=== PATIENT | male | born 1940 | race Caucasian/White ===

== ENCOUNTER → 2017-09-08 | Day surgery (SDC) | payer OTHER ==
[2017-08-31 15:25] VITALS: Ht 182.9 cm; Wt 108.2 kg
[~2017-09-08] VITALS: Ht 182.9 cm; Wt 108.2 kg
[~2017-09-08] MED LIST: 500ML BSS 0.3ML EPI 1:1000PF IRRIG ONE; ACETAMINOPHEN 325 MG TAB PO PRN; AMLO-110 PO; AMVISC PLUS 0.8ML SYRINGE INT OCU ONE; ATOR10TA82 PO; ATROPINE SULFATE 0.1 MG/ML 5ML SYR IV PRN; BSS FLUSH ONE; ENDOCOAT 0.85ML SYRINGE INT OCU ONE; EpHEDrine SULFATE INJ 50 MG/ML AMP IV PRN; EpINEphrine INJ 1MG/ML AMP 1 MG/ML AMP ONE; LACTATED RINGER'S 1000ML 500 ML IV SCH; LIDOCAINE 4% OP SOLN DROP CHARGE ONE; LIDOCAINE 4% OP SOLN DROP CHARGE OPL SCH; LIDOCAINE HCL 1% MPF 2 ML VIAL ONE; LORA-741 PO; LOSA1TAB38 PO; MIDAZOLAM HCL 1 MG/ML 2ML VIAL ONE; MIX: 4ML BSS 1ML EPI 1:1000 PF TOP ONE; MOXIFLOXACIN OPH SOLN PER DROP CHARGE ONE; NXM/40 PO; PHENYLEPHRINE HCL 10% OP SOLN 5 ML BTL OPL ONE; POVIDONE-IODINE OP SOLN 30 ML BTL ONE; PROPARACAINE 0.5% OP SOLN PER DROP CHARGE OPL SCH; PROPARACAINE HCL 0.5% OP SOLN 15 ML BTL OPL ONE; SERT25TA PO; TOBRAMYCIN/DEXAMETHASONE OPH OINT PER APPLN CHARGE ONE
[2017-09-08] MEDS: TROPICAMIDE 1% OP SOLN PER DROP CHARGE OPL SCH ×3 (07:10→07:20)
[2017-09-08] MEDS: PHENYLEPHRINE HCL 2.5% OP SOLN PER DROP CHARGE OPL SCH ×3 (07:10→07:19)
[2017-09-08] MEDS: CYCLOPENTOLATE HCL 1% OP SOLN PER DROP CHARGE OPL SCH ×3 (07:11→07:21)
[2017-09-08] MEDS: MOXIFLOXACIN OPH SOLN PER DROP CHARGE OPL SCH ×3 (07:12→07:22)
--- NOTE | 2017-09-08 07:33 | History & Physical Bridge - SC ---
H&P Re-Evaluation Bridge Note: I have examined the patient, reviewed the History & Physical and in the interval since the performance of the History & Physical I have noted the following changes of clinical significance: No changes noted
--- NOTE | 2017-09-08 08:50 | [facility] Post Operative Brief Note ---
Immediate Operative Summary Operative Date Sep 08, 2017. 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
--- NOTE | 2017-09-08 08:53 | Discharge Instructions-SurgCtr ---
Discharge Instructions Date of Service Sep 08, 2017. Visit Reason for Visit: Cataract Left Eye Discharge Discharge Diagnosis / Problem: left cataract Discharge Goals Goal(s): Decrease discomfort, Improve function Activity Recommendations Activity Limitations: as noted below Anesthesia . Post Anesthesia Instructions: If you have had General Anesthesia or IV Sedation: * Do not drive today. * Resume driving when surgeon permits. * Do not make important decisions or sign legal documents today. * Call surgeon for: 1. Temperature elevations greater than 101 degrees F. 2. Uncontrollable pain. 3. Excessive bleeding. 4. Persistent nausea and vomiting. 5. Medication intolerance (nausea, vomiting or rash). * For nausea and vomiting use only clear liquids such as: tea, soda, bouillon until nausea subsides, then gradually increase diet as tolerated. * If you have any concerns or questions, call your surgeon's office. If physician is unavailable and it is an emergency, call 911 or go to the nearest emergency room. . Instructions / Follow-Up Instructions / Follow-Up ACTIVITY RECOMMENDATIONS: * Light activities. * You may walk outside, read, watch television. * You may notice redness on the white part of the eye and some blurry vision - this is normal. MEDICATIONS: Resume previous medications unless instructed otherwise by your surgeon. Start all eye drops at 11 am today: * Eye drops (today): Prednisone - one drop in operative eye every 2 hours while awake Ofloxacin - one drop in operative eye every 2 hours while awake Ilevro - one drop in operative eye daily SPECIAL CARE INSTRUCTIONS: * Tape plastic shield over eye to sleep at night. Call your doctor at with any concerns or problems. FOLLOW UP VISIT: Follow-up with Dr Ding at [facility] as scheduled. Diet Recommendations Home Diet: no limitations Procedures Procedures Performed: Left Cataract Phacoemulsification With Intraocular Lens Implant Pending Studies Studies pending at discharge: no Medical Emergencies . Who to Call and When: Medical Emergencies: If at any time you feel your situation is an emergency, please call 911 immediately. . Non-Emergent Contact Non-Emergency issues call your: Surgeon . . "Provider Documentation" section prepared by Simone Ding. .
--- NOTE | 2017-09-08 08:53 | [facility] Operative Report ---
Operative Report Date of Service Sep 08, 2017. Operative Report DATE OF OPERATION: 09/08/17 PREOPERATIVE DIAGNOSIS: Senile nuclear cataract and astigmatism, left eye POSTOPERATIVE DIAGNOSIS: Senile nuclear cataract and astigmatism, left eye PROCEDURE PERFORMED: Femtosecond laser-assisted phacoemulsification with intraocular lens implantation, left eye SURGEON: Dr. Simone Ding ANESTHESIA: Topical with 1% intracameral lidocaine and monitored anesthesia care COMPLICATIONS: None DESCRIPTION OF PROCEDURE: After positively identifying the patient both verbally and by wristband in the preoperative area, the left eye was marked as the operative eye. Using a sterile marker, the 3:00, 6:00 and 9:00 positions on the limbus were marked after placing a drop of proparacaine. The patient was first taken to the laser room where the femtosecond laser was used to create the capsulotomy, lens fragmentation, main incision, and arcuate incisions. The patient was then brought back to the operating room by the anesthesia and nursing staff where they were given a drop of tetracaine and betadine into the operative eye. They were then sterilely prepped and draped in the standard fashion typical for ophthalmic surgery. Steri-strips were placed along the upper eyelids to keep the lashes back, and a lid speculum was placed into the operative eye. At this point, a documented time out was performed with members of the ophthalmology, nursing, and anesthesia staffs all agreeing upon the correct patient, correct location for surgery, correct procedure, and correct type and power of intraocular lens to be implanted. The microscope was then swung into position. Then, a paracentesis wound was made using a sideport blade. Then, in sequence, 1% preservative-free lidocaine followed by Endocoat viscoelastic was injected into the anterior chamber. Next , the main incision was opened with a Jasbir spatula, and Utrata forceps were used to remove the capsulotomy. Hydrodissection was then performed with BSS on a flat-tip cannula. Next, the phacoemulsification handpiece was introduced into the eye and used to remove the nucleus in a [id number]-[id number] fashion. This was done without complication and then the irrigation-aspiration handpiece was introduced into the eye and used to remove all remaining cortical and epinuclear material. Amvisc was then injected into the anterior chamber as well as into the capsular bag and using the lens injector system, an MX60 21.0 D lens, serial number [id number], and expiration date 03/2020 was injected into the capsular bag and rotated into the correct position. Next, the irrigation- aspiration handpiece was used to remove all remaining Amvisc. BSS was used to hydrate the main wound, and then BSS was injected into the paracentesis site to reach physiologic pressure and then the main wound was checked and found to be watertight. The patient was given drops of Vigamox and tobradex ointment into the operative eye, and then the surrounding area was cleaned and dried. A clear plastic shield was placed over the eye and the patient was then sat up and taken from the operating room by the anesthesia staff having tolerated the procedure well and suffering no complications. DISPOSITION: The patient was returned to the recovery room in stable condition. I attest to the content of the Intraoperative Record and any orders documented therein. Any exceptions are noted below.
[2017-09-08 08:55] VITALS: TEMP 36.5
[2017-09-08 09:10] VITALS: PULSE 64; O2SAT 95
[2017-09-08 09:21] VITALS: BP 146/80
--- NOTE | 2017-09-08 09:30 | Anesthesiology Progress Note ---
Anesthesia Post Op Note Date & Time Sep 08, 2017 at 09:30 Vital Signs Pain Intensity: 0 Vital Signs Past 12 Hours Date Time Temp Pulse Resp B/P (MAP) Pulse Ox O2 Delivery O2 Flow Rate FiO2 09/08/17 09:21 146/80 (102) 09/08/17 09:10 64 16 166/88 (114) 95 Room Air 09/08/17 08:55 36.5 68 16 156/101 (119) 96 Room Air 09/08/17 08:23 66 169/97 97 09/08/17 08:18 68 154/97 96 09/08/17 07:02 36.7 68 16 151/88 (109) 95 Room Air Notes Mental Status: alert / awake / arousable, participated in evaluation Nausea / Vomiting: adequately controlled Pain: adequately controlled Airway Patency, RR, SpO2: stable & adequate BP & HR: stable & adequate Hydration State: stable & adequate Anesthetic Complications: no major complications apparent
== END | disposition home or self-care (01) ==
LOC: X.SURG 06:45
PROVIDERS: ATTEND Ophthalmology
DX: H25.12 Age-related nuclear cataract, left eye (principal); I10 Essential (primary) hypertension; Z90.49 Acquired absence of other specified parts of digestive tract; Z90.89 Acquired absence of other organs; F41.9 Anxiety disorder, unspecified; Z79.899 Other long term (current) drug therapy; Z87.891 Personal history of nicotine dependence

== ENCOUNTER → 2017-09-22 | Day surgery (SDC) | payer OTHER ==
[2017-09-20 10:37] VITALS: Ht 182.9 cm; Wt 108.2 kg
[~2017-09-22] VITALS: Ht 182.9 cm; Wt 108.2 kg
[~2017-09-22] MED LIST changes: -LIDOCAINE 4% OP SOLN DROP CHARGE OPL SCH; +LIDOCAINE 4% OP SOLN DROP CHARGE OPR SCH; -PHENYLEPHRINE HCL 10% OP SOLN 5 ML BTL OPL ONE; +PHENYLEPHRINE HCL 10% OP SOLN 5 ML BTL OPR ONE; -PROPARACAINE 0.5% OP SOLN PER DROP CHARGE OPL SCH; +PROPARACAINE 0.5% OP SOLN PER DROP CHARGE OPR SCH; -PROPARACAINE HCL 0.5% OP SOLN 15 ML BTL OPL ONE; +PROPARACAINE HCL 0.5% OP SOLN 15 ML BTL OPR ONE
[2017-09-22] MEDS: PHENYLEPHRINE HCL 2.5% OP SOLN PER DROP CHARGE OPR SCH ×3 (07:22→07:35)
[2017-09-22] MEDS: TROPICAMIDE 1% OP SOLN PER DROP CHARGE OPR SCH ×3 (07:23→07:36)
[2017-09-22] MEDS: CYCLOPENTOLATE HCL 1% OP SOLN PER DROP CHARGE OPR SCH ×3 (07:24→07:38)
[2017-09-22] MEDS: MOXIFLOXACIN OPH SOLN PER DROP CHARGE OPR SCH ×3 (07:25→07:39)
--- NOTE | 2017-09-22 07:36 | History & Physical Bridge - [place] ---
H&P Re-Evaluation Bridge Note: Addendum: Right eye femtosecond laser-assisted cataract surgery.
--- NOTE | 2017-09-22 09:12 | [facility] Post Operative Brief Note ---
Immediate Operative Summary Operative Date Sep 22, 2017. Pre-Operative Diagnosis Right Eye Cataract Post-Operative Diagnosis same Procedure(s) Performed Right Cataract Phacoemulsification With Intraocular Lens Implant Surgeon Dr. Marcus Ding Critical Care Registered Nurse Surgeon(s) 0 Estimated Blood Loss 0 Findings Consistent with Post-Op Diagnosis Specimens none Anesthesia Type MAC Disposition Accompanied Pt To Recover: no Disposition:
[2017-09-22 09:15] VITALS: TEMP 36.6
--- NOTE | 2017-09-22 09:15 | [facility] Operative Report ---
Operative Report Date of Service Sep 22, 2017. Operative Report DATE OF OPERATION: 09/22/17 PREOPERATIVE DIAGNOSIS: Senile nuclear cataract and astigmatism, right eye POSTOPERATIVE DIAGNOSIS: Senile nuclear cataract and astigmatism, right eye PROCEDURE PERFORMED: Femtosecond laser-assisted phacoemulsification with toric intraocular lens implantation, right eye SURGEON: Dr. Simone Ding ANESTHESIA: Topical with 1% intracameral lidocaine and monitored anesthesia care COMPLICATIONS: None DESCRIPTION OF PROCEDURE: After positively identifying the patient both verbally and by wristband in the preoperative area, the right eye was marked as the operative eye. Using a sterile marker, the 3:00, 6:00, and 9:00 positions on the limbus were marked after placing a drop of proparacaine. A Robomarker was then used to tova the 26 degree axis for the toric lens The patient was taken to the laser room where the femtosecond laser was used to create the capsulotomy, lens fragmentation, and main incision. The patient was then brought back to the operating room by the anesthesia and nursing staff where they were given a drop of tetracaine and betadine into the operative eye. They were then sterilely prepped and draped in the standard fashion typical for ophthalmic surgery. Steri-strips were placed along the upper eyelids to keep the lashes back, and a lid speculum was placed into the operative eye. At this point, a documented time out was performed with members of the ophthalmology, nursing, and anesthesia staffs all agreeing upon the correct patient, correct location for surgery, correct procedure, and correct type and power of intraocular lens to be implanted. The microscope was then swung into position. Then, a paracentesis wound was made using a sideport blade. Then, in sequence, 1% preservative-free lidocaine followed by Endocoat viscoelastic was injected into the anterior chamber. Next , the main incision was opened with a Jasbir spatula, and Utrata forceps were used to remove the capsulotomy. Hydrodissection was then performed with BSS on a flat-tip cannula. Next, the phacoemulsification handpiece was introduced into the eye and used to remove the nucleus in a [[id number]-[id number] or stop-and -chop] fashion. This was done without complication and then the irrigation- aspiration handpiece was introduced into the eye and used to remove all remaining cortical and epinuclear material. Amvisc was then injected into the anterior chamber as well as into the capsular bag and using the lens injector system, a [id number] 21.0 D [id number] serial number, and expiration date 2020 was injected into the capsular bag and rotated into the correct position to correctly line up with the toric marking. Next, the irrigation-aspiration handpiece was used to remove all remaining Amvisc. BSS was used to hydrate the main wound, and then BSS was injected into the paracentesis site to reach physiologic pressure and then the main wound was checked and found to be watertight. The patient was given drops of Vigamox and tobradex ointment into the operative eye, and then the surrounding area was cleaned and dried. A clear plastic shield was placed over the eye and the patient was then sat up and taken from the operating room by the anesthesia staff having tolerated the procedure well and suffering no complications. DISPOSITION: The patient was returned to the recovery room in stable condition. I attest to the content of the Intraoperative Record and any orders documented therein. Any exceptions are noted below.
--- NOTE | 2017-09-22 09:16 | Discharge Instructions-SurgCtr ---
Discharge Instructions Date of Service Sep 22, 2017. Visit Reason for Visit: Right Cataract Discharge Discharge Diagnosis / Problem: right cataract Discharge Goals Goal(s): Decrease discomfort, Improve function Activity Recommendations Activity Limitations: as noted below Anesthesia . Post Anesthesia Instructions: If you have had General Anesthesia or IV Sedation: * Do not drive today. * Resume driving when surgeon permits. * Do not make important decisions or sign legal documents today. * Call surgeon for: 1. Temperature elevations greater than 101 degrees F. 2. Uncontrollable pain. 3. Excessive bleeding. 4. Persistent nausea and vomiting. 5. Medication intolerance (nausea, vomiting or rash). * For nausea and vomiting use only clear liquids such as: tea, soda, bouillon until nausea subsides, then gradually increase diet as tolerated. * If you have any concerns or questions, call your surgeon's office. If physician is unavailable and it is an emergency, call 911 or go to the nearest emergency room. . Instructions / Follow-Up Instructions / Follow-Up ACTIVITY RECOMMENDATIONS: * Light activities. * You may walk outside, read, watch television. * You may notice redness on the white part of the eye and some blurry vision - this is normal. MEDICATIONS: Resume previous medications unless instructed otherwise by your surgeon. Start all eye drops at 11:30 am today: * Eye drops (today): Prednisone - one drop in operative eye every 2 hours while awake Ofloxacin - one drop in operative eye every 2 hours while awake Ilevro - one drop in operative eye daily SPECIAL CARE INSTRUCTIONS: * Tape plastic shield over eye to sleep at night. Call your doctor at with any concerns or problems. FOLLOW UP VISIT: Follow-up with Dr Ding at [place] office as scheduled. Diet Recommendations Home Diet: no limitations Procedures Procedures Performed: Right Cataract Phacoemulsification With Intraocular Lens Implant Pending Studies Studies pending at discharge: no Medical Emergencies . Who to Call and When: Medical Emergencies: If at any time you feel your situation is an emergency, please call 911 immediately. . Non-Emergent Contact Non-Emergency issues call your: Surgeon . . "Provider Documentation" section prepared by Simone Ding. .
--- NOTE | 2017-09-22 09:29 | Anesthesiology Progress Note ---
Anesthesia Post Op Note Date & Time Sep 22, 2017 at 09:29 Vital Signs Pain Intensity: 0 Vital Signs Past 12 Hours Date Time Temp Pulse Resp B/P (MAP) Pulse Ox O2 Delivery O2 Flow Rate FiO2 09/22/17 09:15 36.6 58 16 155/83 (107) 94 Room Air 09/22/17 08:43 65 18 144/81 95 Room Air 09/22/17 08:34 60 18 138/82 94 Room Air 09/22/17 07:13 36.4 76 18 154/54 (87) 96 Room Air Notes Mental Status: alert / awake / arousable, participated in evaluation Nausea / Vomiting: adequately controlled Pain: adequately controlled Airway Patency, RR, SpO2: stable & adequate BP & HR: stable & adequate Hydration State: stable & adequate Anesthetic Complications: no major complications apparent
[2017-09-22 09:35] VITALS: O2SAT 96
[2017-09-22 09:40] VITALS: BP 155/85
== END | disposition home or self-care (01) ==
LOC: X.SURG 07:00
PROVIDERS: ATTEND Ophthalmology
DX: H25.11 Age-related nuclear cataract, right eye (principal); I10 Essential (primary) hypertension; K21.9 Gastro-esophageal reflux disease without esophagitis; E78.00 Pure hypercholesterolemia, unspecified; Z87.891 Personal history of nicotine dependence

== ENCOUNTER 2020-03-02 22:30 | Inpatient (IN) ==
--- OUTSIDE RECORDS SUMMARY | 2020-03-02 22:33 | External Medical Summary | Continuity of Care Document ---
:1940 Author Name Yolanda Tellez Address Unavailable Unavailable , Care Team Providers Name Role Phone Juwan Tellez, B Unavailable [email or web address] Unavailable Unavailable Unavailable Unavailable Unavailable Problems Active medical history not documented Allergies and Adverse Reactions Allergy history not documented Medications Medications not documented Procedures Procedures not documented Immunizations Immunizations not documented Plan of Treatment Planned Observations Planned Goals not documented Results No Known Results Results not documented
--- OUTSIDE RECORDS SUMMARY | 2020-03-02 22:33 | External Medical Summary | Continuity of Care Document ---
:1940 Author Name Yolanda Tellez Address Unavailable Unavailable , Care Team Providers Name Role Phone Juwan Tellez, B Unavailable [email or web address], [email or web address] Unavailable Unavailable Unavailable Unavailable Unavailable Problems Active medical history not documented Allergies and Adverse Reactions Allergy history not documented Medications Medications not documented Procedures Procedures not documented Immunizations Immunizations not documented Plan of Treatment Planned Observations Planned Goals not documented Results No Known Results Results not documented
[2020-03-02] MEDS ORDERED: SODIUM CHLORIDE 0.9% 1000ML 1,000 ML IV ONE (22:38)
[2020-03-02] MEDS ORDERED: PIPERACILL/TAZOBAC CONSULT ACTIVE PRN (22:40)
[2020-03-02] MEDS ORDERED: PIPERACILLIN/TAZOBACTAM 4.5 GM/120 ML BAG IV ONE (22:40)
--- NOTE | 2020-03-02 23:20 | Emergency Department Note ---
Impression & Plan Pneumonia, Hypoxia, Generalized weakness ED Provider Note NAME: ADAM SEVILLA JR AGE: 79 SEX: M : 1940 ARRIVES VIA: Walk-In INFORMANT: Patient, ED PROVIDER(S): Sal Serrano DO CHIEF COMPLAINT: Shortness of breath HPI: The patient is a 79-year-old male who presented to the emergency department for an evaluation of difficulty breathing. The patient was diagnosed this week with COVID-19. He states that multiple family members were also diagnosed with COVID-19. Over the course of the week he has been noticing increasing difficulty with ambulation and generalized weakness. He has had some falls from a standing position from generalized weakness. He denies any injury. He denies having any headache or head injury. He has no nausea or vomiting. He is had decreased p.o. intake because he states he does not feel hungry. He states he has had fevers and has been taking medications for fever. He states he had w orsening shortness of breath and cough. The cough is been overall nonproductive. He denies having any lower extremity swelling or pain. He states his symptoms are very severe especially with any ambulation. ROS: See above HPI for pertinent positives & negatives. A total of 10 systems reviewed and were otherwise negative. PAST MEDICAL HISTORY: See Below PAST SURGICAL HISTORY: See Below FAMILY HISTORY: See Below SOCIAL HISTORY: See Below HOME MEDICATIONS: See Below ALLERGIES: See Below VITALS: See Below PHYSICAL EXAMINATION: GENERAL: The patient is awake and alert. He is very listless and appears to be in mild to moderate distress. EYES: The conjunctivae are clear. The pupils are round and reactive. EARS, NOSE, MOUTH AND THROAT: The nose is without any evidence of any deformity. Mucous membranes are dry. NECK: The neck is nontender and supple. RESPIRATORY: Diminished breath sounds are noted throughout. There is poor air movement in the left lung field. Scattered rales are noted at the right base. CARDIOVASCULAR: Regular rate and rhythm noted there no murmurs rubs or gallops normal S1 normal S2. GASTROINTESTINAL: The abdomen is soft. Abdomen is nontender. MUSCULOSKELETAL/EXTREMITIES: There is no evidence of gross deformity full range of motion is noted in the hips and shoulders. SKIN: There is no obvious evidence of any rash. Trace pedal edema was noted bilaterally. NEUROLOGIC: Patient is awake alert and oriented x3 strength is symmetric patellar reflexes are 2+ bilaterally MEDICAL DECISION MAKING: The patient is a 79-year-old male who presented to the emergency department for an evaluation of generalized weakness and difficulty breathing. The patient has been noticing falls because of generalized weakness. He was diagnosed this week with COVID-19 after he had an exposure to a family member who also was positive for COVID-19. He was dropped off at the front door by a family member because he is been worsening with his symptoms. He was found to have significant hypoxia upon arrival to the emergency department. The patient was placed on supplemental oxygen with significant improvement of his hypoxia. I discussed the patient's laboratory and radiographic studies with him. He was treated with IV fluids and IV antibiotics without overhydration given the possibility of COVID-19 pneumonia. He was reevaluated multiple times. [facility]. [facility] have agreed to evaluate the patient in the emergency department for further management and disposition. Triage Nursing notes reviewed. Prior medical records reviewed Vital Signs: reviewed and remarkable for hypoxia Differential diagnosis: Reactive airway disease, pneumonia, pneumothorax, COPD, CHF, infections, cardiac ischemia, pulmonary embolism, musculoskeletal, gastrointestinal, as well as other pathologies. ER treatment provided: See below Diagnostics interpreted by me: ECG: EKG was obtained in the emergency department. My interpretation is normal sinus rhythm at 76 bpm. LVH was noted by voltage criteria. There is diffuse ST segment depressions noted. This was compared to a tracing from August 302014. No significant changes were noted. Cardiac Monitoring: An order was placed for continuous cardiac monitoring. The monitor shows a rate of 80 with sinus rhythm. Laboratory studies: As stated above and show below. Imaging studies: See below Consultation(s): 2330: I discussed this case with Dr. Collazo who is on-call for the [facility] hospitalist group. He is agreed to evaluate the patient in the emergency department for further management and disposition. ED COURSE: Procedures: none PDMP:reviewed and no issues Critical Care: I have personally spent greater than 60 minutes of critical care time in the direct management of this patient. This includes bedside care, interpretation of diagnostic studies, and testing, discussion with consultants, patient, and family members, and other required patient management activities. This 60 minutes is in excess of all separately billable procedures. Past Med/Surg History Medical History (Updated 03/03/20 @ 00:36 by Sal Serrano DO) Chest pain (Acute) Gastritis (Acute) GERD (gastroesophageal reflux disease) (Acute) Hypertension (Chronic) Social History Feels Safe at Home: Yes Smoking Status: Never smoker Allergies Allergies Allergy/AdvReac Type Severity Reaction Status Date / Time No Known Allergies Allergy Unknown Verified 03/02/20 23:07 Home Meds Home Medications Medication Instructions Recorded Confirmed amlodipine [Norvasc] 5 mg PO QAM 03/02/20 03/02/20 atorvastatin [Lipitor] 10 mg PO QAM 03/02/20 03/02/20 esomeprazole magnesium [Nexium] 40 mg PO QAM 03/02/20 03/02/20 lorazepam [Ativan] 0.5 mg PO TID PRN 03/02/20 03/02/20 losartan [Cozaar] 100 mg PO QAM 03/02/20 03/02/20 prednisone 0 mg PO UD 03/02/20 03/02/20 sertraline [Zoloft] 25 mg PO QAM 03/02/20 03/02/20 Results & Data (ED) Vital Signs Vital Signs - 24 hr 03/02/20 22:35 03/02/20 22:42 03/02/20 23:50 Temperature 37.2 C Temperature Source Oral Pulse Rate 81 77 Pulse Rhythm Regular Respiratory Rate 20 22 Blood Pressure 105/73 Blood Pressure Mean 83 Blood Pressure Position Lying Pulse Oximetry 77 L 93 93 Oxygen Delivery Method Room Air Nasal Cannula Nasal Cannula Oxygen Flow Rate 5 5 Sepsis Recent Fever Within 48 Hours No Sepsis New/Unexplained Change in Mental Status No Sepsis Action Taken by Nursing No Action Required Home Medications Current Medication List: was personally reviewed by me Laboratory Data Attestation: I reviewed the patient's lab results. Result diagrams: 03/02/20 23:42 03/02/20 23:42 Lab Results 03/02/20 03/02/20 03/02/20 Range/Units 22:40 23:42 23:42 WBC 10.46 (4.8-10.8) K/uL RBC 4.22 L (4.7-6.1) M/uL Hgb 12.1 L (14.0-18.0) g/dL Hct 36.8 L (42-52) % MCV 87.2 (80-100) fL MCH 28.7 (25-34) pg MCHC 32.9 (32-36) g/dL RDW Std Deviation 42.2 (36.4-46.3) fL RDW Coeff of Vinny 13.2 (11.5-14.5) % Plt Count 201 (130-400) K/uL MPV 11.0 H (7.4-10.4) fL Immature Gran % (Auto) 0.4 % Neut % (Auto) 74.1 % Lymph % (Auto) 12.6 % Harnett % (Auto) 12.8 % Eos % (Auto) 0.0 % Baso % (Auto) 0.1 % Neut # (Auto) 7.75 H (1.4-6.5) K/uL Lymph # (Auto) 1.32 (1.2-3.4) K/uL Harnett # (Auto) 1.34 H (0.11-0.59) K/uL Eos # (Auto) 0.00 (0-0.5) K/uL Baso # (Auto) 0.01 (0-0.2) K/uL Immature Gran # (Auto) 0.04 H (0.00-0.02) K/uL PT 11.9 (9.0-12.0) Seconds INR 1.1 (0.9-1.1) APTT 29.2 (21.0-31.0) Seconds PTT Ratio 1.0 VBG pH 7.48 H (7.36-7.41) VBG pCO2 38 (38-50) mmHg VBG pO2 45 mmHg VBG HCO3 27 mmol/L VBG O2 Saturation 79.8 % VBG Base Excess 3.5 mEq/L Sodium (136-145) mmol/L Potassium (3.5-5.1) mmol/L Chloride (98-107) mmol/L Carbon Dioxide (21-32) mmol/L Anion Gap (3-11) BUN (7-18) mg/dl Creatinine (0.6-1.4) mg/dl Est Cr Clr Drug Dosing ml/min Est GFR ( Amer) Est GFR (Non-Af Amer) BUN/Creatinine Ratio (10-20) Glucose (70-99) mg/dl Lactate (0.4-2.0) mmol/L Calcium (8.5-10.1) mg/dl Magnesium (1.8-2.4) mg/dl Total Bilirubin (0.2-1) mg/dl AST (15-37) U/L ALT (12-78) U/L Alkaline Phosphatase (45-117) U/L Lactate Dehydrogenase (87-241) U/L Total Creatine Kinase (39-308) U/L Troponin I (0-0.045) ng/ml Total Protein (6.4-8.2) gm/dl Albumin (3.4-5.0) gm/dl Globulin (2.5-4.0) gm/dl Albumin/Globulin Ratio (0.9-2) 03/02/20 03/02/20 03/02/20 Range/Units 23:42 23:42 23:46 WBC (4.8-10.8) K/uL RBC (4.7-6.1) M/uL Hgb (14.0-18.0) g/dL Hct (42-52) % MCV (80-100) fL MCH (25-34) pg MCHC (32-36) g/dL RDW Std Deviation (36.4-46.3) fL RDW Coeff of Vinny (11.5-14.5) % Plt Count (130-400) K/uL MPV (7.4-10.4) fL Immature Gran % (Auto) % Neut % (Auto) % Lymph % (Auto) % Harnett % (Auto) % Eos % (Auto) % Baso % (Auto) % Neut # (Auto) (1.4-6.5) K/uL Lymph # (Auto) (1.2-3.4) K/uL Harnett # (Auto) (0.11-0.59) K/uL Eos # (Auto) (0-0.5) K/uL Baso # (Auto) (0-0.2) K/uL Immature Gran # (Auto) (0.00-0.02) K/uL PT (9.0-12.0) Seconds INR (0.9-1.1) APTT (21.0-31.0) Seconds PTT Ratio VBG pH (7.36-7.41) VBG pCO2 (38-50) mmHg VBG pO2 mmHg VBG HCO3 mmol/L VBG O2 Saturation % VBG Base Excess mEq/L Sodium 134 L (136-145) mmol/L Potassium 3.7 (3.5-5.1) mmol/L Chloride 100 (98-107) mmol/L Carbon Dioxide 25 (21-32) mmol/L Anion Gap 9.0 (3-11) BUN 23 H (7-18) mg/dl Creatinine 1.29 (0.6-1.4) mg/dl Est Cr Clr Drug Dosing 59.4 ml/min Est GFR ( Amer) 61.6 Est GFR (Non-Af Amer) 53.1 BUN/Creatinine Ratio 18.1 (10-20) Glucose 127 H (70-99) mg/dl Lactate 1.0 (0.4-2.0) mmol/L Calcium 8.3 L (8.5-10.1) mg/dl Magnesium 2.0 (1.8-2.4) mg/dl Total Bilirubin 0.8 (0.2-1) mg/dl AST 26 (15-37) U/L ALT 30 (12-78) U/L Alkaline Phosphatase 54 (45-117) U/L Lactate Dehydrogenase 274 H (87-241) U/L Total Creatine Kinase 142 (39-308) U/L Troponin I 0.028 (0-0.045) ng/ml Total Protein 7.1 (6.4-8.2) gm/dl Albumin 2.9 L (3.4-5.0) gm/dl Globulin 4.2 H (2.5-4.0) gm/dl Albumin/Globulin Ratio 0.7 L (0.9-2) Imaging Data Attestation: I personally reviewed and interpreted this imaging study as follows: My Impression: Portable chest x-ray was obtained in the emergency department. My interpretation is severe bilateral infiltrates consistent with bilateral pneumonia. There is no free air. Heart size is normal. Blood Pressure Blood Pressure Findings: Low blood pressure Discharge Plan Visit Data Chief Complaint: Fall Stated Complaint: FALL ED Provider: Sal Serrano Discharge Problem: Pneumonia, Hypoxia, Generalized weakness Patient Disposition: Admitted As Inpatient Condition: Fair Forms Stand Alone Forms: My [facility] Prescriptions Prescriptions: No Action prednisone 10 mg tablet 0 mg PO UD RF: 0 atorvastatin [Lipitor] 10 mg tablet 10 mg PO QAM RF: 0 amlodipine [Norvasc] 5 mg tablet 5 mg PO QAM RF: 0 lorazepam [Ativan] 0.5 mg tablet 0.5 mg PO TID PRN (Reason: Anxiety) RF: 0 esomeprazole magnesium [Nexium] 40 mg capsule,delayed release(DR/EC) 40 mg PO QAM RF: 0 sertraline [Zoloft] 25 mg tablet 25 mg PO QAM RF: 0 losartan [Cozaar] 100 mg tablet 100 mg PO QAM RF: 0 Referrals Referrals: Robyn Parham DO [Primary Care Provider] -
[2020-03-02 23:53] LABS: Base Excess VBG 3.5 mEq/L; HCO3 VBG 27 mmol/L; Oxygen Saturation VBG 79.8 %; PCO2 VBG 38 mmHg (38-50); PO2 VBG 45 mmHg; pH VBG 7.48 (7.36-7.41)
[2020-03-03 00:02] LABS: Basophils # (auto) 0.01 K/uL (0-0.2); Basophils % (auto) 0.1 %; Hematocrit (blood only) 36.8 % (42-52); Hemoglobin 12.1 g/dL (14.0-18.0); Immature Granulocytes # (auto) 0.04 K/uL (0.00-0.02); Immature Granulocytes % (auto) 0.4 %; Lymphocytes # (auto) 1.32 K/uL (1.2-3.4); Lymphocytes % (auto) 12.6 %; Mean Corpuscular Hemoglobin 28.7 pg (25-34); Mean Corpuscular Hgb Conc 32.9 g/dL (32-36); Mean Corpuscular Volume 87.2 fL (80-100); Monocytes # (auto) 1.34 K/uL (0.11-0.59); Monocytes % (auto) 12.8 %; Neutrophils # (auto) 7.75 K/uL (1.4-6.5); Neutrophils % (auto) 74.1 %; Platelet Count 201 K/uL (130-400); RDW Coefficient of Variation 13.2 % (11.5-14.5); RDW Standard Deviation 42.2 fL (36.4-46.3); Red Blood Count 4.22 M/uL (4.7-6.1); White Blood Count 10.46 K/uL (4.8-10.8)
[2020-03-03] MEDS ORDERED: IPRATROPIUM BROMIDE HFA INHALER INH STA (00:03)
[2020-03-03] MEDS ORDERED: dexAMETHasone 1.5 ML IV STA (00:06)
[2020-03-03] MEDS ORDERED: ALBUTEROL HFA 8 GM INHALER INH STA (00:08)
[2020-03-03 00:14] LABS: INR 1.1 (0.9-1.1); Partial Thromboplastin Time 29.2 Seconds (21.0-31.0); Prothrombin Time 11.9 Seconds (9.0-12.0)
[2020-03-03 00:21] LABS: Potassium 3.7 mmol/L (3.5-5.1)
[2020-03-03 00:26] LABS: Albumin Level 2.9 gm/dl (3.4-5.0); BUN Creatinine Ratio 18.1 (10-20); Calcium 8.3 mg/dl (8.5-10.1); Creatinine Clr Calc Pharmacy 59.4 ml/min; Est GFR (African American) 61.6; Est GFR (Non-African American) 53.1
[2020-03-03 00:31] LABS: Albumin Globulin Ratio 0.7 (0.9-2); Bilirubin,Total 0.8 mg/dl (0.2-1); Globulin 4.2 gm/dl (2.5-4.0); Total Protein 7.1 gm/dl (6.4-8.2); Troponin I 0.028 ng/ml (0-0.045)
--- NOTE | 2020-03-03 01:14 | History & Physical Report ---
Date of Service March 03, 2020 Assessment & Plan (1) Acute hypoxemic respiratory failure: Secondary to COVID 19 bronchopneumonia, severe disease hypertension, stable prediabetes, outpatient hemoglobin A1c of 6.01 July 2019 Acute on chronic anemia, hemoglobin drop from baseline past tobacco abuse Medical telemetry Supplemental O2 Baseline ABG Decadron course Combivent MDI RTC given expiratory wheezes Pulmonary consult RE respiratory failure, COVID-19 pneumonia Remdesevir given severity of disease if pulmonary okay Anemia work-up, transfuse PRBC if hemoglobin less than 7 and or for symptomatic anemia Basal insulin, ISS BG goal [id number], update hemoglobin A1c DVT prophylaxis with Lovenox subcu Full code Case discussed with Dr. 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 He recommends Remdesevir and convalescent plasma tx given severity of illness. Total critical time was 40 minutes. History of Present Illness Search 3 Chief Complaint: Worsening shortness of breath Primary Care Provider: Robyn Parham, History obtained from patient and records. Medical history significant for hypertension, hyperlipidemia, prediabetes as per records, past tobacco abuse, chronic anemia (baseline hemoglobin of 13), skin cancer as per records. Patient not feeling well the last 6 days. Raspy barking cough. No chest pain or S OB initially. Later with watery diarrhea symptoms without abdominal pain. 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 PCP prescribed steroid course for possible bronchitis. Arrangements made for outpatient COVID-19 testing. Patient and 's COVID-19 swabs later found to be positive. Patient and instructed to quarantine at home. Patient later noted pleuritic chest pain with coughing and worsening shortness of breath. Chest pain improve on the flat/supine position as per patient. Cough continues to be dry as per patient. Generalized weakness without syncope. Poor appetite. Fever at home. At the ER, O2 sats noted to be 70s on room air initially. 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 Allergies Allergy/AdvReac Type Severity Reaction Status Date / Time No Known Allergies Allergy Unknown Verified 03/02/20 23:07 Home Medications Home Medications Medication Instructions Recorded Confirmed Type amlodipine [Norvasc] 5 mg PO QAM 03/02/20 03/02/20 History atorvastatin [Lipitor] 10 mg PO QAM 03/02/20 03/02/20 History esomeprazole magnesium [Nexium] 40 mg PO QAM 03/02/20 03/02/20 History lorazepam [Ativan] 0.5 mg PO TID PRN 03/02/20 03/02/20 History losartan [Cozaar] 100 mg PO QAM 03/02/20 03/02/20 History prednisone 0 mg PO UD 03/02/20 03/02/20 History sertraline [Zoloft] 25 mg PO QAM 03/02/20 03/02/20 History Past Med/Surg History Medical History (Updated 03/03/20 @ 08:19 by Andrés Barraza MD) Chest pain (Acute) Gastritis (Acute) GERD (gastroesophageal reflux disease) (Acute) Hypertension (Chronic) Social History Preferred Language: Moroccan Communication Ability: Effective Municipal Court Magistrate Required: No Beliefs That Will Affect Care: None Current Living Situation: Spouse Feels Safe at Home: Yes Safety Concerns: Feels Safe At This Time Smoking Status: Former smoker Hx Alcohol Use: Yes Alcohol type: beer Hx Substance Use: No Review of Systems Review of Systems: As per HPI, all 10 systems reviewed, all other ROS negative Physical Exam Physical Exam: GENERAL: uncomfortable, anxious, minimal respiratory distress, obese SKIN: Pallor , warm HEENT: Alopecia, bespectacled, pale palpebral conjunctivae, no ptosis, dry buccal mucosa, nasal cannula in place NECK : Supple, no tenderness CHEST : Crackles both lung montes expiratory wheezes, no tenderness HEART : RRR, no obvious murmurs ABDOMEN: Some distention, nontender RECTAL : Intact sphincter, yellow stool (FOBT negative) EXTREMITIES : No LE swelling/tenderness, no other conspicuous deformities noted NEUROLOGIC : Coherent, no facial asymmetry, no other gross focality Results & Data Results & Data ([facility]) Vital Signs (Past 12 Hours) Vital Signs Temp Pulse Resp BP Pulse Ox 03/02/20 23:50 77 22 93 03/02/20 22:42 93 03/02/20 22:35 37.2 C 81 20 105/73 77 L Laboratory Results Laboratory Results WBC 10.46 K/uL (4.8-10.8) 07/04/20 23:42 RBC 4.22 M/uL (4.7-6.1) L 03/02/20 23:42 Hgb 12.1 g/dL (14.0-18.0) L 03/02/20 23:42 Hct 36.8 % (42-52) L 03/02/20 23:42 MCV 87.2 fL (80-100) 03/02/20 23:42 MCH 28.7 pg (25-34) 03/02/20 23:42 MCHC 32.9 g/dL (32-36) 03/02/20 23:42 RDW Std Deviation 42.2 fL (36.4-46.3) 03/02/20 23: RDW Coeff of Vinny 13.2 % (11.5-14.5) 03/02/20 23: Plt Count 201 K/uL (130-400) 03/02/20 23:42 MPV 11.0 fL (7.4-10.4) H 03/02/20 23:42 Immature Gran % (Auto) 0.4 % 03/02/20 23:42 Neut % (Auto) 74.1 % 03/02/20 23:42 Lymph % (Auto) 12.6 % 03/02/20 23:42 Ford % (Auto) 12.8 % 03/02/20 23:42 Eos % (Auto) 0.0 % 03/02/20 23:42 Baso % (Auto) 0.1 % 03/02/20 23:42 Neut # (Auto) 7.75 K/uL (1.4-6.5) H 03/02/20 23:42 Lymph # (Auto) 1.32 K/uL (1.2-3.4) 03/02/20 23:42 Ford # (Auto) 1.34 K/uL (0.11-0.59) H 03/02/20 23:42 Eos # (Auto) 0.00 K/uL (0-0.5) 03/02/20 23:42 Baso # (Auto) 0.01 K/uL (0-0.2) 03/02/20 23:42 Immature Gran # (Auto) 0.04 K/uL (0.00-0.02) H 03/02/20 23:42 PT 11.9 Seconds (9.0-12.0) 03/02/20 23:42 INR 1.1 (0.9-1.1) 03/02/20 23:42 APTT 29.2 Seconds (21.0-31.0) 03/02/20 23:42 PTT Ratio 1.0 03/02/20 23:42 VBG pH 7.48 (7.36-7.41) H 03/02/20 22:40 VBG pCO2 38 mmHg (38-50) 03/02/20 22:40 VBG pO2 45 mmHg 03/02/20 22:40 VBG HCO3 27 mmol/L 03/02/20 22:40 VBG O2 Saturation 79.8 % 03/02/20 22:40 VBG Base Excess 3.5 mEq/L 03/02/20 22:40 Sodium 134 mmol/L (136-145) L 03/02/20 23:42 Potassium 3.7 mmol/L (3.5-5.1) 03/02/20 23:42 Chloride 100 mmol/L (98-107) 03/02/20 23:42 Carbon Dioxide 25 mmol/L (21-32) 03/02/20 23:42 Anion Gap 9.0 (3-11) 03/02/20 23:42 BUN 23 mg/dl (7-18) H 03/02/20 23:42 Creatinine 1.29 mg/dl (0.6-1.4) 03/02/20 23:42 Est Cr Clr Drug Dosing 59.4 ml/min 03/02/20 23:42 Est GFR ( Amer) 61.6 03/02/20 23:42 Est GFR (Non-Af Amer) 53.1 03/02/20 23:42 BUN/Creatinine Ratio 18.1 (10-20) 03/02/20 23:42 Glucose 127 mg/dl (70-99) H 03/02/20 23:42 Lactate 1.0 mmol/L (0.4-2.0) 03/02/20 23:46 Calcium 8.3 mg/dl (8.5-10.1) L 03/02/20 23:42 Magnesium 2.0 mg/dl (1.8-2.4) 03/02/20 23:42 Total Bilirubin 0.8 mg/dl (0.2-1) 03/02/20 23:42 AST 26 U/L (15-37) 03/02/20 23:42 ALT 30 U/L (12-78) 03/02/20 23:42 Alkaline Phosphatase 54 U/L (45-117) 03/02/20 23:42 Lactate Dehydrogenase 274 U/L (87-241) H 03/02/20 23:42 Total Creatine Kinase 142 U/L (39-308) 03/02/20 23:42 Troponin I 0.028 ng/ml (0-0.045) 03/02/20 23:42 Total Protein 7.1 gm/dl (6.4-8.2) 03/02/20 23:42 Albumin 2.9 gm/dl (3.4-5.0) L 03/02/20 23:42 Globulin 4.2 gm/dl (2.5-4.0) H 03/02/20 23:42 Albumin/Globulin Ratio 0.7 (0.9-2) L 03/02/20 23:42 Procalcitonin 0.31 ng/ml (0-0.5) 03/02/20 23:42 Diagnostic Findings Chest x-ray as per my interpretation bilateral pneumonia EKG as per my interpretation : Rate 75, NSR, LAD, LAFB, LVH, no ischemia
[2020-03-03] MEDS ORDERED: CONSULT PHARMACY STA (01:37)
[2020-03-03] MEDS ORDERED: TRAMADOL HCL 50 MG TABLET PO PRN (02:55)
[2020-03-03] MEDS ORDERED: GLUCAGON FOR INJ 1 MG VIAL SQ PRN (02:55)
[2020-03-03] MEDS ORDERED: DEXTROSE 50% 50 ML SYRINGE IV PRN (02:55)
[2020-03-03] MEDS ORDERED: CARBOHYDRATES FOR HYPOGLYCEMIA PO PRN (02:55)
[2020-03-03] MEDS ORDERED: GLUCOSE 10 TABS/TUBE PO PRN (02:55)
[2020-03-03] MEDS ORDERED: GLUCOSE 40% GEL 15 GM TUBE PO PRN (02:55)
[2020-03-03] MEDS ORDERED: PROMETHAZINE HCL 12.5 MG in SODIUM CHLORIDE 0.9% 50 ML IV PRN (02:55)
[2020-03-03] MEDS ORDERED: ACETAMINOPHEN 325 MG TAB PO PRN (02:55)
[2020-03-03] MEDS ORDERED: INSULIN GLARGINE SOLOSTAR 100 UNITS/ML 3 ML PEN SC ONE ×2 (03:15→21:00)
[2020-03-03] MEDS ORDERED: REMDESIVIR 200 mg: Day 1 IV ONE (03:30)
[2020-03-03] MEDS: guaiFENesin 600 MG TABCR PO SCH ×3 (03:40→20:14)
[2020-03-03] MEDS: INSULIN ASPART 100 UNITS/ML 3 ML PEN SC SCH ×5 (03:54→20:30)
[2020-03-03 05:00] LABS: Hematocrit (blood only) 33.6 % (42-52); Hemoglobin 11.5 g/dL (14.0-18.0); Mean Corpuscular Hgb Conc 34.2 g/dL (32-36); Mean Corpuscular Volume 84.8 fL (80-100); Mean Platelet Volume 10.6 fL (7.4-10.4); Platelet Count 171 K/uL (130-400); RDW Standard Deviation 39.8 fL (36.4-46.3); Red Blood Count 3.96 M/uL (4.7-6.1); White Blood Count 11.33 K/uL (4.8-10.8)
[2020-03-03 05:03] LABS: Base Excess ABG 2.1 mEq/L (-9-1.8); HCO3 ABG 25 mmol/L (19-24); Oxygen Saturation ABG 93.3 % (90-95); PCO2 ABG 35 mmHg (35-46); PO2 ABG 67 mmHg (80-95); pH ABG 7.48 (7.35-7.45)
[2020-03-03 05:07] LABS: Allen Test Pos (Pos)
[2020-03-03 05:20] LABS: Basophils # (auto) 0.01 K/uL (0-0.2); Basophils % (auto) 0.1 %; Immature Granulocytes # (auto) 0.05 K/uL (0.00-0.02); Immature Granulocytes % (auto) 0.4 %; Lymphocytes # (auto) 0.88 K/uL (1.2-3.4); Lymphocytes % (auto) 7.8 %; Monocytes # (auto) 0.88 K/uL (0.11-0.59); Monocytes % (auto) 7.8 %; Neutrophils # (auto) 9.51 K/uL (1.4-6.5); Neutrophils % (auto) 83.9 %
[2020-03-03 05:28] LABS: Albumin Level 2.6 gm/dl (3.4-5.0); BUN Creatinine Ratio 18.5 (10-20); Calcium 7.8 mg/dl (8.5-10.1); Creatinine Clr Calc Pharmacy 63.3 ml/min; Est GFR (African American) 66.5; Est GFR (Non-African American) 57.4; Potassium 3.7 mmol/L (3.5-5.1)
[2020-03-03 05:31] LABS: Albumin Globulin Ratio 0.7 (0.9-2); Bilirubin,Total 0.9 mg/dl (0.2-1); Ferritin 1298.9 ng/ml (8-388); Total Protein 6.6 gm/dl (6.4-8.2)
[2020-03-03] MEDS: NSS 30mL Flush, Days 1-5 IV SCH (05:57)
[2020-03-03] MEDS: ALBUTEROL HFA 8 GM INHALER INH SCH ×4 (08:20→19:27)
[2020-03-03] MEDS: IPRATROPIUM BROMIDE HFA INHALER INH SCH ×4 (08:20→19:27)
[2020-03-03] MEDS: SERTRALINE HCL 50 MG TABLET PO SCH (08:21)
--- NOTE | 2020-03-03 08:22 | Pulmonary Consultation ---
Date of Consultation March 03, 2020 Assessment & Plan (1) Acute hypoxemic respiratory failure: Impression: 79-year-old male with COVID-19 viral pneumonia admitted with progressive hypoxemic respiratory failure. Recommendations: 1. Hypoxemic respiratory failure: Continue supplemental oxygen titrated to keep saturations 85 to 90%. Okay to transition to high flow oxygen if needed. Would give the patient 1 dose of Lasix to see if there is any component of potential hydrostatic edema contributing to his hypoxemic respiratory failure. Would also recommend empiric antibiotics as were unable to exclude potential secondary bacterial component. Will place on Rocephin and doxycycline and anticipate 3 to 5-day course. Could consider self pronating if the patient has progressive increasing oxygen requirement 2. Novel coronavirus pneumonia/infection: Inflammatory markers elevated. He harrison s received Remdesivir and should complete the course. Orders were entered by the primary service for convalescent plasma through the [facility] clinical trial. Continue zinc. He has been started on dexamethasone per recent study demonstrating benefit in patients with severe disease. Would recommend rechecking inflammatory markers in 48 hours Recommend discussion with patient and family as to whether or not he would want aggressive efforts including intubation mechanical ventilation should his respiratory status decline. Consideration for palliative care consultation would also be appropriate to define goals of therapy in the event the patient should clinically worsen. This is deferred to the primary service (2) COVID-19: History of Present Illness Attending Physician: Yesica Boyer MD History of Present Illness Asked by hospitalist to assist in management of this patient admitted with hypoxemic respiratory failure due to novel coronavirus infection. History is obtained from discussion with the hospitalist as well as review the electronic medical record. The patient is a 79-year-old male with a history of hypertension and depression as well as overweight who apparently was diagnosed with novel coronavirus last week. The actual test is not available in our system to review but this was reported to the ER staff and the admitting hospitalist. Over the last week the patient has had issues with progressive weakness and shortness of breath. He was dropped off the emergency room last night due to shortness of breath and found to be significantly hypoxemic. He was placed on supplemental oxygen. Chest x-ray demonstrated bibasilar pulmonary infiltrates. His inflammatory markers were elevated. He was admitted to the hospitalist service and started on zinc, Remdesivir and an order was placed for convalescent plasma which is currently pending. Allergies Allergy/AdvReac Type Severity Reaction Status Date / Time No Known Allergies Allergy Unknown Verified 03/02/20 23:07 Home Medications Home Medications Medication Instructions Recorded Confirmed Type amlodipine [Norvasc] 5 mg PO QAM 03/02/20 03/02/20 History atorvastatin [Lipitor] 10 mg PO QAM 03/02/20 03/02/20 History esomeprazole magnesium [Nexium] 40 mg PO QAM 03/02/20 03/02/20 History lorazepam [Ativan] 0.5 mg PO TID PRN 03/02/20 03/02/20 History losartan [Cozaar] 100 mg PO QAM 03/02/20 03/02/20 History prednisone 0 mg PO UD 03/02/20 03/02/20 History sertraline [Zoloft] 25 mg PO QAM 03/02/20 03/02/20 History Patient History Medical History (Updated 03/03/20 @ 08:19 by Andrés Barraza MD) Chest pain (Acute) Gastritis (Acute) GERD (gastroesophageal reflux disease) (Acute) Hypertension (Chronic) Social History Preferred Language: Macedonian Communication Ability: Effective [employer]/S[employer] Manager Required: No Beliefs That Will Affect Care: None Current Living Situation: Spouse Feels Safe at Home: Yes Safety Concerns: Feels Safe At This Time Smoking Status: Former smoker Hx Alcohol Use: Yes Alcohol type: beer Hx Substance Use: No Review of Systems Review of Systems: Please refer to admission H&P. No changes. Physical Exam Physical Exam: Physical exam deferred due to COVID-19 restrictions and hospital policy. Please refer to the exam from the primary service from today Results & Data Results & Data ([facility]) Vital Signs (Past 12 Hours) Vital Signs Temp Pulse Pulse Resp BP BP Pulse Ox 03/03/20 08:09 36.3 C L 70 16 144/76 H 92 03/03/20 04:44 36.5 C 03/03/20 03:49 82 03/03/20 02:57 38.3 C H 82 26 H 122/68 89 L 03/03/20 02:00 82 24 137/65 94 03/03/20 01:30 82 24 164/72 H 92 03/03/20 01:03 80 20 142/72 H 92 03/02/20 23:50 77 22 93 03/02/20 22:42 93 03/02/20 22:35 37.2 C 81 20 105/73 77 L Laboratory Results 03/03/20 04:00 03/03/20 04:00 ESR 49 03/02/20 03/03/20 22:40 04:00 ABG pH 7.48 H ABG pCO2 35 ABG pO2 67 L ABG HCO3 25 H ABG O2 Saturation 93.3 ABG Base Excess 2.1 H VBG pH 7.48 H VBG pCO2 38 VBG pO2 45 VBG HCO3 27 VBG O2 Saturation 79.8 VBG Base Excess 3.5 Ferritin 1298 LDH 274 C-reactive protein 17 Procalcitonin 0.31 Diagnostic Findings Chest x-ray from yesterday was independently reviewed. It demonstrates bibasilar pulmonary infiltrates. PG Care Time/CCT Total # of Minutes Spent Total Time Spent with Patient: Total time spent is greater than 50% in coor dination of care (as documented) at patient's floor/unit and/or counseling patient: Coding Level of Care Code 74963 Initial Inpt Care Lvl 3 Diagnoses Acute hypoxemic respiratory failure J96.01 COVID-19 U07.1 Time Spent (min) 55
[2020-03-03] MEDS: LOSARTAN POTASSIUM 50 MG TAB PO SCH (08:24)
[2020-03-03] MEDS: ATORVASTATIN 10 MG TAB PO SCH (08:24)
[2020-03-03] MEDS: PANTOprazole 40 MG TAB PO SCH (08:25)
[2020-03-03] MEDS: AMLODIPINE BESYLATE 5 MG TAB PO SCH (08:25)
[2020-03-03] MEDS ORDERED: FUROSEMIDE 40 MG TAB PO ONE (08:30)
[2020-03-03] MEDS: ASCORBIC ACID 500 MG TAB PO SCH ×2 (08:31→20:15)
[2020-03-03] MEDS: MAGNESIUM OXIDE 400 MG TAB PO SCH (08:31)
[2020-03-03] MEDS: CHOLECALCIFEROL 1,000 UNITS 25 MCG TAB PO SCH (08:32)
[2020-03-03] MEDS: ZINC SULFATE 220 MG CAPSULE PO SCH (08:32)
--- NOTE | 2020-03-03 08:56 | XRay Report ---
XR chest 1V portable HISTORY: 79 years-old Male SEPSIS acute sepsis with reported Covid 19 COMPARISON: Chest radiograph 08/30/2014 TECHNIQUE: Portable AP view of the chest FINDINGS: Multifocal mixed interstitial and alveolar opacities are noted within the bilateral mid and lower diane g zones. Cardiac silhouette is mildly enlarged. No overt pulmonary edema, pneumothorax or large pleur al effusion.. Remote fracture of the mid left clavicle. Degenerative changes of the shoulders and spi ne. IMPRESSION: Mixed interstitial and alveolar opacities within the mid and lower lung zones are compati ble with multifocal pneumonia. Close follow-up is needed. ACT 112: Negative or not required by law. The above report was generated using voice recognition software. It may contain grammatical, syntax o r spelling errors. Electronically signed by: Pietro Padilla M.D. 03/03/2020 8:55 AM
[2020-03-03] MEDS ORDERED: ENOXAPARIN INJ 40 MG/0.4 ML SYR SQ SCH (09:00)
[2020-03-03 10:41] LABS: D Dimer 990 ug/L FEU (0-500)
[2020-03-03] MEDS: cefTRIAXone SODIUM 2,000 MG in DEXTROSE 5% 50 ML IV SCH (11:07)
[2020-03-03] MEDS: DOXYCYCLINE HYCLATE 100 MG CAP PO SCH ×2 (11:07→20:14)
--- NOTE | 2020-03-03 12:18 | Electrocardiogram Report ---
Test Reason : Blood Pressure : / mmHG Vent. Rate : 076 BPM Atrial Rate : 076 BPM P-R Int : 164 ms QRS Dur : 104 ms QT Int : 380 ms P-R-T Axes : 052 -36 030 degrees QTc Int : 427 ms Normal sinus rhythm Left axis deviation Minimal voltage criteria for LVH, may be normal variant Abnormal ECG When compared with ECG of 30-AUG-2014 07:46, No significant change was found Confirmed by Sal Charles ([id number]) on 03/03/2020 12:17:41 PM Referred By: REFERRED SELF Confirmed By:Sal Charles
[2020-03-03] MEDS ORDERED: ACETAMINOPHEN 325 MG TAB PO ONE (12:50)
[2020-03-03] MEDS: ENOXAPARIN 100 MG/1ML SYR SC SCH ×2 (14:02→20:14)
--- NOTE | 2020-03-03 14:51 | Hospitalist Progress Note ---
Date of Service March 03, 2020 Assessment & Plan (1) Acute hypoxemic respiratory failure: . (2) COVID-19: (3) Pneumonia: (4) Hypoxia: He and his recently tested positive for COVID-19 outpatient Present on admission with worsening SOB, fever, cough associated with diarrhea CXR showed mixed interstitial and alveolar opacities within the mid and lower lung zones are compatible with multifocal pneumonia Just starting on high flow oxygen since oxygen saturation dropped below 80% on 10L NC Pt appears to be at high risk of progression to life threatening illness Pulmonology on board Received Remdesivir and would complete the course. Convalescent plasma through the [facility] clinical trial ordered Dr. Truong explained to the patient about the [place] study and Convalescent plasma in details Pt signed the consent forms to participate in the study and to received the Convalescent Plasma Continue Dexamethasone 6mg IV for now, will plan to transition once pt respiratory status improves to complete 10days course Will monitor BS while on dexamethasone Starting on Rocephin and doxycycline and anticipate 3 to 5-day course to cover for bacterial pneumonia Continue high flow oxygen and keep oxygen saturation btw 85 to 90 % Will monitor inflammatory markers CRP, ESR, Ferritin level Monitor LFT closely while on Remdesivir Discussed with patient about mechanical ventilation in the events his respiratory status continue to worsening while on high flow oxygen, He agreed with mechanical Ventilation if requires Started on Zinc, Vitamin C, Vitamin D3 and Magnesium supplements Case discussed with Pulmonology Dr. Barraza I called his to update her and no one answered. Left her a VM to call back Will keep on PCU for now Continue monitor closely (5) Generalized weakness: Due to acute illness Fall precaution (6) Elevated d-dimer: D-dimer 990 Initiated therapeutic Lovenox for now Will repeat Ddimer in am If pt will require anticoagulant, will consider to change lovenox to eliquis (7) Elevated glucose: Due to Dexamethasone No hx of Diabetes Will check Hba1c Continue insulin sliding scale Will consult pharmacy for glycemic management Continue monitor BS (8) Hypertension: BP stable Continue Losartan and amlodipine Continue monitor BP closely DVT px on Lovenox subq CODE status Full code Admission and Anticipated Discharge Date Admission Date: March 03, 2020 Subjective Pt was seen and examined Lying in bed with mild respiratory distress Pt said that he continues to have a dry cough He said that he had 2 episodes of diarrhea this morning I called his Charlee, unfortunately she did not answered. Left VM to call back Pt said that he feels weak Denies any chest pain, palpitation and dizziness Physical Exam Physical Exam: General- No acute distress Head- atraumatic Eyes- PERRL, EOMI, ENT- oropharynx clear Neck- supple, no JVD Lungs- diminished breath sound Heart- regular rhythm; no murmur Abdomen- normal bowel sounds, soft, +tender in L side of abdomen with deep palpation Extremities- no calf tenderness Neuro- alert, oriented x 3; PERRL, EOMI; no facial palsy; no dysarthria Skin- warm & dry Results & Data Results & Data ([facility]) Vital Signs (Past 12 Hours) Vital Signs Temp Pulse Pulse Resp BP Pulse Ox 03/03/20 13:04 69 03/03/20 11:34 36.7 C 72 16 134/70 95 03/03/20 08:09 36.3 C L 70 16 144/76 H 92 03/03/20 04:44 36.5 C 03/03/20 03:49 82 03/03/20 02:57 38.3 C H 82 26 H 122/68 89 L (1) Pneumonia Laterality: bilateral Lung location: unspecified part of lung Pneumonia type: due to unspecified organism Qualified Code(s): J18.9 - Pneumonia, unspecified organism
[2020-03-03] MEDS ORDERED: PHARMACY GLYCEMIC MGMT CONSULT PRN (17:30)
--- NOTE | 2020-03-03 18:06 | Pharmacy Report ---
PHA: Glycemic Control AP - Date of Service March 03, 2020 - Assessment & Plan Laboratory Tests 03/03/20 03/03/20 03/03/20 03:39 08:15 11:30 POC Glucose 157 H 214 H 264 H 03/03/20 16:48 POC Glucose 188 H Insulin resistance: Receiving DXM 6mg IV q24h, Doxy/Rocephin, Remdesivir. A1c pending 76 AM. * Basal insulin: Lantus 5 units sq 75 in AM. Give Lantus 10 units sq this evening, reassess 7/6 AM. * Correctional Insulin: Novolog Correction per scale ACHS Goal Range: Low 140 mg/dL - High 180 mg/dL Tighten Correction Factor to: 20 mg/dL/unit * Prandial insulin: Tighten Carb ratio to 1 unit per 8 grams CHO consumed Pharmacy will continue to monitor patient daily and write orders per [facility] inpatient glycemic control protocol. Thanks. * Please note that the plan above was derived based on current level of insulin resistance and hospital stress. These recommendations are appropriate for inpatient admission only. Plan of care upon discharge will need to be reassessed to avoid potential outpatient hypo/hyperglycemia.
[2020-03-04] MEDS: REMDESIVIR 100mg: Days 2-5 IV SCH (03:54)
[2020-03-04] MEDS: ACETAMINOPHEN 500 MG TAB PO PRN ×2 (03:55→09:29)
[2020-03-04] MEDS: NSS 30mL Flush, Days 1-5 IV SCH (05:22)
[2020-03-04 07:11] LABS: D Dimer 550 ug/L FEU (0-500)
[2020-03-04 07:17] LABS: BUN Creatinine Ratio 23.2 (10-20); Calcium 8.1 mg/dl (8.5-10.1); Creatinine Clr Calc Pharmacy 74.3 ml/min; Est GFR (African American) 80.8; Est GFR (Non-African American) 69.7; Potassium 3.6 mmol/L (3.5-5.1)
[2020-03-04 07:22] LABS: C Reactive Protein 14.8 mg/dl (0-0.29); Ferritin 1555.4 ng/ml (8-388)
[2020-03-04] MEDS: IPRATROPIUM BROMIDE HFA INHALER INH SCH ×4 (07:23→19:06)
[2020-03-04] MEDS: ALBUTEROL HFA 8 GM INHALER INH SCH ×4 (07:23→19:06)
[2020-03-04 07:33] LABS: Estimated Average Glucose 148 mg/dl; Hemoglobin A1C 6.8 % (4.5-5.6)
[2020-03-04] MEDS: INSULIN ASPART 100 UNITS/ML 3 ML PEN SC SCH ×4 (07:48→20:46)
[2020-03-04] MEDS: MAGNESIUM OXIDE 400 MG TAB PO SCH (08:00)
[2020-03-04] MEDS: ASCORBIC ACID 500 MG TAB PO SCH ×2 (08:00→21:15)
[2020-03-04] MEDS: CHOLECALCIFEROL 1,000 UNITS 25 MCG TAB PO SCH (08:00)
[2020-03-04] MEDS: PANTOprazole 40 MG TAB PO SCH (08:00)
[2020-03-04] MEDS: ATORVASTATIN 10 MG TAB PO SCH (08:01)
[2020-03-04] MEDS: ZINC SULFATE 220 MG CAPSULE PO SCH (08:01)
[2020-03-04] MEDS: ENOXAPARIN 100 MG/1ML SYR SC SCH (08:01)
[2020-03-04] MEDS: SERTRALINE HCL 50 MG TABLET PO SCH (08:01)
[2020-03-04] MEDS: DOXYCYCLINE HYCLATE 100 MG CAP PO SCH ×2 (08:01→21:16)
[2020-03-04] MEDS: guaiFENesin 600 MG TABCR PO SCH ×2 (08:01→21:16)
[2020-03-04] MEDS: AMLODIPINE BESYLATE 5 MG TAB PO SCH (08:01)
[2020-03-04] MEDS: LOSARTAN POTASSIUM 50 MG TAB PO SCH (08:02)
[2020-03-04] MEDS: cefTRIAXone SODIUM 2,000 MG in DEXTROSE 5% 50 ML IV SCH (08:03)
[2020-03-04] MEDS: DEXAMETHASONE SOD PHOSPHATE 6 MG in SYRINGE 0 ML IV SCH (08:04)
[2020-03-04] MEDS ORDERED: INSULIN GLARGINE SOLOSTAR 100 UNITS/ML 3 ML PEN SC SCH (09:00)
[2020-03-04] MEDS ORDERED: INSULIN GLARGINE SOLOSTAR 100 UNITS/ML 3 ML PEN SC ONE (09:00)
--- NOTE | 2020-03-04 12:28 | Pulmonology Progress Note ---
Date of Service March 04, 2020 Assessment & Plan (1) Acute hypoxemic respiratory failure: Impression: 79-year-old male with COVID-19 viral pneumonia admitted with progressive hypoxemic respiratory failure. Covid-19 was done as an outpatient approximately a week ago. The actual test result is not available in our system but it was reported to the ER staff and admitting hospitalist. --Acute hypoxic respiratory failure Secondary to multilobar pneumonia in the Covid-19 positive patient Continue with high flow to maintain saturation 88 to 92%. Awake proning if there is desaturation even on high flow. Continue with Remdesivir for total of 5 days and later decide whether the patient will benefit from another 5 days of dosing. Continue with dexamethasone 6 mg daily for total of 10 days. Recommend PPI post access Continue with zinc Orders for convalescent plasma has been ordered as per the [facility] trial. Patient CRP is trending down to 14.8 from 17. CPK, AST, ALT and creatinine within normal limit. Procalcitonin has been negative. I would repeat a procalcitonin again tomorrow. We will continue with antibiotic coverage as well for at least 5 days. Plan: Recommend strict in and out. Consider placing [place]. Given the patient is not in respiratory distress continue with the current care. If there is worsening in oxygenation Tocilizumab can be considered. (2) COVID-19: Admission and Anticipated Discharge Date Admission Date: March 03, 2020 Subjective Patient was observed from outside of the room. On the monitor system he was saturating 92% on 70% high flow 30 L with heart rate of 74 at rest. His respiratory rate was around 16/min. Patient did not seem to be in any distress. T-max 38.3 early in the morning today Review of Systems Review of Systems: Not obtained Physical Exam Physical Exam: Deferred due to covid 19 restrictions. Please refer to exam from primary service today. Results & Data Results & Data ([facility]) Vital Signs (Past 12 Hours) Vital Signs Temp Pulse Pulse Pulse Resp BP Pulse Ox 03/04/20 11:36 37.5 C 69 18 122/67 88 L 03/04/20 11:21 69 16 90 03/04/20 11:20 69 16 90 03/04/20 07:58 37.4 C 77 18 149/71 H 95 03/04/20 07:47 36.5 C 84 96 H 18 156/72 H 96 03/04/20 07:24 71 20 89 L 03/04/20 07:23 71 20 89 L 03/04/20 03:53 38.3 C H 80 24 161/78 H 87 L 03/04/20 03:16 75 24 92 03/03/20 04:00 03/04/20 06:18 Laboratory Tests 03/04/20 03/04/20 03/04/20 06:18 06:18 06:18 ESR 52 H D-Dimer 550 H* Ferritin 1555.4 H C-Reactive Protein 14.80 H PG Care Time/CCT Total # of Minutes Spent Total Time Spent with Patient: Total time spent is greater than 50% in coordination of care (as documented) at patient's floor/unit and/or counseling patient: Coding Level of Care Code 60964 Subseq Hosp Care Lvl 2 Diagnoses Acute hypoxemic respiratory failure J96.01 COVID-19 U07.1
[2020-03-04] MEDS ORDERED: PIPERACILL/TAZOBAC CONSULT ACTIVE PRN (13:03)
[2020-03-04] MEDS ORDERED: PIPERACILLIN/TAZOBACTAM 3.375 GM in DEXTROSE 5% 100 ML IV ONE (13:30)
--- NOTE | 2020-03-04 15:08 | Hospitalist Progress Note ---
Date of Service March 04, 2020 Assessment & Plan (1) Acute hypoxemic respiratory failure: . (2) COVID-19: (3) Pneumonia: (4) Hypoxia: He and his recently tested positive for COVID-19 outpatient Present on admission with worsening SOB, fever, cough associated with diarrhea CXR showed mixed interstitial and alveolar opacities within the mid and lower lung zones are compatible with multifocal pneumonia Just starting on high flow oxygen since oxygen saturation dropped below 80% on 10L NC Pt appears to be at high risk of progression to life threatening illness Pulmonology on board Received Remdesivir and would complete the course. Convalescent plasma through the [facility] clinical trial ordered Dr. Truong explained to the patient about the [place] study and Convalescent plasma in details Pt signed the consent forms to participate in the study and to received the Convalescent Plasma Waiting for the Convalescent plasma from [facility] (Called the blood bank and did not receive the plasma convalescent yet) Continue Dexamethasone 6mg IV daily for now, will plan to transition once pt respiratory status improves to complete 10days course Continue monitor BS while on dexamethasone Continue high flow oxygen and keep oxygen saturation btw 85 to 90 % ESR slightly increased from 49 to 52, ferritin increased from 1298. CRP decreased from 17 to 14, D-dimer dropped from 990 to 550 today Continue monitor inflammatory markers CRP, ESR, Ferritin level every 48hrs Blood cx positive for gram negative bacilli IV Rocephin changed to IV Zosyn and will continue IV doxycycline for now Will repeat procalcitonin tomorrow Liver enzymes stable, will continue monitor LFT closely while on Remdesivir Discussed with patient about mechanical ventilation in the events his respiratory status continue to worsening while on high flow oxygen, He agreed with mechanical Ventilation if requires Continue Zinc, Vitamin C, Vitamin D3 and Magnesium supplements Case discussed with Pulmonology Sam If his respiratory status does not improves and worsening in oxygenation Tocilizumab can be considered 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 [employer] recommended to change Lovenox to 40mg BID subq for now Advised pt to continue with proning Continue monitor closely in PCU (5) Bacteremia: Blood cx positive for Gram negative bacilli Febrile with Tmax 38.3 IV Rocephin changed to IV Zosyn and continue IV doxycycline Repeat blood cx collected today Will check Procalcitonin tomorrow Will continue monitor closely (6) Generalized weakness: Due to acute illness Fall precaution Will do PT/OT once respiratory status stable (7) Elevated d-dimer: D-dimer 990 on admission, trending down to 550 today Case discussed with Pulmonology Dr. Vargas that recommended to change Lovenox to 40mg BID If pt will require short term anticoagulant on discharge, will consider to change lovenox to eliquis (8) Elevated glucose: Due to Dexamethasone Hba1c 6.8 on 03/04/20 Continue insulin sliding scale Pharmacy on board for glycemic management Continue monitor BS (9) Hypertension: BP stable Continue Losartan and amlodipine Continue monitor BP closely DVT px on Lovenox subq CODE status Full code Disposition Continue monitor closely in PCU Admission and Anticipated Discharge Date Admission Date: March 03, 2020 Subjective Pt was seen and examined Lying in bed with mild respiratory distress Pt said that he feels very weak He said that he continues to have diarrhea He said that his room feels very hot He said that he is breathing slightly improves compare to when he came Continue to require high flow oxygen with oxygen saturation 90% Called his Charlee and provided with updates Current denies any chest pain, palpitation, dizziness Physical Exam Physical Exam: General- No acute distress Head- atraumatic Eyes- PERRL, EOMI, ENT- oropharynx clear Neck- supple, no JVD Lungs- diminished breath sound Heart- regular rhythm; no murmur Abdomen- normal bowel sounds, soft, +tender in L side of abdomen with deep palpation Extremities- no calf tenderness Neuro- alert, oriented x 3; PERRL, EOMI; no facial palsy; no dysarthria Skin- warm & dry Results & Data Results & Data ([facility]) Vital Signs (Past 12 Hours) Vital Signs Temp Pulse Pulse Pulse Resp BP Pulse Ox 03/04/20 11:36 37.5 C 69 18 122/67 88 L 03/04/20 11:21 69 16 90 03/04/20 11:20 69 16 90 03/04/20 07:58 37.4 C 77 18 149/71 H 95 03/04/20 07:47 36.5 C 84 96 H 18 156/72 H 96 03/04/20 07:24 71 20 89 L 03/04/20 07:23 71 20 89 L 03/04/20 03:53 38.3 C H 80 24 161/78 H 87 L 03/04/20 03:16 75 24 92 (1) Pneumonia Laterality: bilateral Lung location: unspecified part of lung Pneumonia type: due to unspecified organism Qualified Code(s): J18.9 - Pneumonia, unspecified organism
[2020-03-04] MEDS: PIPERACILLIN/TAZOBACTAM 3.375 GM in DEXTROSE 5% 100 ML IV SCH (17:42)
[2020-03-04 18:03] LABS: Appearance Urine Clear (Clear); Bilirubin Urine Negative (Negative); Blood Urine Negative (Negative); Color Urine Yellow; Glucose Urine UA Negative (Negative); Ketones Urine Negative (Negative); Leukocyte Esterase Urine Negative (Negative); Nitrite Urine Negative (Negative); Protein Urine Negative (Negative); Specific Gravity Urine 1.023 (1.000-1.030); Urobilinogen Urine Negative (Negative); pH Urine 5.5 (4.5-7.5)
[2020-03-04] MEDS: ENOXAPARIN INJ 40 MG/0.4 ML SYR SQ SCH (20:34)
[2020-03-04] MEDS ORDERED: ACETAMINOPHEN 325 MG TAB PO ONE (21:00)
[2020-03-04] MEDS ORDERED: ENOXAPARIN 100 MG/1ML SYR SC SCH (21:00)
[2020-03-05] MEDS: PIPERACILLIN/TAZOBACTAM 3.375 GM in DEXTROSE 5% 100 ML IV SCH ×3 (01:00→17:40)
[2020-03-05] MEDS: REMDESIVIR 100mg: Days 2-5 IV SCH (03:55)
[2020-03-05] MEDS: NSS 30mL Flush, Days 1-5 IV SCH (05:17)
[2020-03-05 06:40] LABS: Potassium 3.4 mmol/L (3.5-5.1)
[2020-03-05 06:41] LABS: BUN Creatinine Ratio 23.5 (10-20); Calcium 8.4 mg/dl (8.5-10.1); Est GFR (African American) 85.8; Est GFR (Non-African American) 74.1
[2020-03-05] MEDS: ALBUTEROL HFA 8 GM INHALER INH SCH ×4 (07:33→19:54)
[2020-03-05] MEDS: IPRATROPIUM BROMIDE HFA INHALER INH SCH ×4 (07:34→19:54)
[2020-03-05] MEDS ORDERED: POTASSIUM CHLORIDE 20 MEQ TABCR PO STA (08:10)
[2020-03-05] MEDS: CYANOCOBALAMIN 500 MCG TABLET (VITAMIN B-12) PO SCH (08:42)
[2020-03-05] MEDS: DEXAMETHASONE SOD PHOSPHATE 6 MG in SYRINGE 0 ML IV SCH (08:42)
[2020-03-05] MEDS: DOXYCYCLINE HYCLATE 100 MG CAP PO SCH ×2 (08:42→21:46)
[2020-03-05] MEDS: ASCORBIC ACID 500 MG TAB PO SCH ×2 (08:43→21:46)
[2020-03-05] MEDS: MAGNESIUM OXIDE 400 MG TAB PO SCH (08:43)
[2020-03-05] MEDS: PANTOprazole 40 MG TAB PO SCH (08:43)
[2020-03-05] MEDS: ATORVASTATIN 10 MG TAB PO SCH (08:43)
[2020-03-05] MEDS: guaiFENesin 600 MG TABCR PO SCH ×2 (08:43→21:46)
[2020-03-05] MEDS: LOSARTAN POTASSIUM 50 MG TAB PO SCH (08:43)
[2020-03-05] MEDS: AMLODIPINE BESYLATE 5 MG TAB PO SCH (08:43)
[2020-03-05] MEDS: ENOXAPARIN INJ 40 MG/0.4 ML SYR SQ SCH ×2 (08:44→21:44)
[2020-03-05] MEDS: SERTRALINE HCL 50 MG TABLET PO SCH (08:44)
[2020-03-05] MEDS: ZINC SULFATE 220 MG CAPSULE PO SCH (08:44)
[2020-03-05] MEDS: CHOLECALCIFEROL 1,000 UNITS 25 MCG TAB PO SCH (08:45)
[2020-03-05] MEDS: INSULIN ASPART 100 UNITS/ML 3 ML PEN SC SCH ×4 (08:45→22:24)
[2020-03-05] MEDS ORDERED: INSULIN GLARGINE SOLOSTAR 100 UNITS/ML 3 ML PEN SC ONE (09:00)
--- NOTE | 2020-03-05 12:19 | Pulmonology Progress Note ---
Date of Service March 05, 2020 Assessment & Plan (1) Acute hypoxemic respiratory failure: Impression: 79-year-old male with COVID-19 viral pneumonia admitted with progressive hypoxemic respiratory failure. Covid-19 was done as an outpatient approximately a week ago. The actual test result is not available in our system but it was reported to the ER staff and admitting hospitalist. --Acute hypoxic respiratory failure Secondary to multilobar pneumonia in the Covid-19 positive patient Continue with high flow to maintain saturation 88 to 92%. Awake proning if there is desaturation even on high flow. Continue with Remdesivir for total of 5 days and later decide whether the patient will benefit from another 5 days of dosing. Continue with dexamethasone 6 mg daily for total of 10 days. Recommend PPI Continue with zinc Orders for convalescent plasma has been ordered as per the [facility] trial. Patient CRP is trending down to 14.8 from 17. CPK, AST, ALT and creatinine within normal limit. Procalcitonin has been negative. Repeat procalcitonin 03/05/2020 0.19, would continue with antibiotics for total of 5 days. Plan: Clinically patient seems to be improving given the oxygen requirements are going down. Antibiotics were changed to Zosyn because 1 of the blood culture was growing gram-negative bacilli. I repeated the blood pressure please follow it up to make sure this is not contaminant. Urine is clean. Repeat ferritin, CRP, ESR and d-dimer in the morning. (2) COVID-19: Admission and Anticipated Discharge Date Admission Date: March 03, 2020 Subjective Patient seen from outside of the room. Patient was breathing comfortably at the rate of 18/min on high flow. Saturation was 91% on 60% high flow 30 L Patient does not seem to be in any distress. Review of Systems Review of Systems: Not obtained Physical Exam Physical Exam: Deferred due to covid 19 restrictions. Please refer to exam from primary service today. Results & Data Results & Data ([facility]) Vital Signs (Past 12 Hours) Vital Signs Temp Pulse Pulse Resp BP BP Pulse Ox 03/05/20 11:56 37.1 C 74 14 130/72 90 03/05/20 08:00 67 03/05/20 07:30 36.7 C 67 24 118/91 88 L 03/05/20 07:20 66 20 88 L 03/05/20 04:00 72 16 92 03/05/20 03:06 69 18 82 L 03/05/20 03:00 67 17 148/84 H 88 L 03/05/20 05:30 PG Care Time/CCT Total # of Minutes Spent Total Time Spent with Patient: Total time spent is greater than 50% in coordination of care (as documented) at patient's floor/unit and/or counseling patient: Coding Level of Care Code 02537 Subseq Hosp Care Lvl 2 Diagnoses Acute hypoxemic respiratory failure J96.01 COVID-19 U07.1
--- NOTE | 2020-03-05 17:11 | Hospitalist Progress Note ---
Date of Service March 05, 2020 Assessment & Plan (1) Acute hypoxemic respiratory failure: . (2) COVID-19: (3) Pneumonia: (4) Hypoxia: He and his recently tested positive for COVID-19 outpatient Present on admission with worsening SOB, fever, cough associated with diarrhea CXR showed mixed interstitial and alveolar opacities within the mid and lower lung zones are compatible with multifocal pneumonia Just starting on high flow oxygen since oxygen saturation dropped below 80% on 10L NC Pt appears to be at high risk of progression to life threatening illness Pulmonology on board Received Remdesivir and would complete the course. Convalescent plasma through the [facility] clinical trial ordered Dr. Truong explained to the patient about the [place] study and Convalescent plasma in details Pt signed the consent forms to participate in the study and to received the Convalescent Plasma Received 1 unit of Convalescent plasma on 03/04/20- No complications Continue Dexamethasone 6mg IV daily for now, will plan to transition once pt respiratory status improves to complete 10days course Continue monitor BS while on dexamethasone Continue high flow oxygen and keep oxygen saturation btw 88 to 92 % ESR slightly increased from 49 to 52, ferritin increased from 1298. CRP decreased from 17 to 14, D-dimer dropped from 990 to 550 today Continue monitor inflammatory markers CRP, ESR, Ferritin level every 48hrs Blood cx positive for gram negative bacilli possible contamination, repeat blood cx on 03/04 showed no growth so far IV Rocephin changed to IV Zosyn and Continue IV doxycycline and Zosyn for now Repeat procalcitonin today normal Liver enzymes stable, will continue monitor LFT closely while on Remdesivir Discussed with patient about mechanical ventilation in the events his respiratory status continue to worsening while on high flow oxygen, He agreed with mechanical Ventilation if requires Continue Zinc, Vitamin C, Vitamin D3 and Magnesium supplements Case discussed with Pulmonology Sam If his respiratory status does not improves and worsening in oxygenation Tocilizumab can be considered as per brick off bearer Continue Lovenox 40mg BID subq as per brick off bearer Dr. Vargas Will check ferritin, ESR, CRP and D-dimer in am Advised pt to continue with proning Clinically improves Continue monitor closely in PCU (5) Bacteremia: Blood cx positive for Gram negative bacilli Febrile with Tmax 38.3 IV Rocephin changed to IV Zosyn and continue IV doxycycline Repeat blood cx collected on 03/04 showed no growth for now Repeat procalcitonin today negative Continue IV abx with Zosyn and Rocephin Will continue monitor closely (6) Generalized weakness: Due to acute illness Fall precaution Will do PT/OT once respiratory status stable (7) Elevated d-dimer: D-dimer 990 on admission, trending down to 550 today Case discussed with Pulmonology Dr. Vargas that recommended to change Lovenox to 40mg BID If pt will require short term anticoagulant on discharge, will consider to change lovenox to eliquis Will check D-dimer in am (8) Elevated glucose: Due to Dexamethasone Hba1c 6.8 on 03/04/20 Continue insulin sliding scale Pharmacy on board for glycemic management Continue monitor BS (9) Hypertension: BP stable Continue Losartan and amlodipine Continue monitor BP closely DVT px on Lovenox subq CODE status Full code Disposition Continue monitor closely in PCU Spoke to Charlee for update Admission and Anticipated Discharge Date Admission Date: March 03, 2020 Subjective Pt was seen and examined Sitting at the edge of the bed with no acute distress Pt said that his breathing feels a lot better today He said that he is not struggle to breath now He said that he only had 2 episodes of diarrhea and his stool is getting loose now Denies any chest pain, palpitation, dizziness and fever Physical Exam Physical Exam: General- No acute distress Head- atraumatic Eyes- PERRL, EOMI, ENT- oropharynx clear Neck- supple, no JVD Lungs- diminished breath sound Heart- regular rhythm; no murmur Abdomen- normal bowel sounds, soft, +tender in L side of abdomen with deep palpation Extremities- no calf tenderness Neuro- alert, oriented x 3; PERRL, EOMI; no facial palsy; no dysarthria Skin- warm & dry Results & Data Results & Data ([facility]) Vital Signs (Past 12 Hours) Vital Signs Temp Pulse Pulse Resp BP Pulse Ox 03/05/20 16:14 36.7 C 64 18 154/71 H 91 03/05/20 15:30 71 18 88 L 03/05/20 11:56 37.1 C 74 14 130/72 90 03/05/20 11:30 73 16 94 03/05/20 08:00 67 03/05/20 07:30 36.7 C 67 24 118/91 88 L 03/05/20 07:20 66 20 88 L (1) Pneumonia Laterality: bilateral Lung location: unspecified part of lung Pneumonia type: due to unspecified organism Qualified Code(s): J18.9 - Pneumonia, unspecified organism
[2020-03-06] MEDS: PIPERACILLIN/TAZOBACTAM 3.375 GM in DEXTROSE 5% 100 ML IV SCH ×3 (02:17→19:34)
[2020-03-06] MEDS: REMDESIVIR 100mg: Days 2-5 IV SCH (05:52)
[2020-03-06] MEDS: NSS 30mL Flush, Days 1-5 IV SCH (05:52)
[2020-03-06 07:08] LABS: Hematocrit (blood only) 33.7 % (42-52); Hemoglobin 11.5 g/dL (14.0-18.0); Mean Corpuscular Hemoglobin 29.2 pg (25-34); Mean Corpuscular Hgb Conc 34.1 g/dL (32-36); Mean Corpuscular Volume 85.5 fL (80-100); Mean Platelet Volume 10.8 fL (7.4-10.4); Platelet Count 296 K/uL (130-400); RDW Coefficient of Variation 13.6 % (11.5-14.5); RDW Standard Deviation 42.6 fL (36.4-46.3); Red Blood Count 3.94 M/uL (4.7-6.1); White Blood Count 12.88 K/uL (4.8-10.8)
[2020-03-06 07:20] LABS: D Dimer 500 ug/L FEU (0-500)
[2020-03-06] MEDS: IPRATROPIUM BROMIDE HFA INHALER INH SCH ×4 (07:20→19:24)
[2020-03-06] MEDS: ALBUTEROL HFA 8 GM INHALER INH SCH ×4 (07:20→19:24)
[2020-03-06 07:32] LABS: C Reactive Protein 7.03 mg/dl (0-0.29); Creatinine Clr Calc Pharmacy 84.9 ml/min; Est GFR (African American) 95.1; Est GFR (Non-African American) 82.1
[2020-03-06 07:36] LABS: Ferritin 881.2 ng/ml (8-388)
[2020-03-06] MEDS: ASCORBIC ACID 500 MG TAB PO SCH ×2 (08:05→21:44)
[2020-03-06] MEDS: CYANOCOBALAMIN 500 MCG TABLET (VITAMIN B-12) PO SCH (08:05)
[2020-03-06] MEDS: DOXYCYCLINE HYCLATE 100 MG CAP PO SCH ×2 (08:05→21:44)
[2020-03-06] MEDS: DEXAMETHASONE SOD PHOSPHATE 6 MG in SYRINGE 0 ML IV SCH (08:05)
[2020-03-06] MEDS: ENOXAPARIN INJ 40 MG/0.4 ML SYR SQ SCH ×2 (08:06→21:44)
[2020-03-06] MEDS: LOSARTAN POTASSIUM 50 MG TAB PO SCH (08:06)
[2020-03-06] MEDS: SERTRALINE HCL 50 MG TABLET PO SCH (08:06)
[2020-03-06] MEDS: CHOLECALCIFEROL 1,000 UNITS 25 MCG TAB PO SCH (08:06)
[2020-03-06] MEDS: AMLODIPINE BESYLATE 5 MG TAB PO SCH (08:07)
[2020-03-06] MEDS: ATORVASTATIN 10 MG TAB PO SCH (08:07)
[2020-03-06] MEDS: ZINC SULFATE 220 MG CAPSULE PO SCH (08:07)
[2020-03-06] MEDS: PANTOprazole 40 MG TAB PO SCH (08:07)
[2020-03-06] MEDS: guaiFENesin 600 MG TABCR PO SCH ×2 (08:07→21:44)
[2020-03-06] MEDS: INSULIN GLARGINE SOLOSTAR 100 UNITS/ML 3 ML PEN SC SCH (08:30)
[2020-03-06] MEDS: INSULIN ASPART 100 UNITS/ML 3 ML PEN SC SCH ×4 (08:30→21:43)
--- NOTE | 2020-03-06 08:38 | Pulmonology Progress Note ---
Date of Service March 06, 2020 Assessment & Plan (1) Acute hypoxemic respiratory failure: Impression: 79-year-old male with COVID-19 viral pneumonia admitted with progressive hypoxemic respiratory failure. Covid-19 was done as an outpatient approximately a week ago. The actual test result is not available in our system but it was reported to the ER staff and admitting hospitalist. --Acute hypoxic respiratory failure Secondary to multilobar pneumonia in the Covid-19 positive patient Continue with high flow to maintain saturation 88 to 92%. Awake proning if there is desaturation even on high flow. Continue with Remdesivir for total of 5 days and later decide whether the patient will benefit from another 5 days of dosing. Continue with dexamethasone 6 mg daily for total of 10 days. Recommend PPI Continue with zinc Orders for convalescent plasma has been ordered as per the [facility] trial. Patient CRP is trending down 17-->14.8-->7. CPK and creatinine within normal limit. Ferritin trending down. ESR staying around 50 Procalcitonin has been negative. Repeat procalcitonin 03/05/2020 0.19, would continue with antibiotics for total of 5 days. Plan: Clinically patient seems to be more tachypnic today. His O2 requirements have gone up. His inflammatory markers are trending down. He is positive 3.5 liters since coming to the hospital. I am going to order CXR, BNP to follow up on infiltrates. Will give a dose of lasix. If he continues to be tachypnic and goes up to high 20's mid 30's. Trial of BiPAP should be considered 12/8 70%. Awake proning should be given a try. AST/ALT trending up a little, likely from remdesivir. Would monitor. (2) COVID-19: Admission and Anticipated Discharge Date Admission Date: March 03, 2020 Subjective Patient was seen from the glass door. Seems to be more tachypnic today in the mid 20's although he was off hi-flow as he was cleaning his nose. FiO2 requirement has gone up from 50 to 80% right now. Review of Systems Review of Systems: Not obtained Physical Exam Physical Exam: Deferred due to covid 19 restrictions. Please refer to exam from primary service today. Results & Data Results & Data ([facility]) Vital Signs (Past 12 Hours) Vital Signs Temp Pulse Pulse Resp BP Pulse Ox 03/06/20 08:00 36.8 C 72 24 143/78 H 82 L 03/06/20 07:24 68 18 89 L 03/06/20 07:20 63 18 90 03/06/20 05:58 36.9 C 65 16 153/84 H 95 03/06/20 03:12 60 21 92 03/06/20 02:17 36.7 C 66 18 129/78 95 03/06/20 01:35 62 24 90 03/05/20 23:02 53 L 20 87 L 03/05/20 22:00 36.7 C 66 18 151/79 H 89 L 03/06/20 06:48 03/06/20 06:48 PG Care Time/CCT Total # of Minutes Spent Total Time Spent with Patient: Total time spent is greater than 50% in coordination of care (as documented) at patient's floor/unit and/or counseling patient: Coding Level of Care Code 76972 Subseq Hosp Care Lvl 2 Diagnoses Acute hypoxemic respiratory failure J96.01 COVID-19 U07.1
[2020-03-06] MEDS ORDERED: FUROSEMIDE 40 MG in SYRINGE 0 ML IV ONE (09:19)
[2020-03-06] MEDS ORDERED: FUROSEMIDE 20 MG in SYRINGE 0 ML IV ONE (09:30)
--- NOTE | 2020-03-06 10:02 | XRay Report ---
XR chest 1V portable CLINICAL HISTORY: f/u hypoxia COMPARISON STUDY: Chest radiograph March 02, 2020. FINDINGS: There is no pneumothorax or pleural effusion. Cardiomediastinal silhouette is stable. Bilat eral airspace opacities have slightly improved. IMPRESSION: Persistent, but slightly improved, bilateral airspace opacities. Pneumonia is favored. P ulmonary edema could appear similar but is considered less likely. ACT 112: Negative or not required by law. Electronically signed by: Marc Molina M.D. 03/06/2020 10:01 AM
--- NOTE | 2020-03-06 12:18 | Hospitalist Progress Note ---
Date of Service March 06, 2020 Assessment & Plan (1) Acute hypoxemic respiratory failure: . (2) COVID-19: (3) Pneumonia: (4) Hypoxia: He and his recently tested positive for COVID-19 outpatient Presented on admission with worsening SOB, fever, cough associated with diarrhea CXR showed mixed interstitial and alveolar opacities within the mid and lower lung zones are compatible with multifocal pneumonia Currently on high flow oxygen since oxygen saturation dropped below 80% on 10L [place] High risk of progression to life threatening illness Pulmonology on board Received Remdesivir. Today is Day 3 of Remdesivir therapy. Would complete the 5 day course. Convalescent plasma through the [facility] clinical trial ordered Dr. Truong explained to the patient about the [place] study and Convalescent plasma in details Pt signed the consent forms to participate in the study and to received the Convalescent Plasma Received 1 unit of Convalescent plasma on 03/04/20- No complications Continue Dexamethasone 6mg IV daily for now. Today is Day 3. Will complete 10days course. May be changed to po once respiratory status improves Continue monitor BS while on dexamethasone Continue po PPI Continue high flow oxygen and keep oxygen saturation btw 88 to 92 % Compression Molding Machine Operator recommendations appreciated Got iv lasix this AM Continue prone position. Patient's oxygenation tend to be better while prone CXR this AM noted Will monitor oxygenation. If worsens, trial of NIV Inflammatory markers trending down. Continue to monitor Ferritin: 1298.9-->1555.4-->881.2 CRP: 17-->14.8-->7.03 D-dimer: 990-->550-->500 Blood cx 03/02 positive for gram negative bacilli Repeat blood cx on 03/04 showed no growth so far IV Rocephin changed to IV Zosyn Continue IV doxycycline and Zosyn for now to complete 5 day therapy AST did go up to 58 today. ALT stable Continue to monitor LFT while on Remdesivir Patient ok with NIV and mechanical vent if needed Continue Zinc, Vitamin C, Vitamin D3 and Magnesium supplements Continue Lovenox 40mg BID subq as per reclamation supervisor Dr. Marie Continue monitor closely in PCU called and updated (5) Bacteremia: Blood cx positive for Gram negative bacilli Febrile with Tmax 38.3 IV Rocephin changed to IV Zosyn and continue IV doxycycline Repeat blood cx collected on 03/04 showed no growth for now Repeat procalcitonin today negative Continue IV abx with Zosyn and Rocephin Will continue monitor closely (6) Generalized weakness: Due to acute illness Fall precaution Will do PT/OT once respiratory status stable (7) Elevated d-dimer: D-dimer 990 on admission, trending down to 550 today Case discussed with Pulmonology Dr. Vargas that recommended to change Lovenox to 40mg BID If pt will require short term anticoagulant on discharge, will consider to rivas e lovenox to eliquis Will check D-dimer in am (8) Elevated glucose: Due to Dexamethasone Hba1c 6.8 on 03/04/20 Continue insulin sliding scale Pharmacy on board for glycemic management Continue monitor BS (9) Hypertension: BP stable Continue Losartan and amlodipine Continue monitor BP closely DVT px on Lovenox subq CODE status Full code Disposition Continue monitor closely in PCU Spoke to Charlee for update Admission and Anticipated Discharge Date Admission Date: March 03, 2020 Subjective Patient seen and examined Reported that he had a good night rest yesterday Denied any chest pain Reports shortness of breath with mild exertion such as going to bathroom Still has dry raspy cough Denied any chills. Reported some nausea this AM following a bout of cough Denied any vomiting, abdominal pain. Still has some loose stool, nonbloody Denied any dysuria, frequency, urgency Had increased oxygen requirement overnight. On high flow nasal cannula. Had FiO2 upto 100% and flow rate upto 40 overnight for hypoxia. Patient is currently prone with improvement in oxygenation. Currently on FiO2 50% and flow rate of 25. No fevers. Was tachyneic this AM upto 24 but currently breathing at 16-18 Physical Exam Constitutional: + well hydrated; no acute distress On prone position. Eyes: PERRL, conjunctivae normal, anicteric sclerae ENMT: Nasal cannula in situ Respiratory: normal respiratory effort; no respiratory distress Diminished breath sounds. No obvious crackles Cardiovascular: Rate/Rhythm: regular rate and regular rhythm Heart Sounds: normal S1 and normal S2 Extremities: no edema Gastrointestinal (Abdomen): Limited abdominal exam due to prone position Musculoskeletal: no cyanosis or clubbing, extremities motor strength 5/5 Neurologic: PERRL, EOMI, accommodation nl, no face palsy, no dysarthria Psychiatric: A+Ox3, euthymic affect Results & Data Results & Data ([facility]) Vital Signs (Past 12 Hours) Vital Signs Temp Pulse Pulse Resp BP Pulse Ox 03/06/20 11:18 72 18 91 03/06/20 08:00 36.8 C 72 24 143/78 H 82 L 03/06/20 07:24 68 18 89 L 03/06/20 07:20 63 18 90 03/06/20 05:58 36.9 C 65 16 153/84 H 95 03/06/20 03:12 60 21 92 03/06/20 02:17 36.7 C 66 18 129/78 95 03/06/20 01:35 62 24 90 Laboratory Results Laboratory Results - last 24 hr 03/05/20 03/05/20 03/06/20 16:53 21:41 06:48 WBC RBC Hgb Hct MCV MCH MCHC RDW Std Deviation RDW Coeff of Vinny Plt Count MPV ESR D-Dimer Creatinine 0.90 Est Cr Clr Drug Dosing 84.9 Est GFR ( Amer) 95.1 Est GFR (Non-Af Amer) 82.1 POC Glucose 181 H 185 H Ferritin 881.2 H AST 58 H ALT 54 C-Reactive Protein 7.03 H NT-Pro-B Natriuret Pep 03/06/20 03/06/20 03/06/20 06:48 06:48 06:48 WBC 12.88 H RBC 3.94 L Hgb 11.5 L Hct 33.7 L MCV 85.5 MCH 29.2 MCHC 34.1 RDW Std Deviation 42.6 RDW Coeff of Vinny 13.6 Plt Count 296 MPV 10.8 H ESR 50 H D-Dimer 500 Creatinine Est Cr Clr Drug Dosing Est GFR ( Amer) Est GFR (Non-Af Amer) POC Glucose Ferritin AST ALT C-Reactive Protein NT-Pro-B Natriuret Pep 03/06/20 03/06/20 06:48 07:52 WBC RBC Hgb Hct MCV MCH MCHC RDW Std Deviation RDW Coeff of Vinny Plt Count MPV ESR D-Dimer Creatinine Est Cr Clr Drug Dosing Est GFR ( Amer) Est GFR (Non-Af Amer) POC Glucose 128 H Ferritin AST ALT C-Reactive Protein NT-Pro-B Natriuret Pep 261 Diagnostic Findings XR chest 1V portable CLINICAL HISTORY: f/u hypoxia COMPARISON STUDY: Chest radiograph March 02, 2020. FINDINGS: There is no pneumothorax or pleural effusion. Cardiomediastinal silhouette is stable. Bilateral airspace opacities have slightly improved. IMPRESSION: Persistent, but slightly improved, bilateral airspace opacities. Pneumonia is favored. Pulmonary edema could appear similar but is considered less likely. (1) Pneumonia Laterality: bilateral Lung location: unspecified part of lung Pneumonia type: due to unspecified organism Qualified Code(s): J18.9 - Pneumonia, unspecified organism
[2020-03-06] MEDS: MAGNESIUM OXIDE 400 MG TAB PO SCH (14:40)
[2020-03-06] MEDS: ACETAMINOPHEN 500 MG TAB PO PRN (22:35)
[2020-03-07] MEDS: PIPERACILLIN/TAZOBACTAM 3.375 GM in DEXTROSE 5% 100 ML IV SCH ×2 (02:12→10:10)
[2020-03-07] MEDS: REMDESIVIR 100mg: Days 2-5 IV SCH (05:07)
[2020-03-07] MEDS: NSS 30mL Flush, Days 1-5 IV SCH (06:17)
[2020-03-07] MEDS: ALBUTEROL HFA 8 GM INHALER INH SCH ×4 (07:33→19:29)
[2020-03-07] MEDS: IPRATROPIUM BROMIDE HFA INHALER INH SCH ×4 (07:34→19:29)
[2020-03-07 08:10] LABS: Hematocrit (blood only) 34.4 % (42-52); Hemoglobin 11.4 g/dL (14.0-18.0); Mean Corpuscular Hemoglobin 28.7 pg (25-34); Mean Corpuscular Hgb Conc 33.1 g/dL (32-36); Mean Corpuscular Volume 86.6 fL (80-100); Mean Platelet Volume 10.6 fL (7.4-10.4); Platelet Count 328 K/uL (130-400); RDW Coefficient of Variation 13.8 % (11.5-14.5); RDW Standard Deviation 44.1 fL (36.4-46.3); Red Blood Count 3.97 M/uL (4.7-6.1); White Blood Count 12.11 K/uL (4.8-10.8)
[2020-03-07 08:38] LABS: Albumin Level 2.2 gm/dl (3.4-5.0); BUN Creatinine Ratio 24.5 (10-20); Calcium 8.5 mg/dl (8.5-10.1); Est GFR (African American) 93.9; Potassium 3.7 mmol/L (3.5-5.1)
[2020-03-07 08:40] LABS: Albumin Globulin Ratio 0.6 (0.9-2); Bilirubin,Total 0.6 mg/dl (0.2-1); Total Protein 6.2 gm/dl (6.4-8.2)
[2020-03-07] MEDS: MAGNESIUM OXIDE 400 MG TAB PO SCH (09:00)
[2020-03-07] MEDS: ASCORBIC ACID 500 MG TAB PO SCH ×2 (09:09→21:21)
[2020-03-07] MEDS: CYANOCOBALAMIN 500 MCG TABLET (VITAMIN B-12) PO SCH (09:09)
[2020-03-07] MEDS: ENOXAPARIN INJ 40 MG/0.4 ML SYR SQ SCH ×2 (09:09→21:40)
[2020-03-07] MEDS: INSULIN GLARGINE SOLOSTAR 100 UNITS/ML 3 ML PEN SC SCH (09:09)
[2020-03-07] MEDS: DEXAMETHASONE SOD PHOSPHATE 6 MG in SYRINGE 0 ML IV SCH (09:09)
[2020-03-07] MEDS: INSULIN ASPART 100 UNITS/ML 3 ML PEN SC SCH ×4 (09:10→21:40)
[2020-03-07] MEDS: ZINC SULFATE 220 MG CAPSULE PO SCH (09:10)
[2020-03-07] MEDS: guaiFENesin 600 MG TABCR PO SCH ×2 (09:10→21:20)
[2020-03-07] MEDS: LOSARTAN POTASSIUM 50 MG TAB PO SCH (09:10)
[2020-03-07] MEDS: SERTRALINE HCL 50 MG TABLET PO SCH (09:10)
[2020-03-07] MEDS: DOXYCYCLINE HYCLATE 100 MG CAP PO SCH ×2 (09:10→21:21)
[2020-03-07] MEDS: ATORVASTATIN 10 MG TAB PO SCH (09:10)
[2020-03-07] MEDS: PANTOprazole 40 MG TAB PO SCH (09:10)
[2020-03-07] MEDS: AMLODIPINE BESYLATE 5 MG TAB PO SCH (09:11)
[2020-03-07] MEDS: CHOLECALCIFEROL 1,000 UNITS 25 MCG TAB PO SCH (09:11)
--- NOTE | 2020-03-07 11:43 | Pulmonology Progress Note ---
Date of Service March 07, 2020 Assessment & Plan (1) Acute hypoxemic respiratory failure: Impression: 79-year-old male with COVID-19 viral pneumonia admitted with progressive hypoxemic respiratory failure. Covid-19 was done as an outpatient approximately a week ago. The actual test result is not available in our system but it was reported to the ER staff and admitting hospitalist. --Acute hypoxic respiratory failure Secondary to multilobar pneumonia in the Covid-19 positive patient Continue with high flow to maintain saturation 88 to 92%. Awake proning if there is desaturation even on high flow. Continue with Remdesivir for total of 5 days and later decide whether the patient will benefit from another 5 days of dosing. Continue with dexamethasone 6 mg daily for total of 10 days. Recommend PPI Continue with zinc Orders for convalescent plasma has been ordered as per the [facility] trial. Patient CRP is trending down 17-->14.8-->7. CPK and creatinine within normal limit. Ferritin trending down. ESR staying around 50 Procalcitonin has been negative. Repeat procalcitonin 03/05/2020 0.19, would continue with antibiotics for total of 5 days. Plan: Chest x-ray from 03/06/2020 compared to the time of presentation 03/02/2028 showed improvement in the infiltrates. There is still persistent infiltrates appreciated. Patient's oxygen demand is usually higher in the morning but gradually improves during the end of the day. During awake pronating his oxygen saturation improved significantly. Encourage to continue with awakening. Today with a 4-day of Remdesivir. Given that the infiltrates are improving and the patient's inflammatory markers are trending down I do not think there will be a need to prolong the treatment beyond 5 days. Repeat CRP, ESR, ferritin and d-dimer tomorrow. Continue with high flow. I would recommend not going down on flow less than 35% titrate down FiO2 to 88 to 92% saturation. Give 1 that the repeat blood culture was negative since 03/04/2020 we can de- escalate the antibiotic Zosyn to back Rocephin. Case was discussed with (2) COVID-19: Admission and Anticipated Discharge Date Admission Date: March 03, 2020 Subjective Patient was seen from the glass door. Patient is laying comfortably in bed on high flow. Respiratory rate is mid harshil ns. Not in acute distress. Review of Systems Review of Systems: Not obtained Physical Exam Physical Exam: Deferred due to covid 19 restrictions. Please refer to exam from primary service today. Results & Data Results & Data ([facility]) Vital Signs (Past 12 Hours) Vital Signs Temp Pulse Pulse Resp BP BP Pulse Ox 03/07/20 11:34 72 16 92 03/07/20 11:33 72 16 92 03/07/20 07:37 64 18 88 L 03/07/20 07:36 64 18 88 L 03/07/20 04:43 36.6 C 70 20 154/82 H 90 03/07/20 03:17 57 L 22 97 03/07/20 00:20 60 20 99 03/06/20 23:53 36.7 C 63 24 97/54 L 98 03/07/20 07:15 03/07/20 07:15 PG Care Time/CCT Total # of Minutes Spent Total Time Spent with Patient: Total time spent is greater than 50% in coordination of care (as documented) at patient's floor/unit and/or counseling patient: Coding Level of Care Code 89963 Subseq Hosp Care Lvl 2 Diagnoses Acute hypoxemic respiratory failure J96.01 COVID-19 U07.1
--- NOTE | 2020-03-07 14:37 | Pharmacy Report ---
Pharmacy Glycemic Short Note 2 - Date of Service March 07, 2020 - Glycemic Short BSG Results (Last 24 hours): 03/06/20 03/06/20 03/07/20 16:42 21:02 07:15 Glucose 138 H POC Glucose 222 H 163 H 03/07/20 03/07/20 09:00 11:59 Glucose POC Glucose 133 H 140 H OUTPATIENT ANTIDIABETIC REGIMEN: * N/A * A1c 6.8% 03/04/2020 ASSESSMENT: * Mr. Collier remains on dexamethasone 6 mg IV daily, BSG ranged from 128-222 mg/dL * Utilized 28 units of insulin yesterday: 10 units of basal, 18 correctional/prandial * Fasting BSG this AM 133; continue current basal dosing * Carb ratio tightened this morning, lunch BSG 140 mg/dL today, will continue with current novolog parameters PLAN FOR INPATIENT GLYCEMIC CONTROL: * Hold outpatient oral diabetes medications * Basal insulin * Lantus 10/12 units per scale * Bolus insulin * NovoLog per scale ACHS or Q6hrs while NPO * Goal Range: Low 110 mg/dL - High 140 mg/dL * Correction Factor: 20 mg/dL/unit * Nutritional / Prandial insulin per carb ratio of 1 unit per 7 grams CHO consumed PLAN FOR DISCHARGE: * Patient's A1c 6.8% indicates diabetes, uncertain if patient has had formal diagnosis, however, this A1c is within goal range for patient * Patient likely will not need medication at discharge and can f/u with primary care doctor to discuss lifestyle modifications
--- NOTE | 2020-03-07 15:27 | Hospitalist Progress Note ---
Date of Service March 07, 2020 Assessment & Plan (1) Acute hypoxemic respiratory failure: (2) COVID-19: (3) Pneumonia: (4) Hypoxia: He and his recently tested positive for COVID-19 outpatient Presented on admission with worsening SOB, fever, cough associated with diarrhea CXR showed mixed interstitial and alveolar opacities within the mid and lower lung zones are compatible with multifocal pneumonia Currently on high flow oxygen since oxygen saturation dropped below 80% on 10L [place] High risk of progression to life threatening illness Pulmonology on board Continue Remdesivir. Today is Day 4 of Remdesivir therapy. Would complete the 5 day course. Convalescent plasma through the [facility] clinical trial ordered Dr. Truong explained to the patient about the [place] study and Convalescent plasma in details Pt signed the consent forms to participate in the study and to received the Convalescent Plasma Received 1 unit of Convalescent plasma on 03/04/20- No complications Continue Dexamethasone 6mg IV daily for now. Today is Day 4. Will complete 10days course. May be changed to po once respiratory status improves Continue monitor BS while on dexamethasone Continue po PPI Continue high flow oxygen and keep oxygen saturation btw 88 to 92 % Staff Weapons Officer recommendations appreciated Continue awake prone position. CXR from yesterday show some improvement Will monitor oxygenation. If worsens, trial of NIV Inflammatory markers trending down. Continue to monitor Ferritin: 1298.9-->1555.4-->881.2 CRP: 17-->14.8-->7.03 D-dimer: 990-->550-->500 Recheck tomorrow Blood cx 03/02 positive for gram negative bacilli Repeat blood cx on 03/04 showed no growth so far IV Rocephin changed to IV Zosyn Continue IV doxycycline and Zosyn for now to complete 5 day therapy AST did go up to 58 yesterday, down to 42 today ALT stable Continue to monitor LFT while on Remdesivir Patient ok with NIV and mechanical vent if needed Continue Zinc, Vitamin C, Vitamin D3 and Magnesium supplements Continue Lovenox 40mg BID subq as per racket stringer Dr. Marie Continue monitor closely in PCU Patient pulmonary status appears to have remained same over the past 24h. Inflammatory markers appear to be improving (5) Bacteremia: Blood cx positive for Gram negative bacilli Febrile with Tmax 38.3 IV Rocephin was initially changed to IV Zosyn and continue IV doxycycline Repeat blood cx collected on 03/04 showed no growth for now Repeat procalcitonin negative Antibiotic switched back to rocephine to complete therapy Will continue monitor closely (6) Generalized weakness: Due to acute illness Fall precaution Will do PT/OT once respiratory status stable (7) Elevated d-dimer: D-dimer 990 on admission, trending down to 550 today Per Admitting provider, case discussed with Pulmonology Dr. Vargas that recommended to change Lovenox to 40mg BID If pt will require short term anticoagulant on discharge, will consider to change lovenox to eliquis (8) Elevated glucose: Due to Dexamethasone Hba1c 6.8 on 03/04/20 Continue insulin sliding scale Pharmacy on board for glycemic management Continue monitor BS (9) Hypertension: BP stable Continue Losartan and amlodipine Continue monitor BP closely DVT px on Lovenox subq CODE status Full code Disposition Continue monitor closely in PCU Admission and Anticipated Discharge Date Admission Date: March 03, 2020 Subjective Patient laying comfortably in awake prone position Denied any new complaints today Still reports some SOB with walking, dry cough Denied any chest pain, SOB at rest Physical Exam Constitutional: + well hydrated; no acute distress Eyes: PERRL, conjunctivae normal, anicteric sclerae Respiratory: normal respiratory effort; no respiratory distress On high flow nasal cannula. Reduced breath sounds. No rales Cardiovascular: Rate/Rhythm: regular rate and regular rhythm Heart Sounds: normal S1 and normal S2 Extremities: no edema Gastrointestinal (Abdomen): Limited Musculoskeletal: no cyanosis or clubbing, extremities motor strength 5/5 Neurologic: PERRL, EOMI, accommodation nl, no face palsy, no dysarthria Psychiatric: A+Ox3, euthymic affect Results & Data Results & Data ([facility]) Vital Signs (Past 12 Hours) Vital Signs Temp Pulse Resp BP Pulse Ox 03/07/20 12:00 37.2 C 77 22 151/77 H 90 03/07/20 11:34 72 16 92 03/07/20 11:33 72 16 92 03/07/20 07:37 64 18 88 L 03/07/20 07:36 64 18 88 L 03/07/20 04:43 36.6 C 70 20 154/82 H 90 Laboratory Results Laboratory Results - last 24 hr 03/06/20 03/06/20 03/07/20 16:42 21:02 07:15 WBC RBC Hgb Hct MCV MCH MCHC RDW Std Deviation RDW Coeff of Vinny Plt Count MPV Sodium 139 Potassium 3.7 Chloride 106 Carbon Dioxide 28 Anion Gap 5.0 BUN 22 H Creatinine 0.91 Est Cr Clr Drug Dosing 84.0 Est GFR ( Amer) 93.9 Est GFR (Non-Af Amer) 81.0 BUN/Creatinine Ratio 24.5 H Glucose 138 H POC Glucose 222 H 163 H Calcium 8.5 Total Bilirubin 0.6 AST 42 H ALT 60 Alkaline Phosphatase 51 Total Protein 6.2 L Albumin 2.2 L Globulin 4.0 Albumin/Globulin Ratio 0.6 L 03/07/20 03/07/20 03/07/20 07:15 09:00 11:59 WBC 12.11 H RBC 3.97 L Hgb 11.4 L Hct 34.4 L MCV 86.6 MCH 28.7 MCHC 33.1 RDW Std Deviation 44.1 RDW Coeff of Vinny 13.8 Plt Count 328 MPV 10.6 H Sodium Potassium Chloride Carbon Dioxide Anion Gap BUN Creatinine Est Cr Clr Drug Dosing Est GFR ( Amer) Est GFR (Non-Af Amer) BUN/Creatinine Ratio Glucose POC Glucose 133 H 140 H Calcium Total Bilirubin AST ALT Alkaline Phosphatase Total Protein Albumin Globulin Albumin/Globulin Ratio (1) Pneumonia Laterality: bilateral Lung location: unspecified part of lung Pneumonia type: due to unspecified organism Qualified Code(s): J18.9 - Pneumonia, unspecified organism
[2020-03-07] MEDS: cefTRIAXone SODIUM 2,000 MG in DEXTROSE 5% 50 ML IV SCH (21:56)
[2020-03-08] MEDS: ALBUTEROL HFA 8 GM INHALER INH SCH ×4 (07:08→19:39)
[2020-03-08] MEDS: IPRATROPIUM BROMIDE HFA INHALER INH SCH ×4 (07:08→19:39)
[2020-03-08 08:01] LABS: Hematocrit (blood only) 34.8 % (42-52); Hemoglobin 11.8 g/dL (14.0-18.0); Mean Corpuscular Hemoglobin 28.8 pg (25-34); Mean Corpuscular Hgb Conc 33.9 g/dL (32-36); Mean Corpuscular Volume 84.9 fL (80-100); Mean Platelet Volume 10.2 fL (7.4-10.4); Platelet Count 350 K/uL (130-400); RDW Coefficient of Variation 13.7 % (11.5-14.5); RDW Standard Deviation 42.6 fL (36.4-46.3); White Blood Count 14.99 K/uL (4.8-10.8)
[2020-03-08] MEDS: ENOXAPARIN INJ 40 MG/0.4 ML SYR SQ SCH ×2 (08:10→20:31)
[2020-03-08] MEDS: DEXAMETHASONE SOD PHOSPHATE 6 MG in SYRINGE 0 ML IV SCH (08:10)
[2020-03-08] MEDS: INSULIN ASPART 100 UNITS/ML 3 ML PEN SC SCH ×4 (08:10→22:59)
[2020-03-08] MEDS: AMLODIPINE BESYLATE 5 MG TAB PO SCH (08:11)
[2020-03-08] MEDS: MAGNESIUM OXIDE 400 MG TAB PO SCH (08:11)
[2020-03-08] MEDS: SERTRALINE HCL 50 MG TABLET PO SCH (08:11)
[2020-03-08] MEDS: ASCORBIC ACID 500 MG TAB PO SCH ×2 (08:11→20:32)
[2020-03-08] MEDS: PANTOprazole 40 MG TAB PO SCH (08:11)
[2020-03-08] MEDS: DOXYCYCLINE HYCLATE 100 MG CAP PO SCH ×2 (08:11→20:31)
[2020-03-08] MEDS: CHOLECALCIFEROL 1,000 UNITS 25 MCG TAB PO SCH (08:12)
[2020-03-08] MEDS: ZINC SULFATE 220 MG CAPSULE PO SCH (08:12)
[2020-03-08] MEDS: CYANOCOBALAMIN 500 MCG TABLET (VITAMIN B-12) PO SCH (08:12)
[2020-03-08] MEDS: ATORVASTATIN 10 MG TAB PO SCH (08:12)
[2020-03-08] MEDS: guaiFENesin 600 MG TABCR PO SCH ×2 (08:12→20:32)
[2020-03-08] MEDS: LOSARTAN POTASSIUM 50 MG TAB PO SCH (08:12)
[2020-03-08 08:19] LABS: D Dimer 740 ug/L FEU (0-500)
[2020-03-08 08:21] LABS: Albumin Level 2.3 gm/dl (3.4-5.0); BUN Creatinine Ratio 28.3 (10-20); C Reactive Protein 6.69 mg/dl (0-0.29); Calcium 8.5 mg/dl (8.5-10.1); Creatinine Clr Calc Pharmacy 99.5 ml/min; Potassium 3.8 mmol/L (3.5-5.1)
[2020-03-08 08:25] LABS: Albumin Globulin Ratio 0.6 (0.9-2); Bilirubin,Total 0.6 mg/dl (0.2-1); Ferritin 748.5 ng/ml (8-388); Globulin 4.1 gm/dl (2.5-4.0); Total Protein 6.4 gm/dl (6.4-8.2)
[2020-03-08] MEDS: INSULIN GLARGINE SOLOSTAR 100 UNITS/ML 3 ML PEN SC SCH (08:51)
--- NOTE | 2020-03-08 10:39 | Pulmonology Progress Note ---
Date of Service March 08, 2020 Assessment & Plan (1) Acute hypoxemic respiratory failure: Impression: 79-year-old male with COVID-19 viral pneumonia admitted with progressive hypoxemic respiratory failure. Covid-19 was done as an outpatient approximately a week ago. The actual test result is not available in our system but it was reported to the ER staff and admitting hospitalist. --Acute hypoxic respiratory failure Secondary to multilobar pneumonia in the Covid-19 positive patient Continue with high flow to maintain saturation 88 to 92%. Awake proning if there is desaturation even on high flow. Continue with Remdesivir for total of 5 days and later decide whether the patient will benefit from another 5 days of dosing. Continue with dexamethasone 6 mg daily for total of 10 days. Recommend PPI Continue with zinc Patient got 1 dose of convalescent plasma on 03/04/2020 with no complications. Patient CRP is trending down 17-->14.8-->7-->6.69. CPK and creatinine within normal limit. ESR 49-->52-->50-->52. Ferritin trending down. Procalcitonin has been negative. Repeat procalcitonin 03/05/2020 0.19, would continue with antibiotics for total of 5 days. Plan: Patient still requiring 85% FiO2 to maintain saturation. Highly recommend awake proning. Continue with incentive spirometry Today will be the day 5 of remdesivir. Given the improvement in the chest x-ray and decreasing inflammatory markers I do not think there is a need to prolong the course of remdesivir. LFTs are stable. Case discussed with nurse. (2) COVID-19: Admission and Anticipated Discharge Date Admission Date: March 03, 2020 Subjective Patient seen from the glass window of the door. Not in acute distress. Saturating 92% on 85% FiO2 and 40 L high flow. Respiratory rate in high teens. As per the nurse patient does walk around in the room. And uses incentive spirometry. Review of Systems Review of Systems: Not obtained Physical Exam Physical Exam: Deferred due to covid 19 restrictions. Please refer to exam from primary service today. Results & Data Results & Data ([facility]) Vital Signs (Past 12 Hours) Vital Signs Temp Pulse Pulse Resp BP Pulse Ox 03/08/20 08:00 36.6 C 66 76 14 146/62 H 91 03/08/20 07:13 71 24 93 03/08/20 07:08 67 24 93 03/08/20 06:45 36.8 C 66 22 155/85 H 92 03/08/20 03:44 64 20 92 03/08/20 01:40 36.7 C 72 22 145/78 H 95 03/08/20 01:27 61 20 88 L 03/07/20 23:34 63 28 H 93 03/08/20 07:38 03/08/20 07:38 PG Care Time/CCT Total # of Minutes Spent Total Time Spent with Patient: Total time spent is greater than 50% in coordination of care (as documented) at patient's floor/unit and/or counseling patient: Coding Level of Care Code 63546 Subseq Hosp Care Lvl 2 Diagnoses Acute hypoxemic respiratory failure J96.01 COVID-19 U07.1
--- NOTE | 2020-03-08 13:12 | Hospitalist Progress Note ---
Date of Service March 08, 2020 Assessment & Plan (1) Acute hypoxemic respiratory failure: (2) COVID-19: (3) Pneumonia: (4) Hypoxia: He and his recently tested positive for COVID-19 outpatient Presented on admission with worsening SOB, fever, cough associated with diarrhea CXR showed mixed interstitial and alveolar opacities within the mid and lower lung zones are compatible with multifocal pneumonia Currently on high flow oxygen since oxygen saturation dropped below 80% on 10L [place] High risk of progression to life threatening illness Pulmonology on board Complete day 5 of Remdesivir therapy today. With inflammatory markers improving, will do 5 day Convalescent plasma through the [facility] clinical trial ordered Dr. Truong explained to the patient about the [place] study and Convalescent plasma in details Pt signed the consent forms to participate in the study and to received the Convalescent Plasma Received 1 unit of Convalescent plasma on 03/04/20- No complications Continue Dexamethasone 6mg IV daily for now. Today is Day 5. Will complete 10days course. May be changed to po once respiratory status improves Continue monitor BS while on dexamethasone Continue po PPI Continue high flow oxygen and keep oxygen saturation btw 88 to 92 % Lamination Assembler recommendations appreciated Continue awake prone position. Continue to monitor oxygenation. If worsens, trial of NIV Inflammatory markers generally trending down. Continue to monitor Ferritin: 1298.9-->1555.4-->881.2-->748 CRP: 17-->14.8-->7.03-->6.69 D-dimer: 990-->550-->500-->740 ESR: 49-->52-->50-->52 Blood cx 03/02 positive for gram negative bacilli Repeat blood cx on 03/04 showed no growth so far IV Rocephin changed to IV Zosyn Continue IV doxycycline and Zosyn for now to complete 5 day therapy Continue to monitor LFT while on Remdesivir Patient ok with NIV and mechanical vent if needed Continue Zinc, Vitamin C, Vitamin D3 and Magnesium supplements Continue Lovenox 40mg BID subq as per microfilm duplicating unit supervisor Dr. Marie Continue monitor closely in PCU Patient pulmonary status remains stable but still has increased oxygen requirement. Inflammatory markers appear to be improving (5) Bacteremia: Blood cx positive for Gram negative bacilli Febrile with Tmax 38.3 IV Rocephin was initially changed to IV Zosyn and continue IV doxycycline Repeat blood cx collected on 03/04 showed no growth for now Repeat procalcitonin negative Will continue monitor closely (6) Generalized weakness: Due to acute illness Fall precaution Will do PT/OT once respiratory status stable (7) Elevated d-dimer: D-dimer 990 on admission Per Admitting provider, case discussed with Pulmonology Dr. Vargas that recommended to change Lovenox to 40mg BID If pt will require short term anticoagulant on discharge, will consider to change lovenox to eliquis (8) Elevated glucose: Due to Dexamethasone Hba1c 6.8 on 03/04/20 Continue insulin sliding scale Pharmacy on board for glycemic management Continue monitor BS (9) Hypertension: BP stable Continue Losartan and amlodipine Continue monitor BP closely DVT px on Lovenox subq CODE status Full code Disposition Continue monitor closely in PCU Admission and Anticipated Discharge Date Admission Date: March 03, 2020 Subjective Patient seen and examined. Laying comfortably supine Reports cough and shortness of breath are mildly improved today compared to yesterday Denied any chest pain Still has loose stools. He reported about 2BM yesterday. Nonbloody, loose. Physical Exam Constitutional: + well hydrated; no acute distress Eyes: PERRL, conjunctivae normal, anicteric sclerae Respiratory: normal respiratory effort; no respiratory distress Still on high flow nasal oxygen. No crackles noted Cardiovascular: Rate/Rhythm: regular rate and regular rhythm Heart Sounds: normal S1 and normal S2 Extremities: no edema Gastrointestinal (Abdomen): normal bowel sounds, soft, nontender, no hepatosplenomegaly Musculoskeletal: no cyanosis or clubbing, extremities motor strength 5/5 Neurologic: PERRL, EOMI, accommodation nl, no face palsy, no dysarthria Psychiatric: A+Ox3, euthymic affect Results & Data Results & Data ([facility]) Vital Signs (Past 12 Hours) Vital Signs Temp Pulse Pulse Resp BP Pulse Ox 03/08/20 11:28 67 20 96 03/08/20 11:25 67 20 96 03/08/20 10:50 36.5 C 72 20 128/67 90 03/08/20 08:00 36.6 C 66 76 14 146/62 H 91 03/08/20 07:13 71 24 93 03/08/20 07:08 67 24 93 03/08/20 06:45 36.8 C 66 22 155/85 H 92 03/08/20 03:44 64 20 92 03/08/20 01:40 36.7 C 72 22 145/78 H 95 03/08/20 01:27 61 20 88 L Laboratory Results Laboratory Results - last 24 hr 03/07/20 03/07/20 03/08/20 16:48 20:45 07:38 WBC RBC Hgb Hct MCV MCH MCHC RDW Std Deviation RDW Coeff of Vinny Plt Count MPV ESR 52 H D-Dimer Sodium Potassium Chloride Carbon Dioxide Anion Gap BUN Creatinine Est Cr Clr Drug Dosing Est GFR ( Amer) Est GFR (Non-Af Amer) BUN/Creatinine Ratio Glucose POC Glucose 171 H 164 H Calcium Ferritin Total Bilirubin AST ALT Alkaline Phosphatase C-Reactive Protein Total Protein Albumin Globulin Albumin/Globulin Ratio 03/08/20 03/08/20 03/08/20 07:38 07:38 07:38 WBC 14.99 H RBC 4.10 L Hgb 11.8 L Hct 34.8 L MCV 84.9 MCH 28.8 MCHC 33.9 RDW Std Deviation 42.6 RDW Coeff of Vinny 13.7 Plt Count 350 MPV 10.2 ESR D-Dimer 740 H* Sodium 139 Potassium 3.8 Chloride 107 Carbon Dioxide 26 Anion Gap 6.0 BUN 22 H Creatinine 0.76 Est Cr Clr Drug Dosing 99.5 Est GFR ( Amer) 102.0 Est GFR (Non-Af Amer) 88.0 BUN/Creatinine Ratio 28.3 H Glucose 101 H POC Glucose Calcium 8.5 Ferritin 748.5 H Total Bilirubin 0.6 AST 29 ALT 56 Alkaline Phosphatase 50 C-Reactive Protein 6.69 H Total Protein 6.4 Albumin 2.3 L Globulin 4.1 H Albumin/Globulin Ratio 0.6 L 03/08/20 03/08/20 08:08 11:47 WBC RBC Hgb Hct MCV MCH MCHC RDW Std Deviation RDW Coeff of Vinny Plt Count MPV ESR D-Dimer Sodium Potassium Chloride Carbon Dioxide Anion Gap BUN Creatinine Est Cr Clr Drug Dosing Est GFR ( Amer) Est GFR (Non-Af Amer) BUN/Creatinine Ratio Glucose POC Glucose 103 H 168 H Calcium Ferritin Total Bilirubin AST ALT Alkaline Phosphatase C-Reactive Protein Total Protein Albumin Globulin Albumin/Globulin Ratio (1) Pneumonia Laterality: bilateral Lung location: unspecified part of lung Pneumonia type: due to unspecified organism Qualified Code(s): J18.9 - Pneumonia, unspecified organism
[2020-03-08] MEDS: cefTRIAXone SODIUM 2,000 MG in DEXTROSE 5% 50 ML IV SCH (18:42)
[2020-03-09 06:23] LABS: Hematocrit (blood only) 33.7 % (42-52); Hemoglobin 11.3 g/dL (14.0-18.0); Mean Corpuscular Hemoglobin 29.1 pg (25-34); Mean Corpuscular Hgb Conc 33.5 g/dL (32-36); Mean Corpuscular Volume 86.9 fL (80-100); Mean Platelet Volume 10.2 fL (7.4-10.4); Platelet Count 393 K/uL (130-400); RDW Coefficient of Variation 13.9 % (11.5-14.5); RDW Standard Deviation 44.1 fL (36.4-46.3); Red Blood Count 3.88 M/uL (4.7-6.1)
[2020-03-09 06:59] LABS: Albumin Level 2.1 gm/dl (3.4-5.0); BUN Creatinine Ratio 27.6 (10-20); Calcium 8.4 mg/dl (8.5-10.1); Est GFR (African American) 99.4; Est GFR (Non-African American) 85.7
[2020-03-09 07:02] LABS: Albumin Globulin Ratio 0.5 (0.9-2); Bilirubin,Total 0.5 mg/dl (0.2-1); Globulin 4.1 gm/dl (2.5-4.0); Total Protein 6.2 gm/dl (6.4-8.2)
[2020-03-09] MEDS: IPRATROPIUM BROMIDE HFA INHALER INH SCH ×4 (07:40→19:42)
[2020-03-09] MEDS: ALBUTEROL HFA 8 GM INHALER INH SCH ×4 (07:40→19:42)
[2020-03-09] MEDS: PANTOprazole 40 MG TAB PO SCH (09:09)
[2020-03-09] MEDS: AMLODIPINE BESYLATE 5 MG TAB PO SCH (09:09)
[2020-03-09] MEDS: LOSARTAN POTASSIUM 50 MG TAB PO SCH (09:09)
[2020-03-09] MEDS: ATORVASTATIN 10 MG TAB PO SCH (09:09)
[2020-03-09] MEDS: CYANOCOBALAMIN 500 MCG TABLET (VITAMIN B-12) PO SCH (09:09)
[2020-03-09] MEDS: ASCORBIC ACID 500 MG TAB PO SCH ×2 (09:09→21:04)
[2020-03-09] MEDS: MAGNESIUM OXIDE 400 MG TAB PO SCH (09:09)
[2020-03-09] MEDS: ZINC SULFATE 220 MG CAPSULE PO SCH (09:09)
[2020-03-09] MEDS: DOXYCYCLINE HYCLATE 100 MG CAP PO SCH (09:09)
[2020-03-09] MEDS: ENOXAPARIN INJ 40 MG/0.4 ML SYR SQ SCH ×2 (09:10→21:03)
[2020-03-09] MEDS: CHOLECALCIFEROL 1,000 UNITS 25 MCG TAB PO SCH (09:10)
[2020-03-09] MEDS: DEXAMETHASONE SOD PHOSPHATE 6 MG in SYRINGE 0 ML IV SCH (09:10)
[2020-03-09] MEDS: guaiFENesin 600 MG TABCR PO SCH ×2 (09:10→21:03)
[2020-03-09] MEDS: SERTRALINE HCL 50 MG TABLET PO SCH (09:11)
[2020-03-09] MEDS: INSULIN ASPART 100 UNITS/ML 3 ML PEN SC SCH ×4 (09:53→22:59)
[2020-03-09] MEDS: INSULIN GLARGINE SOLOSTAR 100 UNITS/ML 3 ML PEN SC SCH (09:54)
--- NOTE | 2020-03-09 12:29 | Hospitalist Progress Note ---
Date of Service March 09, 2020 Assessment & Plan (1) Acute hypoxemic respiratory failure: (2) COVID-19: (3) Pneumonia: (4) Hypoxia: He and his recently tested positive for COVID-19 outpatient Presented on admission with worsening SOB, fever, cough associated with diarrhea CXR showed mixed interstitial and alveolar opacities within the mid and lower lung zones are compatible with multifocal pneumonia Currently on high flow oxygen since oxygen saturation dropped below 80% on 10L [place] High risk of progression to life threatening illness Pulmonology on board Completed 5 days of Remdesivir therapy on 03/08/20 Convalescent plasma through the [facility] clinical trial ordered Dr. Truong explained to the patient about the [place] study and Convalescent plasma in details Pt signed the consent forms to participate in the study and to received the Conv alescent Plasma Received 1 unit of Convalescent plasma on 03/04/20- No complications Continue Dexamethasone 6mg IV daily for now. Today is Day 6. Will complete 10days course. May be changed to po once respiratory status improves Continue monitor BS while on dexamethasone Continue po PPI Continue high flow oxygen and keep oxygen saturation btw 88 to 92 % Developer Prover Upholstering recommendations appreciated Continue awake prone position as much as possible Continue to monitor oxygenation. If worsens, trial of NIV Inflammatory markers generally trending down. Continue to monitor Ferritin: 1298.9-->1555.4-->881.2-->748 CRP: 17-->14.8-->7.03-->6.69 D-dimer: 990-->550-->500-->740 ESR: 49-->52-->50-->52 Blood cx 03/02 positive for gram negative bacilli Repeat blood cx on 03/04 showed no growth so far IV Rocephin changed to IV Zosyn Continue IV doxycycline and Zosyn for now to complete 5 day therapy Continue to monitor LFT while on Remdesivir Patient ok with NIV and mechanical vent if needed Continue Zinc, Vitamin C, Vitamin D3 and Magnesium supplements Continue Lovenox 40mg BID subq as per proced tech Dr. Marie Continue monitor closely in PCU (5) Bacteremia: Blood cx positive for Gram negative bacilli Was febrile with Tmax 38.3 Repeat blood cx collected on 03/04 showed no growth for now Repeat procalcitonin negative Completed antibiotic therapy (6) Generalized weakness: Due to acute illness Fall precaution Will do PT/OT once respiratory status stable (7) Elevated d-dimer: D-dimer 990 on admission Per Admitting provider, case discussed with Pulmonology Dr. Vargas that recommended to change Lovenox to 40mg BID If pt will require short term anticoagulant on discharge, will consider to change lovenox to eliquis (8) Elevated glucose: Due to Dexamethasone Hba1c 6.8 on 03/04/20 Continue insulin sliding scale Pharmacy on board for glycemic management Continue monitor BS (9) Hypertension: BP stable Continue Losartan and amlodipine Continue monitor BP closely DVT px on Lovenox subq CODE status Full code Disposition Continue monitor closely in PCU Admission and Anticipated Discharge Date Admission Date: March 03, 2020 Subjective Patient seen and examined Reports cough is much improved. SOB is improving Diarrhea is resolving Reports some back pain and mild abd discomfort which he attributed to the awake proning Still requiring high flow oxygen Physical Exam Constitutional: + well hydrated; no acute distress Eyes: PERRL, conjunctivae normal, anicteric sclerae Respiratory: normal respiratory effort; no respiratory distress On high flow nasal oxygen, improved air entry bilaterally, no crackles Cardiovascular: Rate/Rhythm: regular rate and regular rhythm Heart Sounds: normal S1 and normal S2 Extremities: no edema Gastrointestinal (Abdomen): normal bowel sounds, soft, nontender, no hepatosplenomegaly Musculoskeletal: no cyanosis or clubbing, extremities motor strength 5/5 Neurologic: PERRL, EOMI, accommodation nl, no face palsy, no dysarthria Psychiatric: A+Ox3, euthymic affect Results & Data Results & Data ([facility]) Vital Signs (Past 12 Hours) Vital Signs Temp Pulse Pulse Pulse Resp BP BP 03/09/20 08:00 36.5 C 71 81 22 124/64 03/09/20 07:40 90 16 03/09/20 04:16 36.9 C 03/09/20 04:15 80 03/09/20 04:14 72 125/63 03/09/20 04:00 65 03/09/20 03:45 66 03/09/20 03:30 65 03/09/20 03:15 65 03/09/20 03:00 65 03/09/20 02:51 64 16 03/09/20 02:45 67 03/09/20 02:30 71 03/09/20 02:15 74 03/09/20 02:00 68 03/09/20 01:45 66 03/09/20 01:40 65 03/09/20 01:30 65 03/09/20 01:15 63 03/09/20 01:00 64 03/09/20 00:45 64 03/09/20 00:30 65 Pulse Ox 03/09/20 08:00 91 03/09/20 07:40 89 L 03/09/20 04:16 03/09/20 04:15 85 L 03/09/20 04:14 88 L 03/09/20 04:00 96 03/09/20 03:45 96 03/09/20 03:30 95 03/09/20 03:15 94 03/09/20 03:00 93 03/09/20 02:51 92 03/09/20 02:45 91 03/09/20 02:30 89 L 03/09/20 02:15 86 L 03/09/20 02:00 94 03/09/20 01:45 94 03/09/20 01:40 03/09/20 01:30 94 03/09/20 01:15 95 03/09/20 01:00 94 03/09/20 00:45 94 03/09/20 00:30 94 Laboratory Results Laboratory Results - last 24 hr 03/08/20 03/08/20 03/08/20 16:19 16:43 20:36 WBC RBC Hgb Hct MCV MCH MCHC RDW Std Deviation RDW Coeff of Vinny Plt Count MPV Sodium Potassium Chloride Carbon Dioxide Anion Gap BUN Creatinine Est Cr Clr Drug Dosing Est GFR ( Amer) Est GFR (Non-Af Amer) BUN/Creatinine Ratio Glucose POC Glucose 161 H 186 H 184 H Calcium Total Bilirubin AST ALT Alkaline Phosphatase Total Protein Albumin Globulin Albumin/Globulin Ratio 03/09/20 03/09/20 03/09/20 05:45 05:45 09:00 WBC 14.60 H RBC 3.88 L Hgb 11.3 L Hct 33.7 L MCV 86.9 MCH 29.1 MCHC 33.5 RDW Std Deviation 44.1 RDW Coeff of Vinny 13.9 Plt Count 393 MPV 10.2 Sodium 142 Potassium 4.0 Chloride 110 H Carbon Dioxide 26 Anion Gap 6.0 BUN 22 H Creatinine 0.81 Est Cr Clr Drug Dosing 94.0 Est GFR ( Amer) 99.4 Est GFR (Non-Af Amer) 85.7 BUN/Creatinine Ratio 27.6 H Glucose 120 H POC Glucose 167 H Calcium 8.4 L Total Bilirubin 0.5 AST 18 ALT 45 Alkaline Phosphatase 48 Total Protein 6.2 L Albumin 2.1 L Globulin 4.1 H Albumin/Globulin Ratio 0.5 L 03/09/20 12:59 WBC RBC Hgb Hct MCV MCH MCHC RDW Std Deviation RDW Coeff of Vinny Plt Count MPV Sodium Potassium Chloride Carbon Dioxide Anion Gap BUN Creatinine Est Cr Clr Drug Dosing Est GFR ( Amer) Est GFR (Non-Af Amer) BUN/Creatinine Ratio Glucose POC Glucose 186 H Calcium Total Bilirubin AST ALT Alkaline Phosphatase Total Protein Albumin Globulin Albumin/Globulin Ratio (1) Pneumonia Laterality: bilateral Lung location: unspecified part of lung Pneumonia type: due to unspecified organism Qualified Code(s): J18.9 - Pneumonia, unspecified organism
[2020-03-10 06:39] LABS: Hematocrit (blood only) 36.3 % (42-52); Mean Corpuscular Hemoglobin 28.7 pg (25-34); Mean Corpuscular Hgb Conc 33.1 g/dL (32-36); Mean Corpuscular Volume 86.8 fL (80-100); Mean Platelet Volume 10.2 fL (7.4-10.4); Platelet Count 442 K/uL (130-400); RDW Coefficient of Variation 13.9 % (11.5-14.5); RDW Standard Deviation 43.9 fL (36.4-46.3); Red Blood Count 4.18 M/uL (4.7-6.1); White Blood Count 14.36 K/uL (4.8-10.8)
[2020-03-10 07:17] LABS: Albumin Level 2.3 gm/dl (3.4-5.0); BUN Creatinine Ratio 28.6 (10-20); Calcium 8.5 mg/dl (8.5-10.1); Est GFR (African American) 99.9; Est GFR (Non-African American) 86.2; Potassium 3.9 mmol/L (3.5-5.1)
[2020-03-10 07:20] LABS: Albumin Globulin Ratio 0.5 (0.9-2); Bilirubin,Total 0.7 mg/dl (0.2-1); Globulin 4.2 gm/dl (2.5-4.0); Total Protein 6.5 gm/dl (6.4-8.2)
[2020-03-10] MEDS: ALBUTEROL HFA 8 GM INHALER INH SCH ×4 (07:23→20:30)
[2020-03-10] MEDS: IPRATROPIUM BROMIDE HFA INHALER INH SCH ×4 (07:23→20:30)
[2020-03-10] MEDS: INSULIN ASPART 100 UNITS/ML 3 ML PEN SC SCH ×4 (08:10→22:41)
[2020-03-10] MEDS: INSULIN GLARGINE SOLOSTAR 100 UNITS/ML 3 ML PEN SC SCH (08:10)
[2020-03-10] MEDS: DEXAMETHASONE SOD PHOSPHATE 6 MG in SYRINGE 0 ML IV SCH (08:10)
[2020-03-10] MEDS: guaiFENesin 600 MG TABCR PO SCH ×2 (08:26→21:11)
[2020-03-10] MEDS: LOSARTAN POTASSIUM 50 MG TAB PO SCH (08:26)
[2020-03-10] MEDS: ZINC SULFATE 220 MG CAPSULE PO SCH (08:26)
[2020-03-10] MEDS: AMLODIPINE BESYLATE 5 MG TAB PO SCH (08:26)
[2020-03-10] MEDS: ATORVASTATIN 10 MG TAB PO SCH (08:26)
[2020-03-10] MEDS: MAGNESIUM OXIDE 400 MG TAB PO SCH (08:26)
[2020-03-10] MEDS: CHOLECALCIFEROL 1,000 UNITS 25 MCG TAB PO SCH (08:27)
[2020-03-10] MEDS: SERTRALINE HCL 50 MG TABLET PO SCH (08:27)
[2020-03-10] MEDS: CYANOCOBALAMIN 500 MCG TABLET (VITAMIN B-12) PO SCH (08:27)
[2020-03-10] MEDS: PANTOprazole 40 MG TAB PO SCH (08:27)
[2020-03-10] MEDS: ASCORBIC ACID 500 MG TAB PO SCH ×2 (08:27→21:11)
--- NOTE | 2020-03-10 10:59 | Pulmonology Progress Note ---
Date of Service March 10, 2020 Assessment & Plan (1) Acute hypoxemic respiratory failure: Impression: 79-year-old male with COVID-19 viral pneumonia admitted with progressive hypoxemic respiratory failure. Covid-19 was done as an outpatient approximately a week ago. The actual test result is not available in our system but it was reported to the ER staff and admitting hospitalist. --Acute hypoxic respiratory failure Secondary to multilobar pneumonia in the Covid-19 positive patient Continue with high flow to maintain saturation 88 to 92%. Awake proning if there is desaturation even on high flow. Status post 5 days of remdesivir, last dose 03/08/2020 Continue with dexamethasone 6 mg daily for total of 10 days. Recommend PPI Continue with zinc Patient got 1 dose of convalescent plasma on 03/04/2020 with no complications. Patient CRP is trending down 17-->14.8-->7-->6.69. CPK and creatinine within normal limit. ESR 49-->52-->50-->52. Ferritin trending down. Procalcitonin has been negative. Repeat procalcitonin 03/05/2020 0.19, status post 5 days of antibiotics last dose 03/08/2020 Plan: Significant improvement in FiO2 requirement. Patient is making good progress. We will titrate down FiO2 gradually to keep saturation greater than 88%. With the progress likely transition to nasal cannula in the next couple of days. Patient will need pulmonary rehab once he is more stable. Given the stability of the patient. Pulmonary will follow the patient peripherally. Case discussed with Dr Harper (2) COVID-19: Admission and Anticipated Discharge Date Admission Date: March 03, 2020 Subjective Patient was seen through the glass window of the door. He was lying awake prone saturating 96% on 45% FiO2 and 40 L high flow Not in any acute distress Review of Systems Review of Systems: Not obtained Physical Exam Physical Exam: Deferred due to covid 19 restrictions. Please refer to exam f rom primary service today. Results & Data Results & Data ([facility]) Vital Signs (Past 12 Hours) Vital Signs Temp Pulse Pulse Pulse Resp BP BP 03/10/20 08:00 36.5 C 78 18 120/72 03/10/20 07:24 67 20 03/10/20 04:06 36.6 C 03/10/20 04:02 153/87 H 03/10/20 04:00 03/10/20 03:50 03/10/20 03:40 61 18 03/10/20 03:30 59 L 03/10/20 03:15 58 L 03/10/20 03:00 60 03/10/20 02:45 60 03/10/20 02:30 62 03/10/20 02:29 61 03/10/20 02:15 60 03/10/20 02:11 36.5 C 03/10/20 02:09 62 03/10/20 02:08 61 167/91 H 03/10/20 02:00 58 L 03/10/20 01:45 84 03/10/20 01:30 59 L 03/10/20 01:15 65 03/10/20 01:00 59 L 03/10/20 00:45 59 L 03/10/20 00:30 69 03/10/20 00:15 71 03/10/20 00:00 70 03/09/20 23:45 70 03/09/20 23:30 76 03/09/20 23:27 82 22 03/09/20 23:15 69 03/09/20 23:09 36.7 C 03/09/20 23:00 64 Pulse Ox 03/10/20 08:00 93 03/10/20 07:24 93 03/10/20 04:06 03/10/20 04:02 87 L 03/10/20 04:00 88 L 03/10/20 03:50 80 L 03/10/20 03:40 97 03/10/20 03:30 97 03/10/20 03:15 96 03/10/20 03:00 95 03/10/20 02:45 95 03/10/20 02:30 94 03/10/20 02:29 03/10/20 02:15 95 03/10/20 02:11 03/10/20 02:09 95 03/10/20 02:08 95 03/10/20 02:00 95 03/10/20 01:45 84 L 03/10/20 01:30 98 03/10/20 01:15 97 03/10/20 01:00 97 03/10/20 00:45 94 03/10/20 00:30 93 03/10/20 00:15 94 03/10/20 00:00 95 03/09/20 23:45 94 03/09/20 23:30 91 03/09/20 23:27 91 03/09/20 23:15 97 03/09/20 23:09 03/09/20 23:00 97 03/10/20 05:40 03/10/20 05:40 PG Care Time/CCT Total # of Minutes Spent Total Time Spent with Patient: Total time spent is greater than 50% in coordination of care (as documented) at patient's floor/unit and/or counseling patient: Coding Level of Care Code 09847 Subseq Hosp Care Lvl 2 Diagnoses Acute hypoxemic respiratory failure J96.01 COVID-19 U07.1
[2020-03-10] MEDS: ENOXAPARIN INJ 40 MG/0.4 ML SYR SQ SCH ×2 (12:12→21:09)
--- NOTE | 2020-03-10 12:51 | Hospitalist Progress Note ---
Date of Service March 10, 2020 Assessment & Plan (1) Acute hypoxemic respiratory failure: . (2) COVID-19: (3) Pneumonia: (4) Hypoxia: He and his recently tested positive for COVID-19 outpatient Presented on admission with worsening SOB, fever, cough associated with diarrhea CXR showed mixed interstitial and alveolar opacities within the mid and lower lung zones are compatible with multifocal pneumonia Currently on high flow oxygen since oxygen saturation dropped below 80% on 10L [place] High risk of progression to life threatening illness Pulmonology on board Completed 5 days of Remdesivir therapy on 03/08/20 Convalescent plasma through the [facility] clinical trial ordered Dr. Truong explained to the patient about the [place] study and Convalescent plasma in details Pt signed the consent forms to participate in the study and to received the Convalescent Plasma Received 1 unit of Convalescent plasma on 03/04/20- No complications Continue Dexamethasone 6mg IV daily for now. Today is Day 6. Will complete 10days course. May be changed to po once respiratory status improves Continue monitor BS while on dexamethasone Continue po PPI Continue high flow oxygen and keep oxygen saturation btw 88 to 92 % Jewel Lathe Operator recommendations appreciated Continue awake prone position as much as possible Still on high flow. Oxygen requirement appears to be improving overnight Inflammatory markers generally trending down. Continue to monitor Ferritin: 1298.9-->1555.4-->881.2-->748 CRP: 17-->14.8-->7.03-->6.69 D-dimer: 990-->550-->500-->740 ESR: 49-->52-->50-->52 Blood cx 03/02 positive for gram negative bacilli Repeat blood cx on 03/04 showed no growth so far IV Rocephin changed to IV Zosyn Completed 5 day therapy Continue Zinc, Vitamin C, Vitamin D3 and Magnesium supplements Continue Lovenox 40mg BID subq Continue monitor closely in PCU (5) Bacteremia: Blood cx positive for Gram negative bacilli Was febrile with Tmax 38.3 Repeat blood cx collected on 03/04 showed no growth for now Repeat procalcitonin negative Completed antibiotic therapy (6) Generalized weakness: Due to acute illness Fall precaution Will do PT/OT once respiratory status stable (7) Elevated d-dimer: D-dimer 990 on admission Per Admitting provider, case discussed with Pulmonology Dr. Vargas that recommended to change Lovenox to 40mg BID If pt will require short term anticoagulant on discharge, will consider to change lovenox to eliquis (8) Elevated glucose: Due to Dexamethasone Hba1c 6.8 on 03/04/20 Continue insulin sliding scale Pharmacy on board for glycemic management Continue monitor BS (9) Hypertension: BP stable Continue Losartan and amlodipine Continue monitor BP closely DVT px on Lovenox subq CODE status Full code Disposition Continue monitor closely in PCU Admission and Anticipated Discharge Date Admission Date: March 03, 2020 Subjective Patient seen and examined. Reported feeling better. States cough and shortness of breath continue to improve Reports diarrhea is resolved. Denied any abd pain, nausea, vomiting Denied any chest pain Physical Exam Constitutional: + well hydrated; no acute distress Eyes: PERRL, conjunctivae normal, anicteric sclerae Respiratory: normal respiratory effort; no respiratory distress Cardiovascular: Rate/Rhythm: regular rate and regular rhythm Heart Sounds: normal S1 and normal S2 Extremities: no edema Gastrointestinal (Abdomen): normal bowel sounds, soft, nontender, no hepatosplenomegaly Musculoskeletal: no cyanosis or clubbing, extremities motor strength 5/5 Neurologic: PERRL, EOMI, accommodation nl, no face palsy, no dysarthria Psychiatric: A+Ox3, euthymic affect Results & Data Results & Data ([facility]) Vital Signs (Past 12 Hours) Vital Signs Temp Pulse Pulse Resp BP BP Pulse Ox 03/10/20 12:18 36.5 C 74 18 122/65 91 03/10/20 11:27 65 18 92 03/10/20 08:00 36.5 C 78 18 120/72 93 03/10/20 07:24 67 20 93 03/10/20 04:06 36.6 C 03/10/20 04:02 153/87 H 87 L 03/10/20 04:00 88 L 03/10/20 03:50 80 L 03/10/20 03:40 61 18 97 03/10/20 03:30 59 L 97 03/10/20 03:15 58 L 96 03/10/20 03:00 60 95 03/10/20 02:45 60 95 03/10/20 02:30 62 94 03/10/20 02:29 61 03/10/20 02:15 60 95 03/10/20 02:11 36.5 C 03/10/20 02:09 62 95 03/10/20 02:08 61 167/91 H 95 03/10/20 02:00 58 L 95 03/10/20 01:45 84 84 L 03/10/20 01:30 59 L 98 03/10/20 01:15 65 97 03/10/20 01:00 59 L 97 03/10/20 00:45 59 L 94 Laboratory Results Laboratory Results - last 24 hr 03/09/20 03/09/20 03/09/20 12:59 15:28 21:07 WBC RBC Hgb Hct MCV MCH MCHC RDW Std Deviation RDW Coeff of Vinny Plt Count MPV Sodium Potassium Chloride Carbon Dioxide Anion Gap BUN Creatinine Est Cr Clr Drug Dosing Est GFR ( Amer) Est GFR (Non-Af Amer) BUN/Creatinine Ratio Glucose POC Glucose 186 H 164 H 186 H Calcium Total Bilirubin AST ALT Alkaline Phosphatase Total Protein Albumin Globulin Albumin/Globulin Ratio 03/10/20 03/10/20 03/10/20 05:40 05:40 08:20 WBC 14.36 H RBC 4.18 L Hgb 12.0 L Hct 36.3 L MCV 86.8 MCH 28.7 MCHC 33.1 RDW Std Deviation 43.9 RDW Coeff of Vinny 13.9 Plt Count 442 H MPV 10.2 Sodium 141 Potassium 3.9 Chloride 107 Carbon Dioxide 27 Anion Gap 7.0 BUN 23 H Creatinine 0.80 Est Cr Clr Drug Dosing 95.0 Est GFR ( Amer) 99.9 Est GFR (Non-Af Amer) 86.2 BUN/Creatinine Ratio 28.6 H Glucose 105 H POC Glucose 108 H Calcium 8.5 Total Bilirubin 0.7 AST 16 ALT 42 Alkaline Phosphatase 50 Total Protein 6.5 Albumin 2.3 L Globulin 4.2 H Albumin/Globulin Ratio 0.5 L 03/10/20 12:07 WBC RBC Hgb Hct MCV MCH MCHC RDW Std Deviation RDW Coeff of Vinny Plt Count MPV Sodium Potassium Chloride Carbon Dioxide Anion Gap BUN Creatinine Est Cr Clr Drug Dosing Est GFR ( Amer) Est GFR (Non-Af Amer) BUN/Creatinine Ratio Glucose POC Glucose 91 Calcium Total Bilirubin AST ALT Alkaline Phosphatase Total Protein Albumin Globulin Albumin/Globulin Ratio (1) Pneumonia Laterality: bilateral Lung location: unspecified part of lung Pneumonia type: due to unspecified organism Qualified Code(s): J18.9 - Pneumonia, unspecified organism
--- NOTE | 2020-03-10 14:11 | Pharmacy Report ---
Pharmacy Glycemic Short Note 2 - Date of Service March 10, 2020 - Glycemic Short BSG Results (Last 24 hours): 03/09/20 03/09/20 03/10/20 15:28 21:07 05:40 Glucose 105 H POC Glucose 164 H 186 H 03/10/20 03/10/20 08:20 12:07 Glucose POC Glucose 108 H 91 OUTPATIENT ANTIDIABETIC REGIMEN: * N/A * A1c 6.8% 03/04/2020 ASSESSMENT: 03/10/20 * Patient on day 8 of IV dexamethasone 6mg daily, blood sugars at goal * No changes needed in insulin regimen at this time, will need to loosen as steroid effects wear off 03/08/20 * Mr. Collier remains on dexamethasone 6 mg IV daily, BSG ranged from 128-222 mg/dL * Utilized 28 units of insulin yesterday: 10 units of basal, 18 correctional/prandial * Fasting BSG this AM 133; continue current basal dosing * Carb ratio tightened this morning, lunch BSG 140 mg/dL today, will continue with current novolog parameters PLAN FOR INPATIENT GLYCEMIC CONTROL: * Basal insulin * Lantus 8-10 units per scale * Bolus insulin * NovoLog per scale ACHS or Q6hrs while NPO * Goal Range: Low 110 mg/dL - High 140 mg/dL * Correction Factor: 20 mg/dL/unit * Nutritional / Prandial insulin per carb ratio of 1 unit per 6 grams CHO consumed PLAN FOR DISCHARGE: * Patient's A1c 6.8% indicates diabetes, uncertain if patient has had formal diagnosis, however, this A1c is within goal range for patient * Patient likely will not need medication at discharge and can f/u with primary care doctor to discuss lifestyle modifications
[2020-03-10] MEDS: LORazepam 0.5 MG TAB PO PRN (21:32)
[2020-03-11 07:10] LABS: BUN Creatinine Ratio 25.1 (10-20); Calcium 8.4 mg/dl (8.5-10.1); Est GFR (Non-African American) 82.9
[2020-03-11] MEDS ORDERED: ALBUTEROL HFA 8 GM INHALER INH PRN (07:19)
[2020-03-11] MEDS: IPRATROPIUM BROMIDE HFA INHALER INH SCH (07:29)
[2020-03-11] MEDS ORDERED: IPRATROPIUM BROMIDE HFA INHALER INH PRN (07:41)
[2020-03-11] MEDS: DEXAMETHASONE SOD PHOSPHATE 6 MG in SYRINGE 0 ML IV SCH (08:11)
[2020-03-11] MEDS: ASCORBIC ACID 500 MG TAB PO SCH ×2 (08:12→21:10)
[2020-03-11] MEDS: guaiFENesin 600 MG TABCR PO SCH ×2 (08:12→21:10)
[2020-03-11] MEDS: MAGNESIUM OXIDE 400 MG TAB PO SCH (08:12)
[2020-03-11] MEDS: PANTOprazole 40 MG TAB PO SCH (08:13)
[2020-03-11] MEDS: ATORVASTATIN 10 MG TAB PO SCH (08:13)
[2020-03-11] MEDS: CYANOCOBALAMIN 500 MCG TABLET (VITAMIN B-12) PO SCH (08:13)
[2020-03-11] MEDS: LOSARTAN POTASSIUM 50 MG TAB PO SCH (08:13)
[2020-03-11] MEDS: ENOXAPARIN INJ 40 MG/0.4 ML SYR SQ SCH ×2 (08:13→21:10)
[2020-03-11] MEDS: ZINC SULFATE 220 MG CAPSULE PO SCH (08:14)
[2020-03-11] MEDS: CHOLECALCIFEROL 1,000 UNITS 25 MCG TAB PO SCH (08:14)
[2020-03-11] MEDS: AMLODIPINE BESYLATE 5 MG TAB PO SCH (08:14)
[2020-03-11] MEDS: SERTRALINE HCL 50 MG TABLET PO SCH (08:15)
[2020-03-11] MEDS: INSULIN ASPART 100 UNITS/ML 3 ML PEN SC SCH ×4 (09:20→21:21)
[2020-03-11] MEDS: INSULIN GLARGINE SOLOSTAR 100 UNITS/ML 3 ML PEN SC SCH (09:22)
--- NOTE | 2020-03-11 11:09 | Pharmacy Report ---
Pharmacy Glycemic Short Note 2 - Date of Service March 11, 2020 - Glycemic Short BSG Results (Last 24 hours): 03/10/20 03/10/20 03/10/20 12:07 16:23 21:16 Glucose POC Glucose 91 185 H 175 H 03/11/20 03/11/20 06:15 08:07 Glucose 119 H POC Glucose 115 H OUTPATIENT ANTIDIABETIC REGIMEN: * N/A * A1c 6.8% 03/04/2020 ASSESSMENT: 03/11/20 * Dexamethasone 6 mg IV daily (day 9 ). Stop date on order appropriate for 10 day course for COVID-19 * Three day trend where dinner and bedtime BSG's all >160 mg/dL with 4 >180 mg/dL - likely due to increased post-prandial elevations from AM adminis tration of steroids. Will therefore tighten CHO ratio at lunch and dinner only 03/10/20 * Patient on day 8 of IV dexamethasone 6mg daily, blood sugars at goal * No changes needed in insulin regimen at this time, will need to loosen as steroid effects wear off 03/08/20 * Mr. Collier remains on dexamethasone 6 mg IV daily, BSG ranged from 128-222 mg/dL * Utilized 28 units of insulin yesterday: 10 units of basal, 18 correctional/prandial * Fasting BSG this AM 133; continue current basal dosing * Carb ratio tightened this morning, lunch BSG 140 mg/dL today, will continue with current novolog parameters PLAN FOR INPATIENT GLYCEMIC CONTROL: * Basal insulin * Lantus 8-10 units per scale * Bolus insulin * NovoLog per scale ACHS or Q6hrs while NPO * Goal Range: Low 110 mg/dL - High 140 mg/dL * Correction Factor: 20 mg/dL/unit * Carb ratio: 6 g CHO/unit with breakfast and at bedtime, 5 g CHO/unit with lunch and dinner PLAN FOR DISCHARGE: * Patient's A1c 6.8% indicates diabetes and is not on any outpatient medications. Uncertain if patient has had formal diagnosis, however, this A1c is within goal range for patient * Patient likely will not need medication at discharge as steroids are scheduled to stop 03/12 * Recommend f/u with primary care doctor to discuss lifestyle modifications
--- NOTE | 2020-03-11 13:53 | Hospitalist Progress Note ---
Date of Service March 11, 2020 Assessment & Plan (1) Acute hypoxemic respiratory failure: . (2) COVID-19: (3) Pneumonia: (4) Hypoxia: He and his recently tested positive for COVID-19 outpatient Presented on admission with worsening SOB, fever, cough associated with diarrhea CXR showed mixed interstitial and alveolar opacities within the mid and lower lung zones are compatible with multifocal pneumonia Currently on high flow oxygen since oxygen saturation dropped below 80% on 10L [place] High risk of progression to life threatening illness Pulmonology on board Completed 5 days of Remdesivir therapy on 03/08/20 Convalescent plasma through the [facility] clinical trial ordered Dr. Truong explained to the patient about the [place] study and Convalescent plasma in details Pt signed the consent forms to participate in the study and to received the Convalescent Plasma Received 1 unit of Convalescent plasma on 03/04/20- No complications Review of MAR shows patient has been on dexamethasone since 03/03, hence today will be day 9. Will complete 10 days of therapy Continue monitor BS while on dexamethasone Continue po PPI Continue nasal oxygen and keep oxygen saturation btw 88 to 92 % Will continue to wean as tolerated Continue awake prone position as much as possible Patient is clinically improving Inflammatory markers generally trending down. Continue to monitor Ferritin: 1298.9-->1555.4-->881.2-->748 CRP: 17-->14.8-->7.03-->6.69 D-dimer: 990-->550-->500-->740 ESR: 49-->52-->50-->52 Blood cx 03/02 positive for gram negative bacilli Repeat blood cx on 03/04 showed no growth so far IV Rocephin changed to IV Zosyn Completed 5 day therapy Continue Zinc, Vitamin C, Vitamin D3 and Magnesium supplements Continue Lovenox 40mg BID subq Continue monitor closely in PCU (5) Bacteremia: Blood cx positive for Gram negative bacilli Was febrile with Tmax 38.3 Repeat blood cx collected on 03/04 showed no growth for now Repeat procalcitonin negative Completed antibiotic therapy (6) Generalized weakness: Due to acute illness Fall precaution Will do PT/OT once respiratory status stable. Encouraged to stay active in the room as tolerated (7) Elevated d-dimer: D-dimer 990 on admission Per Admitting provider, case discussed with Pulmonology Dr. Vargas that recommended to change Lovenox to 40mg BID If pt will require short term anticoagulant on discharge, will consider to change lovenox to eliquis (8) Elevated glucose: Due to Dexamethasone Hba1c 6.8 on 03/04/20 Continue insulin sliding scale Pharmacy on board for glycemic management Continue monitor BS (9) Hypertension: BP stable Continue Losartan and amlodipine Continue monitor BP closely DVT px on Lovenox subq CODE status Full code Disposition Continue monitor closely in PCU Admission and Anticipated Discharge Date Admission Date: March 03, 2020 Subjective Patient seen and examined Reports feeling better. Reports shortness of breath with exertion resolved. Been weaned off high flow. Currenlty on 6l/min of nasal oxygen Still has some desaturation to >87% on current oxygen Denied any chest pain, abd pain, diarrhea Reports cough is almost resolved Physical Exam Constitutional: + well hydrated; no acute distress Eyes: PERRL, conjunctivae normal, anicteric sclerae Respiratory: normal respiratory effort; no respiratory distress On 6l/min nasal oxygen with sats in 90-92 during exam Cardiovascular: Rate/Rhythm: regular rate and regular rhythm Heart Sounds: normal S1 and normal S2 Extremities: no edema Gastrointestinal (Abdomen): normal bowel sounds, soft, nontender, no hepatosplenomegaly Musculoskeletal: no cyanosis or clubbing, extremities motor strength 5/5 Neurologic: PERRL, EOMI, accommodation nl, no face palsy, no dysarthria Psychiatric: A+Ox3, euthymic affect Results & Data Results & Data ([facility]) Vital Signs (Past 12 Hours) Vital Signs Temp Pulse Pulse Pulse Resp BP BP 03/11/20 08:04 36.5 C 72 16 140/66 03/11/20 07:31 76 20 03/11/20 05:05 77 172/115 H 03/11/20 05:04 36.7 C 03/11/20 05:00 61 03/11/20 04:45 72 03/11/20 04:30 61 03/11/20 04:15 63 03/11/20 04:00 65 03/11/20 03:45 62 03/11/20 03:30 64 03/11/20 03:15 68 03/11/20 03:00 61 03/11/20 02:47 83 03/11/20 02:30 64 03/11/20 02:15 62 03/11/20 02:00 64 Pulse Ox 03/11/20 08:04 88 L 03/11/20 07:31 89 L 03/11/20 05:05 03/11/20 05:04 03/11/20 05:00 90 03/11/20 04:45 90 03/11/20 04:30 86 L 03/11/20 04:15 89 L 03/11/20 04:00 85 L 03/11/20 03:45 89 L 03/11/20 03:30 89 L 03/11/20 03:15 85 L 03/11/20 03:00 88 L 03/11/20 02:47 81 L 03/11/20 02:30 95 03/11/20 02:15 95 03/11/20 02:00 96 Laboratory Results Laboratory Results - last 24 hr 03/10/20 03/10/20 03/11/20 16:23 21:16 06:15 Sodium 139 Potassium 4.0 Chloride 106 Carbon Dioxide 27 Anion Gap 6.0 BUN 22 H Creatinine 0.88 Est Cr Clr Drug Dosing 86.0 Est GFR ( Amer) 96.0 Est GFR (Non-Af Amer) 82.9 BUN/Creatinine Ratio 25.1 H Glucose 119 H POC Glucose 185 H 175 H Calcium 8.4 L 03/11/20 03/11/20 08:07 12:01 Sodium Potassium Chloride Carbon Dioxide Anion Gap BUN Creatinine Est Cr Clr Drug Dosing Est GFR ( Amer) Est GFR (Non-Af Amer) BUN/Creatinine Ratio Glucose POC Glucose 115 H 144 H Calcium (1) Pneumonia Laterality: bilateral Lung location: unspecified part of lung Pneumonia type: due to unspecified organism Qualified Code(s): J18.9 - Pneumonia, unspeci fied organism
[2020-03-11] MEDS: ALBUTEROL HFA 8 GM INHALER INH SCH (18:04)
[2020-03-11] MEDS: LORazepam 0.5 MG TAB PO PRN (21:10)
[2020-03-12 06:50] LABS: Hemoglobin 12.3 g/dL (14.0-18.0); Mean Corpuscular Hemoglobin 28.5 pg (25-34); Mean Corpuscular Hgb Conc 33.2 g/dL (32-36); Mean Corpuscular Volume 85.6 fL (80-100); Mean Platelet Volume 9.6 fL (7.4-10.4); Platelet Count 440 K/uL (130-400); RDW Coefficient of Variation 13.9 % (11.5-14.5); RDW Standard Deviation 43.7 fL (36.4-46.3); Red Blood Count 4.32 M/uL (4.7-6.1); White Blood Count 15.22 K/uL (4.8-10.8)
[2020-03-12 07:21] LABS: BUN Creatinine Ratio 27.1 (10-20); Calcium 8.4 mg/dl (8.5-10.1); Creatinine Clr Calc Pharmacy 92.5 ml/min; Est GFR (African American) 98.9; Est GFR (Non-African American) 85.3
[2020-03-12] MEDS: INSULIN ASPART 100 UNITS/ML 3 ML PEN SC SCH ×4 (08:30→21:04)
[2020-03-12] MEDS: INSULIN GLARGINE SOLOSTAR 100 UNITS/ML 3 ML PEN SC SCH (09:25)
--- NOTE | 2020-03-12 11:21 | Pharmacy Report ---
Pharmacy Glycemic Short Note 2 - Date of Service March 12, 2020 - Glycemic Short BSG Results (Last 24 hours): 03/11/20 03/11/20 03/11/20 12:01 16:43 21:09 Glucose POC Glucose 144 H 181 H 139 H 03/12/20 03/12/20 03/12/20 06:05 08:26 10:53 Glucose 111 H POC Glucose 111 H 161 H OUTPATIENT ANTIDIABETIC REGIMEN: * N/A * A1c 6.8% 03/04/2020 ASSESSMENT: 03/12 * BSGs well controlled over last 24 hrs with current insulin orders * 44 units of SQ insulin administer in last 24 hrs while tolerating a diet * Fasting BSG 111 with 10 units basal insulin on board * Post-prandial BSGs 181 or less over last 24 hrs * Today is last day of Dexamethasone 6mg IV - may need to lessen Novolog doses in the near future 03/11/20 * Dexamethasone 6 mg IV daily (day of ). Stop date on order appropriate for 10 day course for COVID-19 * Three day trend where dinner and bedtime BSG's all >160 mg/dL with 4 >180 mg/dL - likely due to increased post-prandial elevations from AM administration of steroids. Will therefore tighten CHO ratio at lunch and dinner only 03/10/20 * Patient on day of IV dexamethasone 6mg daily, blood sugars at goal * No changes needed in insulin regimen at this time, will need to loosen as steroid effects wear off PLAN FOR INPATIENT GLYCEMIC CONTROL: * Basal insulin * Lantus 8-10 units Q AM per scale (see EMR) * Bolus insulin * NovoLog per scale ACHS or Q6hrs while NPO * Goal Range: Low 110 mg/dL - High 140 mg/dL * Correction Factor: 20 mg/dL/unit * Carb ratio: 6 g CHO/unit with breakfast and at bedtime, 5 g CHO/unit with l unch and dinner PLAN FOR DISCHARGE: * Patient's A1c 6.8% indicates diabetes and is not on any outpatient medications. Uncertain if patient has had formal diagnosis, however, this A1c is within goal range for patient * Patient likely will not need medication at discharge as steroids are scheduled to stop 03/12 * Recommend f/u with primary care doctor to discuss lifestyle modifications
--- NOTE | 2020-03-12 11:23 | Hospitalist Progress Note ---
Date of Service March 12, 2020 Assessment & Plan (1) Acute hypoxemic respiratory failure: (2) COVID-19: (3) Pneumonia: (4) Hypoxia: He and his recently tested positive for COVID-19 outpatient Presented on admission with worsening SOB, fever, cough associated with diarrhea CXR showed mixed interstitial and alveolar opacities within the mid and lower lung zones are compatible with multifocal pneumonia Currently on high flow oxygen since oxygen saturation dropped below 80% on 10L [place] High risk of progression to life threatening illness Pulmonology on board Completed 5 days of Remdesivir therapy on 03/08/20 Convalescent plasma through the [facility] clinical trial ordered Dr. Truong explained to the patient about the [place] study and Convalescent plasma in details Pt signed the consent forms to participate in the study and to received the Convalescent Plasma Received 1 unit of Convalescent plasma on 03/04/20- No complications Will complete 10 days of therapy of dexamethasone today Continue monitor BS while on dexamethasone Continue po PPI Continue nasal oxygen and keep oxygen saturation btw 88 to 92 % Will continue to wean as tolerated Continue awake prone position as much as possible Patient has clinically improved over the past few days. May start discharge planning as patient's oxygen requirement improves. Currently at 6l/min nasal oxygen Inflammatory markers generally trending down. Continue to monitor Ferritin: 1298.9-->1555.4-->881.2-->748 CRP: 17-->14.8-->7.03-->6.69 D-dimer: 990-->550-->500-->740 ESR: 49-->52-->50-->52 Blood cx 03/02 positive for gram negative bacilli Repeat blood cx on 03/04 showed no growth so far IV Rocephin changed to IV Zosyn Completed 5 day therapy Continue Zinc, Vitamin C, Vitamin D3 and Magnesium supplements Continue Lovenox 40mg BID subq Continue monitor closely in PCU (5) Bacteremia: Blood cx positive for Gram negative bacilli Repeat blood cx collected on 03/04 showed no growth Repeat procalcitonin negative Completed antibiotic therapy (6) Generalized weakness: Due to acute illness Fall precaution Can PT/OT once respiratory status stable. Encouraged to stay active in the room as tolerated (7) Elevated d-dimer: D-dimer 990 on admission Per Admitting provider, case discussed with Pulmonology Dr. Vargas that recommended to change Lovenox to 40mg BID If pt will require short term anticoagulant on discharge, will consider to change lovenox to eliquis (8) Elevated glucose: Due to Dexamethasone Hba1c 6.8 on 03/04/20 Continue insulin sliding scale Pharmacy on board for glycemic management Continue monitor BS (9) Hypertension: BP stable Continue Losartan and amlodipine Continue monitor BP closely DVT px on Lovenox subq CODE status Full code Disposition Continue monitor closely in PCU Admission and Anticipated Discharge Date Admission Date: March 03, 2020 Subjective Patient seen and examined Patient continue to report improvement in shortness of breath. Reports occasional dry cough Reports occasional loose stool but not as much as a few days ago Denied any chest pain. Reports increased activity Has been on nasal cannula for over 24h now. On 6l/min nasal oxygen Physical Exam Constitutional: + well hydrated; no acute distress Eyes: PERRL, conjunctivae normal, anicteric sclerae Respiratory: normal respiratory effort; no respiratory distress On 6l/min nasal oxygen. No crackles or wheeze Cardiovascular: Rate/Rhythm: regular rate and regular rhythm Heart Sounds: normal S1 and normal S2 Extremities: no edema Gastrointestinal (Abdomen): normal bowel sounds, soft, nontender, no hepatosplenomegaly Musculoskeletal: no cyanosis or clubbing, extremities motor strength 5/5 Neurologic: PERRL, EOMI, accommodation nl, no face palsy, no dysarthria Psychiatric: A+Ox3, euthymic affect Results & Data Results & Data ([facility]) Vital Signs (Past 12 Hours) Vital Signs Temp Pulse Pulse Resp BP Pulse Ox 03/12/20 08:21 36.6 C 73 16 139/65 95 03/12/20 07:39 63 18 96 03/12/20 05:11 36.4 C L 73 16 165/97 H 96 03/12/20 00:33 36.7 C 68 16 122/64 92 03/12/20 00:21 81 Laboratory Results Laboratory Results - last 24 hr 03/11/20 03/11/20 03/11/20 12:01 16:43 21:09 WBC RBC Hgb Hct MCV MCH MCHC RDW Std Deviation RDW Coeff of Vinny Plt Count MPV Sodium Potassium Chloride Carbon Dioxide Anion Gap BUN Creatinine Est Cr Clr Drug Dosing Est GFR ( Amer) Est GFR (Non-Af Amer) BUN/Creatinine Ratio Glucose POC Glucose 144 H 181 H 139 H Calcium 03/12/20 03/12/20 03/12/20 06:05 06:05 08:26 WBC 15.22 H RBC 4.32 L Hgb 12.3 L Hct 37.0 L MCV 85.6 MCH 28.5 MCHC 33.2 RDW Std Deviation 43.7 RDW Coeff of Vinny 13.9 Plt Count 440 H MPV 9.6 Sodium 140 Potassium 4.0 Chloride 108 H Carbon Dioxide 26 Anion Gap 6.0 BUN 22 H Creatinine 0.82 Est Cr Clr Drug Dosing 92.5 Est GFR ( Amer) 98.9 Est GFR (Non-Af Amer) 85.3 BUN/Creatinine Ratio 27.1 H Glucose 111 H POC Glucose 111 H Calcium 8.4 L 03/12/20 10:53 WBC RBC Hgb Hct MCV MCH MCHC RDW Std Deviation RDW Coeff of Vinny Plt Count MPV Sodium Potassium Chloride Carbon Dioxide Anion Gap BUN Creatinine Est Cr Clr Drug Dosing Est GFR ( Amer) Est GFR (Non-Af Amer) BUN/Creatinine Ratio Glucose POC Glucose 161 H Calcium (1) Pneumonia Laterality: bilateral Lung location: unspecified part of lung Pneumonia type: due to unspecified organism Qualified Code(s): J18.9 - Pneumonia, unspecified organism
[2020-03-12] MEDS: ATORVASTATIN 10 MG TAB PO SCH (11:50)
[2020-03-12] MEDS: MAGNESIUM OXIDE 400 MG TAB PO SCH (11:50)
[2020-03-12] MEDS: DEXAMETHASONE SOD PHOSPHATE 6 MG in SYRINGE 0 ML IV SCH (11:50)
[2020-03-12] MEDS: ENOXAPARIN INJ 40 MG/0.4 ML SYR SQ SCH ×2 (11:50→20:32)
[2020-03-12] MEDS: LOSARTAN POTASSIUM 50 MG TAB PO SCH (11:50)
[2020-03-12] MEDS: CHOLECALCIFEROL 1,000 UNITS 25 MCG TAB PO SCH (11:51)
[2020-03-12] MEDS: ASCORBIC ACID 500 MG TAB PO SCH ×2 (11:51→20:32)
[2020-03-12] MEDS: guaiFENesin 600 MG TABCR PO SCH ×2 (11:51→20:32)
[2020-03-12] MEDS: PANTOprazole 40 MG TAB PO SCH (11:51)
[2020-03-12] MEDS: SERTRALINE HCL 50 MG TABLET PO SCH (11:51)
[2020-03-12] MEDS: CYANOCOBALAMIN 500 MCG TABLET (VITAMIN B-12) PO SCH (11:51)
[2020-03-12] MEDS: ZINC SULFATE 220 MG CAPSULE PO SCH (11:51)
[2020-03-12] MEDS: AMLODIPINE BESYLATE 5 MG TAB PO SCH (11:51)
--- NOTE | 2020-03-12 16:51 | Pulmonology Progress Note ---
Date of Service March 12, 2020 Assessment & Plan (1) Acute hypoxemic respiratory failure: Impression: 79-year-old male with COVID-19 viral pneumonia admitted with progressive hypoxemic respiratory failure. Covid-19 was done as an outpatient approximately a week ago. The actual test result is not available in our system but it was reported to the ER staff and admitting hospitalist. --Acute hypoxic respiratory failure Secondary to multilobar pneumonia in the Covid-19 positive patient Plan: continues to show progress. Weaning oxygen as tolerated, currently 94% 6L [place]. Pulmonary will sign off. Call if additional questions. (2) COVID-19: Admission and Anticipated Discharge Date Admission Date: March 03, 2020 Subjective Chart/EMR reviewed. continues clinical improvement. Physical Exam Physical Exam: Physical exam deferred due to COVID-19 restrictions and hospital policy. Please refer to the exam from the primary service from today Results & Data Results & Data ([facility]) Vital Signs (Past 12 Hours) Vital Signs Temp Pulse Pulse Pulse Resp BP Pulse Ox 03/12/20 15:44 36.6 C 67 18 137/74 94 03/12/20 11:37 36.4 C L 79 20 116/44 L 92 03/12/20 08:21 36.6 C 73 16 139/65 95 03/12/20 08:00 69 03/12/20 07:39 63 18 96 03/12/20 05:11 36.4 C L 73 16 165/97 H 96 PG Care Time/CCT Total # of Minutes Spent Total Time Spent with Patient: Total time spent is greater than 50% in coordination of care (as documented) at patient's floor/unit and/or counseling patient: Coding Level of Care Code 55429 Subseq Hosp Care Lvl 1 Diagnoses Acute hypoxemic respiratory failure J96.01 COVID-19 U07.1
[2020-03-12] MEDS: LORazepam 0.5 MG TAB PO PRN (20:32)
[2020-03-13] MEDS: guaiFENesin 600 MG TABCR PO SCH ×2 (08:03→20:41)
[2020-03-13] MEDS: ASCORBIC ACID 500 MG TAB PO SCH ×2 (08:03→20:40)
[2020-03-13] MEDS: INSULIN ASPART 100 UNITS/ML 3 ML PEN SC SCH ×4 (08:05→21:37)
[2020-03-13] MEDS: INSULIN GLARGINE SOLOSTAR 100 UNITS/ML 3 ML PEN SC SCH (08:05)
[2020-03-13] MEDS: PANTOprazole 40 MG TAB PO SCH (08:09)
[2020-03-13] MEDS: CYANOCOBALAMIN 500 MCG TABLET (VITAMIN B-12) PO SCH (08:10)
[2020-03-13] MEDS: AMLODIPINE BESYLATE 5 MG TAB PO SCH (08:10)
[2020-03-13] MEDS: ENOXAPARIN INJ 40 MG/0.4 ML SYR SQ SCH ×2 (08:10→20:40)
[2020-03-13] MEDS: MAGNESIUM OXIDE 400 MG TAB PO SCH (08:10)
[2020-03-13] MEDS: ZINC SULFATE 220 MG CAPSULE PO SCH (08:10)
[2020-03-13] MEDS: ATORVASTATIN 10 MG TAB PO SCH (08:11)
[2020-03-13] MEDS: LOSARTAN POTASSIUM 50 MG TAB PO SCH (08:11)
[2020-03-13] MEDS: CHOLECALCIFEROL 1,000 UNITS 25 MCG TAB PO SCH (08:11)
[2020-03-13] MEDS: SERTRALINE HCL 50 MG TABLET PO SCH (08:12)
[2020-03-13 09:20] LABS: Hematocrit (blood only) 39.1 % (42-52); Mean Corpuscular Hemoglobin 28.8 pg (25-34); Mean Corpuscular Hgb Conc 33.2 g/dL (32-36); Mean Corpuscular Volume 86.7 fL (80-100); Mean Platelet Volume 10.3 fL (7.4-10.4); Platelet Count 378 K/uL (130-400); RDW Coefficient of Variation 14.1 % (11.5-14.5); RDW Standard Deviation 44.3 fL (36.4-46.3); Red Blood Count 4.51 M/uL (4.7-6.1); White Blood Count 16.87 K/uL (4.8-10.8)
[2020-03-13 10:29] LABS: BUN Creatinine Ratio 21.4 (10-20); Calcium 8.8 mg/dl (8.5-10.1); Creatinine Clr Calc Pharmacy 76.5 ml/min; Est GFR (African American) 84.8; Est GFR (Non-African American) 73.2; Potassium 3.8 mmol/L (3.5-5.1)
--- NOTE | 2020-03-13 11:29 | Pharmacy Report ---
Pharmacy Glycemic Short Note 2 - Date of Service March 13, 2020 - Glycemic Short BSG Results (Last 24 hours): 03/12/20 03/12/20 03/13/20 15:49 20:30 08:01 Glucose POC Glucose 106 H 126 H 104 H 03/13/20 08:46 Glucose 106 H POC Glucose OUTPATIENT ANTIDIABETIC REGIMEN: * N/A * A1c 6.8% 03/04/2020 ASSESSMENT: 03/13 * BSGs remain well controlled * 61 units SQ insulin given in last 24 hrs while tolerating diet * Fasting BSG 1004 this AM with 10 units basal insulin on board * Dexamethasone has been d/c'd. Will begin to downward titrate Novolog doses. Given long biologic half-life of dexamethasone, effects on post-prandial BSGs may still be seen today 03/12 * BSGs well controlled over last 24 hrs with current insulin orders * 44 units of SQ insulin administer in last 24 hrs while tolerating a diet * Fasting BSG 111 with 10 units basal insulin on board * Post-prandial BSGs 181 or less over last 24 hrs * Today is last day of Dexamethasone 6mg IV - may need to lessen Novolog doses in the near future 03/11/20 * Dexamethasone 6 mg IV daily (day 9 of ). Stop date on order appropriate for 10 day course for COVID-19 * Three day trend where dinner and bedtime BSG's all >160 mg/dL with 4 >180 mg/dL - likely due to increased post-prandial elevations from AM administration of steroids. Will therefore tighten CHO ratio at lunch and dinner only 03/10/20 * Patient on day 8 of IV dexamethasone 6mg daily, blood sugars at goal * No changes needed in insulin regimen at this time, will need to loosen as steroid effects wear off PLAN FOR INPATIENT GLYCEMIC CONTROL: * Basal insulin * Lantus 8-10 units Q AM per scale (see EMR) * Bolus insulin * NovoLog per scale ACHS or Q6hrs while NPO * Goal Range: Low 110 mg/dL - High 140 mg/dL * Correction Factor: 20 mg/dL/unit * Carb ratio: 1 unit per 7 g CHO consumed with meals PLAN FOR DISCHARGE: * Patient's A1c 6.8% indicates diabetes and is not on any outpatient medications. Uncertain if patient has had formal diagnosis, however, this A1c is within goal range for patient * Patient likely will not need medication at discharge as steroids are scheduled to stop 03/12 * Recommend f/u with primary care doctor to discuss lifestyle modifications
--- NOTE | 2020-03-13 14:58 | Hospitalist Progress Note ---
Date of Service March 13, 2020 Assessment & Plan (1) Acute hypoxemic respiratory failure: 2/2 COVID infection. Improved now to approx 3 LPM oxygen supplementation at rest, needing ?more with exertion. Will plan to continue to wean as tolerated and send him home with oxygen supplementation that is a reasonable level of support such as 2-3 LPM. (2) COVID-19: Completed 10 days dexamethasone, remdesivir course, and received one unit of convalescent plasma. Completed a course of antibiotics to rule out bacterial superinfection. At this point it is about supporting him from an oxygen standpoint. and he continues to feel improved each day. Will draw inflammatory markers in am. Cont weaning oxygen as above. Continue Zinc, Vitamin C, Vitamin D3 and Magnesium supplements. Will switch Lovenox injections to Eliquis and although some guidelines are discussing extending this thromboprophylaxis period for one month post-discharge, data mostly support a benefit in those who are non-ambulatory which is not the case with this patient. (3) Pneumonia: 2/2 covid. Received remdesivir and abx course. Repeat CXR in 4-6 weeks to ensure complete resolution of pneumonia, already improved on imaging. (4) Hypoxia: 2/2 COVID, plan as above. (5) Bacteremia: Blood cx positive for Gram negative bacilli Repeat blood cx collected on 03/04 showed no growth, ? contaminant. Doing well clinically. Repeat procalcitonin negative Completed antibiotic therapy (6) Elevated d-dimer: Elevated D dimer on admission likely related to COVID-19 infection as opposed to a thromboembolic clot. This was trended as a marker of inflammation. (7) Hypertension: controlled on Norvasc and cozaar. (8) Hyperglycemia: Likely related to steroid use. He received a course of dexamethasone and also had an outpatient prednisone taper prior to that. Review of outpatient A1C was 6.2 in Jun 2019 and A1C was 6.8 here, however, there is no prior history of diabetes. This level should be repeated by PCP as outpatient off steroids in the next couple of weeks. Will stop BSGs, insulin including carbohydrate coverage for now as he is off the steroids and has not needed any insulin today. (9) DVT prophylaxis: Lovenox 40mg BID Full Dispo-home in 1-2 days or when able to ambulate on a reasonable amount of oxygen to send home. Marian Truong DO [facility] Hospitalist Admission and Anticipated Discharge Date Admission Date: March 03, 2020 Subjective 79 yo COVID + man doing much better now. Reports continued improvement in his breathing even with walking around. Oxygenating well at rest in the mid 90s on 3LPM, with notable decline in saturation with minimal exertion such as physical exam. He is pumped to go home as soon as able, and his (who I talked with on the phone in his room) is more cautious. Pt reports no cough in the past several days. He continues to lie in prone positioning and has a great attitude toward recovery. He is now off steroids. Stopping insulin and BSGs. Review of Systems Review of Systems: All systems reviewed & are unremarkable except as noted in Subjective Physical Exam Physical Exam: CONSTITUTIONAL: WNWD, vitals as above, generally well- appearing EYES: pupils are equal and reactive bilaterally, normal conjunctivae, no scleral icterus ENT: external ear and nose normal, oropharynx clear, MMM NECK: trachea midline, no lymphadenopathy RESPIRATORY: clear to auscultation bilaterally, no crackles, rales or wheezes, normal respiratory effort, no conversational dyspnea while on 3LPM CARDIOVASCULAR: regular rate and rhythm, S1 and 2 heard without murmurs, gallops or rubs, no JVD, no peripheral edema GASTROINTESTINAL: soft, nontender, nondistended, no guarding. MUSCULOSKELETAL: strength 5/5 throughout, head is normocephalic and atraumatic SKIN: warm and dry NEUROLOGIC: No facial palsy, no dysarthria. CN 2-12 grossly intact, no sensory deficit, normal cognition, normal speech, no gross focal deficits. PSYCHIATRIC: alert cooperative and oriented to person, place and time. Results & Data Results & Data ([facility]) Vital Signs (Past 12 Hours) Vital Signs Temp Pulse Resp BP Pulse Ox 03/13/20 12:12 36.6 C 78 18 118/61 95 03/13/20 08:15 36.5 C 79 18 122/64 94 03/13/20 04:55 36.7 C 58 L 18 161/85 H 99 Laboratory Results Short CBC 03/13/20 Range/Units 08:46 WBC 16.87 H (4.8-10.8) K/uL Hgb 13.0 L (14.0-18.0) g/dL Hct 39.1 L (42-52) % Plt Count 378 (130-400) K/uL BMP 03/13/20 08:46 Sodium 140 Potassium 3.8 Chloride 105 Carbon Dioxide 31 BUN 21 H Creatinine 0.99 Glucose 106 H Calcium 8.8 Medications Administered Current Inpatient Medications Acetaminophen (Tylenol) 500 mg PO Q6H PRN PRN Reason: fever/pain Stop: 04/02/20 17:50 Last Admin: 03/06/20 22:35 Dose: 500 mg Documented by: Albuterol (Ventolin Hfa) 1 puffs INH QIDR PRN PRN Reason: Wheezing Stop: 04/02/20 06:59 Amlodipine Besylate (Norvasc) 5 mg PO QAM [facility] Stop: 04/02/20 08:59 Last Admin: 03/13/20 08:10 Dose: 5 mg Documented by: Ascorbic Acid (Vitamin C) 500 mg PO BID [facility] Stop: 04/02/20 08:59 Last Admin: 03/13/20 08:03 Dose: 500 mg Documented by: Atorvastatin Calcium (Lipitor) 10 mg PO QAM [facility] Stop: 04/02/20 08:59 Last Admin: 03/13/20 08:11 Dose: 10 mg Documented by: Cyanocobalamin (Vitamin B-12) 1,000 mcg PO QAM [facility] Stop: 04/04/20 08:59 Last Admin: 03/13/20 08:10 Dose: 1,000 mcg Documented by: Dextrose (Dextrose 50%) 25 - 50 ml IV UD PRN; Protocol PRN Reason: Hypoglycemia Protocol Stop: 04/02/20 02:54 Enoxaparin Sodium (Lovenox) 40 mg SQ BID NOEL[facility] Stop: 04/03/20 20:59 Last Admin: 03/13/20 08:10 Dose: 40 mg Documented by: Glucagon (Glucagen) 1 mg SQ UD PRN; Protocol PRN Reason: Hypoglycemia Protocol Stop: 04/02/20 02:54 Glucose (Dex4 Glucose) 4 - 8 tabs PO UD PRN; Protocol PRN Reason: Hypoglycemia Protocol Stop: 04/02/20 02:54 Glucose (Glucose 40%) 15 - 30 gm PO UD PRN; Protocol PRN Reason: Hypoglycemia Protocol Stop: 04/02/20 02:54 Guaifenesin (Mucinex) 600 mg PO Q12 [facility] Stop: 04/02/20 02:54 Last Admin: 03/13/20 08:03 Dose: 600 mg Documented by: Promethazine HCl 12.5 mg/ (Sodium Chloride) 50.5 mls @ 202 mls/hr IV Q6H PRN PRN Reason: Nausea And Vomiting Stop: 04/02/20 02:54 Insulin Aspart (Novolog Flexpen) 0 units [facility] Stop: 04/12/20 07:29 Last Admin: 03/13/20 12:05 Dose: 5 units Documented by: Insulin Glargine (Lantus Solostar Pen) 0 units SC [facility]; Protocol Stop: 04/05/20 08:59 Last Admin: 03/13/20 08:05 Dose: 8 units Documented by: Ipratropium [place] (Atrovent Hfa) 1 puffs INH QIDR PRN PRN Reason: Shortness Of Breath Or Wheezing Stop: 04/02/20 06:59 Lorazepam (Ativan) 0.5 mg PO TID PRN PRN Reason: Anxiety Stop: 04/02/20 02:54 Last Admin: 03/12/20 20:32 Dose: 0.5 mg Documented by: Losartan Potassium (Cozaar) 100 mg PO [facility] Stop: 04/02/20 08:59 Last Admin: 03/13/20 08:11 Dose: 100 mg Documented by: Magnesium Oxide (Mag-Ox) [facility] Stop: 04/02/20 08:59 Last Admin: 03/13/20 08:10 Dose: 400 mg Documented by: Miscellaneous (Carbohydrates For Hypoglycemia) 15 - 30 gm PO UD PRN PRN Reason: Hypoglycemia Protocol Stop: 04/02/20 02:54 Miscellaneous Information (Consult Glycemic Management Pharmacy) 1 ea N/A UD PRN PRN Reason: Consult Stop: 04/02/20 17:29 Pantoprazole Sodium (Protonix) 40 [facility] [place] Stop: 04/02/20 08:59 Last Admin: 03/13/20 08:09 Dose: 40 mg Documented by: Sertraline HCl (Zoloft) 25 mg PO QAM [facility] Stop: 04/02/20 08:59 Last Admin: 03/13/20 08:12 Dose: 25 mg Documented by: Tramadol HCl (Ultram) 25 mg PO Q4H PRN PRN Reason: Pain Stop: 04/02/20 02:54 Vitamin D (Vitamin D3) 1,000 units [facility] [place] Stop: 04/02/20 08:59 Last Admin: 03/13/20 08:11 Dose: 1,000 units Documented by: Zinc Sulfate (Zinc Sulfate) 220 mg PO QAM [facility] Stop: 04/02/20 08:59 Last Admin: 03/13/20 08:10 Dose: 220 mg Documented by: (1) Pneumonia Laterality: bilateral Lung location: unspecified part of lung Pneumonia type: due to unspecified organism Qualified Code(s): J18.9 - Pneumonia, unspecified organism
[2020-03-14] MEDS: CYANOCOBALAMIN 500 MCG TABLET (VITAMIN B-12) PO SCH (08:47)
[2020-03-14] MEDS: AMLODIPINE BESYLATE 5 MG TAB PO SCH (08:47)
[2020-03-14] MEDS: ATORVASTATIN 10 MG TAB PO SCH (08:47)
[2020-03-14] MEDS: MAGNESIUM OXIDE 400 MG TAB PO SCH (08:47)
[2020-03-14] MEDS: ASCORBIC ACID 500 MG TAB PO SCH ×2 (08:48→20:25)
[2020-03-14] MEDS: CHOLECALCIFEROL 1,000 UNITS 25 MCG TAB PO SCH (08:48)
[2020-03-14] MEDS: PANTOprazole 40 MG TAB PO SCH (08:48)
[2020-03-14] MEDS: LOSARTAN POTASSIUM 50 MG TAB PO SCH (08:48)
[2020-03-14] MEDS: guaiFENesin 600 MG TABCR PO SCH ×2 (08:48→20:25)
[2020-03-14] MEDS: ZINC SULFATE 220 MG CAPSULE PO SCH (08:48)
[2020-03-14] MEDS: SERTRALINE HCL 50 MG TABLET PO SCH (08:49)
[2020-03-14] MEDS: ENOXAPARIN INJ 40 MG/0.4 ML SYR SQ SCH ×2 (08:49→20:57)
[2020-03-14] MEDS ORDERED: INSULIN GLARGINE SOLOSTAR 100 UNITS/ML 3 ML PEN SC SCH (09:00)
[2020-03-14] MEDS: INSULIN ASPART 100 UNITS/ML 3 ML PEN SC SCH (09:13)
[2020-03-14] MEDS ORDERED: INSULIN ASPART 100 UNITS/ML 3 ML PEN SC SCH (09:36)
[2020-03-14 10:28] LABS: Basophils # (auto) 0.02 K/uL (0-0.2); Basophils % (auto) 0.1 %; Eosinophils # (auto) 0.13 K/uL (0-0.5); Eosinophils % (auto) 0.9 %; Hematocrit (blood only) 37.6 % (42-52); Hemoglobin 12.5 g/dL (14.0-18.0); Immature Granulocytes # (auto) 0.05 K/uL (0.00-0.02); Immature Granulocytes % (auto) 0.4 %; Lymphocytes # (auto) 2.27 K/uL (1.2-3.4); Mean Corpuscular Hemoglobin 29.1 pg (25-34); Mean Corpuscular Hgb Conc 33.2 g/dL (32-36); Mean Corpuscular Volume 87.4 fL (80-100); Mean Platelet Volume 9.7 fL (7.4-10.4); Monocytes # (auto) 1.43 K/uL (0.11-0.59); Monocytes % (auto) 10.1 %; Neutrophils # (auto) 10.26 K/uL (1.4-6.5); Neutrophils % (auto) 72.5 %; Platelet Count 354 K/uL (130-400); RDW Coefficient of Variation 14.1 % (11.5-14.5); RDW Standard Deviation 44.6 fL (36.4-46.3); White Blood Count 14.16 K/uL (4.8-10.8)
[2020-03-14 10:57] LABS: BUN Creatinine Ratio 20.7 (10-20); Calcium 8.5 mg/dl (8.5-10.1); Creatinine Clr Calc Pharmacy 74.3 ml/min; Est GFR (African American) 81.8; Est GFR (Non-African American) 70.6; Potassium 3.6 mmol/L (3.5-5.1)
[2020-03-14 11:02] LABS: C Reactive Protein 1.18 mg/dl (0-0.29); Ferritin 622.8 ng/ml (8-388)
--- NOTE | 2020-03-14 18:00 | Hospitalist Progress Note ---
Date of Service March 14, 2020 Assessment & Plan (1) Acute hypoxemic respiratory failure: 2/2 COVID infection. Improved now to approx 3 LPM oxygen supplementation at rest, and with exertion. Will plan to continue to wean as tolerated and send him home with oxygen supplementation that is a reasonable level of support such as 2-3 LPM. (2) COVID-19: Completed 10 days dexamethasone, remdesivir course, and received one unit of convalescent plasma. Completed a course of antibiotics to rule out bacterial superinfection. At this point it is about supporting him from an oxygen standpoint. and he continues to feel improved each day. Inflammatory markers have improved. Cont weaning oxygen as above. Continue Zinc, Vitamin C, Vitamin D3 and Magnesium supplements. (3) Pneumonia: 2/2 covid. Received remdesivir and abx course. Repeat CXR in 4-6 weeks to ensure complete resolution of pneumonia, already improved on imaging. (4) Hypoxia: 2/2 COVID, plan as above. (5) Bacteremia: Blood cx positive for Gram negative bacilli Repeat blood cx collected on 03/04 showed no growth, ? contaminant. Doing well clinically. Repeat procalcitonin negative Completed antibiotic therapy (6) Elevated d-dimer: Elevated D dimer on admission likely related to COVID-19 infection as opposed to a thromboembolic clot. This was trended as a marker of inflammation. (7) Hypertension: controlled on Norvasc and cozaar. (8) Hyperglycemia: Likely related to steroid use. He received a course of dexamethasone and also had an outpatient prednisone taper prior to that. Review of outpatient A1C was 6.2 in Jun 2019 and A1C was 6.8 here, however, there is no prior history of diabetes. This level should be repeated by PCP as outpatient off steroids in the next couple of weeks. No further insulin or BSG checks needed at this point. (9) DVT prophylaxis: Lovenox 40mg BID Full Dispo-home in am after two step to assess home oxygen needs. Marian Truong DO [facility] Hospitalist Admission and Anticipated Discharge Date Admission Date: March 03, 2020 Subjective doing well today ambulated with nurse around room and maintained 90% sats on 3LPM with ambulation discussed plan with -all in favor of him home in am formal two step ordered for am Review of Systems Review of Systems: All systems reviewed & are unremarkable except as noted in Subjective Physical Exam Physical Exam: CONSTITUTIONAL: WNWD, vitals as above, generally well- appearing EYES: normal conjunctivae, no scleral icterus ENT: external ear and nose normal, oropharynx clear, MMM NECK: trachea midline, no lymphadenopathy RESPIRATORY: clear to auscultation bilaterally, no crackles, rales or wheezes, normal respiratory effort, no conversational dyspnea CARDIOVASCULAR: regular rate and rhythm, S1 and 2 heard without murmurs, gallops or rubs, no JVD, no peripheral edema GASTROINTESTINAL: soft, nontender, nondistended, no guarding. MUSCULOSKELETAL: strength 5/5 throughout, head is normocephalic and atraumatic SKIN: warm and dry NEUROLOGIC: No facial palsy, no dysarthria. CN 2-12 grossly intact, no sensory deficit, normal cognition, normal speech, no gross focal deficits. PSYCHIATRIC: alert cooperative and oriented to person, place and time. Results & Data Results & Data ([facility]) Vital Signs (Past 12 Hours) Vital Signs Temp Pulse Pulse Resp BP Pulse Ox 03/14/20 16:50 36.6 C 77 18 110/61 94 03/14/20 11:56 36.7 C 72 19 126/62 94 03/14/20 09:22 64 03/14/20 07:27 36.7 C 70 18 130/73 96 Laboratory Results Short CBC 03/14/20 Range/Units 09:55 WBC 14.16 H (4.8-10.8) K/uL Hgb 12.5 L (14.0-18.0) g/dL Hct 37.6 L (42-52) % Plt Count 354 (130-400) K/uL BMP 03/14/20 09:55 Sodium 140 Potassium 3.6 Chloride 105 Carbon Dioxide 28 BUN 21 H Creatinine 1.02 Glucose 115 H Calcium 8.5 Medications Administered Current Inpatient Medications Acetaminophen (Tylenol) 500 mg PO Q6H PRN PRN Reason: fever/pain Stop: 04/02/20 17:50 Last Admin: 03/06/20 22:35 Dose: 500 mg Documented by: Albuterol (Ventolin Hfa) 1 puffs INH QIDR PRN PRN Reason: Wheezing Stop: 04/02/20 06:59 Amlodipine Besylate (Norvasc) 5 mg PO QAM [facility] Stop: 04/02/20 08:59 Last Admin: 03/14/20 08:47 Dose: 5 mg Documented by: Ascorbic Acid (Vitamin C) 500 mg PO BID [facility] Stop: 04/02/20 08:59 Last Admin: 03/14/20 20:25 Dose: 500 mg Documented by: Atorvastatin Calcium (Lipitor) 10 mg PO QAM [facility] Stop: 04/02/20 08:59 Last Admin: 03/14/20 08:47 Dose: 10 mg Documented by: Cyanocobalamin (Vitamin B-12) 1,000 mcg PO QAM [facility] Stop: 04/04/20 08:59 Last Admin: 03/14/20 08:47 Dose: 1,000 mcg Documented by: Enoxaparin Sodium (Lovenox) 40 mg SQ BID [facility] Stop: 04/03/20 20:59 Last Admin: 03/14/20 20:57 Dose: 40 mg Documented by: Guaifenesin (Mucinex) 600 mg PO Q12 [facility] Stop: 04/02/20 02:54 Last Admin: 03/14/20 20:25 Dose: 600 mg Documented by: Promethazine HCl 12.5 mg/ (Sodium Chloride) 50.5 mls @ 202 mls/hr IV Q6H PRN PRN Reason: Nausea And Vomiting Stop: 04/02/20 02:54 Ipratropium [place] (Atrovent Hfa) 1 puffs INH QIDR PRN PRN Reason: Shortness Of Breath Or Wheezing Stop: 04/02/20 06:59 Lorazepam (Ativan) 0.5 mg PO TID PRN PRN Reason: Anxiety Stop: 04/02/20 02:54 Last Admin: 03/12/20 20:32 Dose: 0.5 mg Documented by: Losartan Potassium (Cozaar) [facility] [place]: 04/02/20 08:59 Last Admin: 03/14/20 08:48 Dose: 100 mg Documented by: Magnesium Oxide (Mag-Ox) [facility] Stop: 04/02/20 08:59 Last Admin: 03/14/20 08:47 Dose: 400 mg Documented by: Pantoprazole Sodium (Protonix) [facility] Stop: 04/02/20 08:59 Last Admin: 03/14/20 08:48 Dose: 40 mg Documented by: Sertraline HCl (Zoloft) 25 mg PO QA [facility] Stop: 04/02/20 08:59 Last Admin: 03/14/20 08:49 Dose: 25 mg Documented by: Tramadol HCl (Ultram) 25 mg PO Q4H PRN PRN Reason: Pain Stop: 04/02/20 02:54 Vitamin D (Vitamin D3) 1,000 [facility] Stop: 04/02/20 08:59 Last Admin: 03/14/20 08:48 Dose: 1,000 units Documented by: Zinc Sulfate (Zinc Sulfate) 220 [facility] Stop: 04/02/20 08:59 Last Admin: 03/14/20 08:48 Dose: 220 mg Documented by: (1) Pneumonia Laterality: bilateral Lung location: unspecified part of lung Pneumonia type: due to unspecified organism Qualified Code(s): J18.9 - Pneumonia, unspeci fied organism
[2020-03-15] MEDS: LOSARTAN POTASSIUM 50 MG TAB PO SCH (08:08)
[2020-03-15] MEDS: ATORVASTATIN 10 MG TAB PO SCH (08:08)
[2020-03-15] MEDS: ENOXAPARIN INJ 40 MG/0.4 ML SYR SQ SCH (08:08)
[2020-03-15] MEDS: guaiFENesin 600 MG TABCR PO SCH (08:09)
[2020-03-15] MEDS: AMLODIPINE BESYLATE 5 MG TAB PO SCH (08:09)
[2020-03-15] MEDS: MAGNESIUM OXIDE 400 MG TAB PO SCH (08:09)
[2020-03-15] MEDS: PANTOprazole 40 MG TAB PO SCH (08:10)
[2020-03-15] MEDS: CYANOCOBALAMIN 500 MCG TABLET (VITAMIN B-12) PO SCH (08:10)
[2020-03-15] MEDS: ZINC SULFATE 220 MG CAPSULE PO SCH (08:10)
[2020-03-15] MEDS: CHOLECALCIFEROL 1,000 UNITS 25 MCG TAB PO SCH (08:10)
[2020-03-15] MEDS: ASCORBIC ACID 500 MG TAB PO SCH (08:10)
[2020-03-15] MEDS: SERTRALINE HCL 50 MG TABLET PO SCH (08:11)
--- NOTE | 2020-03-15 14:18 | Discharge Summary ---
Date of Service March 15, 2020 Admission HPI Per Admitting Provider History obtained from patient and records. Medical history significant for hypertension, hyperlipidemia, prediabetes as per records, past tobacco abuse, chronic anemia (baseline hemoglobin of 13), skin cancer as per records. Patient not feeling well the last 6 days. Raspy barking cough. No chest pain or S OB initially. Later with watery diarrhea symptoms without abdominal pain. 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 PCP prescribed steroid course for possible bronchitis. Arrangements made for outpatient COVID-19 testing. Patient and 's COVID-19 swabs later found to be positive. Patient and instructed to quarantine at home. Patient later noted pleuritic chest pain with coughing and worsening shortness of breath. Chest pain improve on the flat/supine position as per patient. Cough continues to be dry as per patient. Generalized weakness without syncope. Poor appetite. Fever at home. At the ER, O2 sats noted to be 70s on room air initially. 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 Admission Exam Per Admitting Provider GENERAL: uncomfortable, anxious, minimal respiratory distress, obese SKIN: Pallor , warm HEENT: Alopecia, bespectacled, pale palpebral conjunctivae, no ptosis, dry buccal mucosa, nasal cannula in place NECK : Supple, no tenderness CHEST : Crackles both lung montes expiratory wheezes, no tenderness HEART : RRR, no obvious murmurs ABDOMEN: Some distention, nontender RECTAL : Intact sphincter, yellow stool (FOBT negative) EXTREMITIES : No LE swelling/tenderness, no other conspicuous deformities noted NEUROLOGIC : Coherent, no facial asymmetry, no other gross focality Principal Diagnosis Acute respiratory failure 2/2 novel coronavirus infection Discharge Exam CONSTITUTIONAL: WNWD, vitals as above, generally well-appearing EYES: normal conjunctivae, no scleral icterus ENT: external ear and nose normal, oropharynx clear, MMM NECK: trachea midline, no lymphadenopathy RESPIRATORY: clear to auscultation bilaterally, no crackles, rales or wheezes, normal respiratory effort, no conversational dyspnea CARDIOVASCULAR: regular rate and rhythm, S1 and 2 heard without murmurs, gallops or rubs, no JVD, no peripheral edema GASTROINTESTINAL: soft, nontender, nondistended, no guarding. MUSCULOSKELETAL: strength 5/5 throughout, head is normocephalic and atraumatic SKIN: warm and dry NEUROLOGIC: No facial palsy, no dysarthria. CN 2-12 grossly intact, no sensory deficit, normal cognition, normal speech, no gross focal deficits. PSYCHIATRIC: alert cooperative and oriented to person, place and time. Discharge Data Allergies Allergy/AdvReac Type Severity Reaction Status Date / Time No Known Allergies Allergy Unknown Verified 03/02/20 23:07 Consultations 03/02/20 23:29 ED Decision to Admit Stat 03/03/20 02:55 Consult Pulmonology Routine Hospital Course (1) Acute hypoxemic respiratory failure: 2/2 COVID infection. Improved now to approx 3 LPM oxygen supplementation at rest, and with exertion. Will plan to continue to wean as tolerated and send him home with oxygen supplementation that is a reasonable level of support such as 2-3 LPM. (2) COVID-19: Completed 10 days dexamethasone, remdesivir course, and received one unit of convalescent plasma. Completed a course of antibiotics to rule out bacterial superinfection. At this point it is about supporting him from an oxygen standpoint. and he continues to feel improved each day. Inflammatory markers have improved. Cont weaning oxygen as above. Continue Zinc, Vitamin C, Vitamin D3 and Magnesium supplements. (3) Pneumonia: 2/2 covid. Received remdesivir and abx course. Repeat CXR in 4-6 weeks to ensure complete resolution of pneumonia, already improved on imaging. (4) Hypoxia: 2/2 COVID, plan as above. (5) Bacteremia: Blood cx positive for Gram negative bacilli Repeat blood cx collected on 03/04 showed no growth, ? contaminant. Doing well clinically and further workup is not needed. Repeat procalcitonin negative Completed antibiotic therapy as above. (6) Elevated d-dimer: Elevated D dimer on admission likely related to COVID-19 infection as opposed to a thromboembolic clot. This was trended as a marker of inflammation. (7) Hypertension: controlled on Norvasc and cozaar. (8) Hyperglycemia: Likely related to steroid use. He received a course of dexamethasone and also had an outpatient prednisone taper prior to that. Review of outpatient A1C was 6.2 in Jun 2019 and A1C was 6.8 here, however, there is no prior history of diabetes. This level should be repeated by PCP as outpatient off steroids in the next couple of weeks. No further insulin or BSG checks needed at this point. Total Time Total Time Spent Total Time Spent (In Minutes): 60 Total Time Includes: Examination of the Patient, Discharge Planning, Medication Reconciliation and Communication With Other Providers Discharge Plan Discharge Items Patient Disposition: Home - Self-Care Reason For Visit: RESP FAILURE Discharge Diagnosis: Acute respiratory failure 2/2 novel coronavirus infection Condition on Discharge: Good Activity: Resume your previous activity Non-emergency contact: Primary Care Provider Call non-emergency contact if: you have any medication questions, your symptoms worsen and you have a fever Follow-up/Referrals: Robyn Parham DO [Primary Care Provider] - 03/18/20 12:00 pm (03/18/2020 12:00 PM Provider Robyn Parham DO [facility] THIS IS A TELEMEDICINE APPOINTMENT. Please call to verify an email address and receive instructions.) Diet: Regular Addtl Attending Provider Instructions: YOU DO NOT NEED TO SELF QUARANTINE AT THIS POINT PER THE CDC GUIDANCE BELOW: https://www.cdc.gov/coronavirus/2019-ncov/hc p/pjrwozrvypb-rsenzhcbxmaa-wzgaevah.html Symptomatic patients with COVID-19 should remain in Transmission-Based Precautions until either: Symptom-based strategy -At least 3 days (72 hours) have passed since recovery defined as resolution of fever without the use of fever-reducing medications and improvement in respiratory symptoms (e.g., cough, shortness of breath); and, -At least 10 days have passed since symptoms first appeared Test-based strategy -Resolution of fever without the use of fever-reducing medications and -Improvement in respiratory symptoms (e.g., cough, shortness of breath), and -Negative results of an FDA Emergency Use Authorized COVID-19 molecular assay for detection of SARS-CoV-2 RNA from at least two consecutive respiratory specimens collected > or =24 hours apart (total of two negative specimens) [1]. See Interim Guidelines for Collecting, Handling, and Testing Clinical Specimens for 2019 Novel Coronavirus (2019-nCoV). Of note, there have been reports of prolonged detection of RNA without direct correlation to viral culture. You had an elevated HBA1C noted during your stay here. However, you have been on a significant amount of steroids which may falsely elevate this number. This is a screening test for diabetes, and should be repeated with your primary care physician (PCP) in the next couple of months. It is recommended that you follow-up with your PCP at the time/date above to ensure you are still doing well and your oxygen needs continue to improve. It is recommended that you continue to sleep in a prone position as tolerated. Please refer to cdc.gov for further guidance on this. Thank you for your participation in the [facility] Study on researching the safety of convalescent plasma. Please refer to the website for further information regarind this research. If you are interested in becoming a donor, please contact your local blood donation center. It was a pleasure taking care of you! Please call if you have any questions or problems. You can reach a [facility] hospitalist on duty at [facility] 24 hours a day by calling [phone]. Take care of yourself. Marian Truong, Hollywood Presbyterian Medical Centerist Pending Studies at Discharge: No Stand-Alone Forms: My [facility], Smoking Cessation Medications and DC Order Prescriptions: New (DME) Oxygen Home Liters Per Minute See Rx Instructions .ROUTE .MEDSUPPLY Qty: 1 RF: 0 Continued atorvastatin [Lipitor] 10 mg tablet 10 mg PO QAM RF: 0 amlodipine [Norvasc] 5 mg tablet 5 mg PO QAM RF: 0 lorazepam [Ativan] 0.5 mg tablet 0.5 mg PO TID PRN (Reason: Anxiety) RF: 0 esomeprazole magnesium [Nexium] 40 mg capsule,delayed release(DR/EC) 40 mg PO QAM RF: 0 sertraline [Zoloft] 25 mg tablet 25 mg PO QAM RF: 0 losartan [Cozaar] 100 mg tablet 100 mg PO QAM RF: 0 Discontinued prednisone 10 mg tablet 0 mg PO UD RF: 0 Discharge Orders: Discharge Order (Routine); Ordered 03/15/20 Ordered By: Marian Hinkle/Other Patient Handouts: Managing Type 2 Diabetes, Diabetes: Meal Planning, A1C Admission Data Admit Date/Time: 03/03/20 01:16 Attending Provider: Marian Truong Admit Provider: Jon Adams Primary Care Provider: Robyn Parham Other Providers: Jon Adams ; Sal Mai ; Zachariah Cooper ; Beverly Fair ; Te Ornelas ; Jon Paredes ; Jani Hester ; Andrés Barraza ; Viviana Marie ; Yesica Boyer Other Interventions: Discharge Summary Assessment (RN) Last Done: 03/15/20 14:49 DC Date/Time DO NOT enter until pt leaves facility: 03/15/20 16:12
== END 2020-03-15 16:12 | disposition home or self-care (01) | DRG 177 ==
LOC: ED 22:30 → 2S 03-03 01:16 → SUATTDRO 03-03 01:16 → 2S 03-03 02:16 → 2E 03-04 15:18
DX: T38.0X5A Adverse effect of glucocorticoids and synthetic analogues, initial encounter; Z90.49 Acquired absence of other specified parts of digestive tract; J12.89 Other viral pneumonia; E78.5 Hyperlipidemia, unspecified; D64.9 Anemia, unspecified; Z87.891 Personal history of nicotine dependence; I10 Essential (primary) hypertension; R73.03 Prediabetes; R78.81 Bacteremia; U07.1 COVID-19; J96.01 Acute respiratory failure with hypoxia; R73.9 Hyperglycemia, unspecified